=== PATIENT | female | born 1930 | race Caucasian/White ===

== ENCOUNTER 2016-09-01 12:22 | Emergency (ER) | payer MEDICARE, BC ==
[~2016-09-01] VITALS: Ht 170.2 cm; Wt 75.0 kg
[~2016-09-01 12:22] MED LIST: ALBU6.7H INH; ALLO100T PO; AMLO5TAB22 PO; AMOX500T PO; B COTAB3 PO; COZA100T PO; FLON0.053; FURO20TA PO; HYDR10TA23 PO; KLOR20TA6 PO; LEFL20 PO; LEVO.1 PO; LUTE20TA PO; META48.53 PO; NEXI20CA PO; PRAD75CA PO; PRED20 PO; TIMO0.255 OU; TOPR50TA PO; TRAD5TAB PO; VITA400C28 PO; ZITH250T PO
[2016-09-01 12:26] VITALS: BP 188/89; PULSE 100; TEMP 97.3; O2SAT 98
--- NOTE | 2016-09-01 13:57 | PD ---
HPI Chief Complaint: Abnormal Results Time Seen by Provider: 13:53 Travel History International Travel<30 days: No Contact w/Intl Traveler<30days: No Traveled to known affect area: No History of Present Illness HPI The patient is an 86-year-old female sent by Dr. Waite to be evaluated due to low hemoglobin and possible congestive heart failure. She states she's been short of breath with a nonproductive cough and increasing lower extremity edema for the last 2-3 weeks. She denies any nausea, vomiting, fever, chills, chest pain, abdominal pain. She states that Dr. Waite increased her Lasix to 40 mg twice daily but she continues to be symptomatic. Patient's primary doctor is Justin Byrd, Dr. Hernandez is her security dispatcher. Her past medical history significant for diabetes, hypertension, renal carcinoma status post nephrectomy , atrial fibrillation, parathyroidectomy. PFSH Past Medical History Arthritis: Yes (rhumatoid arthritis) Autoimmune Disease: Yes (RHEUMATOID ARTHRITIS) Anxiety: No Depression: No Heart Rhythm Problems: Yes (A.FIB) Cancer: Yes (right KIDNEY- nephrectomy) Cardiac Catheterization: Yes (NO STENTS) Cardiovascular Problems: Yes High Cholesterol: Yes Chemotherapy: No Chest Pain: No Congestive Heart Failure: Yes Cerebrovascular Accident: No Diabetes: Yes Patient Takes Glucophage: No Diminished Hearing: No Endocrine: Yes Gastrointestinal Disorders: Yes GERD: Yes Glaucoma: Yes Gout: Yes Genitourinary: Yes (R KIDNEY REMOVED DUE TO CANCER) Hiatal Hernia: Yes Hypertension: Yes Implanted Vascular Access Dvce: No Kidney Stones: No Musculoskeletal: Yes Neurologic: No Psychiatric: No Reproductive: No Respiratory: No Immunizations Current: No Pancreatitis: Yes Radiation Therapy: No Renal Failure: No Thyroid Disease: Yes Triglycerides - High: Yes Ulcer: No PNEUMOCCOCAL Vaccine (Year): 2009 ?: Not Past Surgical History Abdominal Surgery: Yes (28 ft. of colon removed 2010) Appendectomy: Yes Arteriovenous Shunt: No Cardiac Surgery: Yes (CARDIAC CATH) Cholecystectomy: Yes Ear Surgery: No Endocrine Surgery: Yes (PARATHYROIDECTOMY) Eye Surgery: Yes (L EYE SCARE TISSUE REMOVED FROM RETINA , L EYE CATARACT REMOVED) Genitourinary Surgery: Yes (R NEPHRECTOMY 2003) Gynecologic Surgery: Yes (HYSTERECTOMY) Hysterectomy: Yes Neurologic Surgery: No Oral Surgery: No Thoracic Surgery: Yes (BILATERAL LUMPECTOMY) Other Surgery: Yes Social History Alcohol Use: No Tobacco Use: No Substance Use: No Allergies-Medications (Allergen,Severity, Reaction): Coded Allergies: Adhesives (Verified Allergy, Severe, skin breakdown, 09/01/16) PATIENT STATES NO ISSUES WITH TAPES/ADHESIVES Cytomel (Verified Allergy, Severe, hypertension, 09/01/16) Reported Meds & Prescriptions Reported Meds & Active Scripts Active Reported Biotin 1,000 Mcg Tab 1,000 Mg PO DAILY Timoptic Opth Drops (Timolol Opth Drops) 0.5 % Soln 1 Drop EACH EYE BID Preservision Areds (Multiple Vitamins W/ Minerals) 1 Tab 1 Tab PO DAILY Metamucil (Psyllium Hydrophilic Mucilloid) 48.57 % Pow PO DAILY Take 1 teaspoonful daily Vitamin B Complex (B-Complex Vitamins) 1 Tab 1 Tab PO DAILY Lutein 20 Mg Cap 20 Mg PO DAILY Multivitamin Women 50+ (Multiple Vitamins W/ Minerals) 1 Tab Tab 1 Tab PO DAILY Citracal Maximum (Calcium Citrate-Vitamin D) 315-250 Mg-Unit Tab 2 Tab PO BID Allopurinol 100 Mg Tab 100 Mg PO DAILY Nexium (Esomeprazole DR) 40 Mg Capdr 40 Mg PO DAILY Leflunomide 20 Mg Tab 20 Mg PO WEFR Take 1 tablet (20mg) on Tuesday,Tuesday and Tuesday Tradjenta (Linagliptin) 5 Mg Tab 5 Mg PO DAILY Lasix (Furosemide) 20 Mg Tab 20 Mg PO DAILY IN THE PM Lasix (Furosemide) 40 Mg Tab 40 Mg PO DAILY IN THE AM Levothyroxine (Levothyroxine Sodium) 100 Mcg Tab 100 Mcg PO DAILY Metoprolol Succinate ER 24 HR (Metoprolol Succinate) 100 Mg Tab 100 Mg PO BID Hydralazine (Hydralazine HCl) 10 Mg Tab 20 Mg PO TID Take with a meal Losartan (Losartan Potassium) 100 Mg Tab 100 Mg PO HS Norvasc (Amlodipine Besylate) 5 Mg Tab 5 Mg PO BID Crestor (Rosuvastatin Calcium) 10 Mg Tab 10 Mg PO HS Review of Systems Except as stated in HPI: all other systems reviewed are Neg General / Constitutional: No: Fever Eyes: No: Visual changes HENT: No: Headaches, Lightheadedness Cardiovascular: Positive: Edema, No: Chest Pain or Discomfort Respiratory: Positive: Cough, Shortness of Breath Gastrointestinal: No: Nausea, Abdominal Pain Physical Exam Narrative GENERAL: Well-developed, well-nourished, alert elderly female. Resting comfortably in no acute distress. SKIN: Warm and dry. HEAD: Atraumatic. Normocephalic. EYES: Pupils equal and round. No scleral icterus. No injection or drainage. ENT: No nasal bleeding or discharge. Mucous membranes pink and moist. NECK: Trachea midline. No JVD. CARDIOVASCULAR: Irregularly irregular. No murmur appreciated. 2+ pitting bilateral lower extremity edema. RESPIRATORY: No accessory muscle use. Diminished in bases. GASTROINTESTINAL: Abdomen soft, non-tender, nondistended. Hepatic and splenic margins not palpable. MUSCULOSKELETAL: No obvious deformities. No clubbing. No cyanosis. No edema. NEUROLOGICAL: Awake and alert. No obvious cranial nerve deficits. Motor grossly within normal limits. Normal speech. PSYCHIATRIC: Appropriate mood and affect; insight and judgment normal. Data Data Last Documented VS Vital Signs Date Time Temp Pulse Resp B/P Pulse Ox O2 Delivery O2 Flow Rate FiO2 09/01/16 16:45 94 18 167/94 98 Room Air 09/01/16 15:35 2 09/01/16 12:26 97.3 Orders Complete Blood Count With Diff (09/01/16 13:50) Comprehensive Metabolic Panel (09/01/16 13:50) B-Type Natriuretic Peptide (09/01/16 13:50) Act Partial Throm Time (Ptt) (09/01/16 13:50) Prothrombin Time / Inr (Pt) (09/01/16 13:50) Magnesium (Mg) (09/01/16 13:50) Ckmb (Isoenzyme) Profile (09/01/16 13:50) Troponin I (09/01/16 13:50) Urinalysis - C+S If Indicated (09/01/16 13:50) Electrocardiogram (09/01/16 13:50) Chest, Pa & Lat (09/01/16 13:50) Type And Screen (09/01/16 13:50) Furosemide Inj (Lasix Inj) (09/01/16 16:15) Potassium Chloride (Kcl) (09/01/16 16:15) Labs Laboratory Tests Test 09/01/16 14:03 White Blood Count 7.7 TH/MM3 Red Blood Count 3.50 MIL/MM3 Hemoglobin 9.7 GM/DL Hematocrit 30.4 % Mean Corpuscular Volume 86.9 FL Mean Corpuscular Hemoglobin 27.6 PG Mean Corpuscular Hemoglobin 31.8 % Concent Red Cell Distribution Width 18.9 % Platelet Count 293 TH/MM3 Mean Platelet Volume 8.4 FL Neutrophils (%) (Auto) 68.5 % Lymphocytes (%) (Auto) 12.1 % Monocytes (%) (Auto) 13.6 % Eosinophils (%) (Auto) 3.5 % Basophils (%) (Auto) 2.3 % Neutrophils # (Auto) 5.3 TH/MM3 Lymphocytes # (Auto) 0.9 TH/MM3 Monocytes # (Auto) 1.1 TH/MM3 Eosinophils # (Auto) 0.3 TH/MM3 Basophils # (Auto) 0.2 TH/MM3 CBC Comment DIFF FINAL Differential Comment Prothrombin Time 12.1 SEC Prothromb Time International 1.1 RATIO Ratio Activated Partial 31.1 SEC Thromboplast Time Urine Color YELLOW Urine Turbidity CLEAR Urine pH 5.5 Urine Specific [place] 1.007 Urine Protein 30 mg/dL Urine Glucose (UA) NEG mg/dL Urine Ketones NEG mg/dL Urine Occult Blood NEG Urine Nitrite NEG Urine Bilirubin NEG Urine Urobilinogen LESS THAN 2.0 MG/DL Urine Leukocyte Esterase TRACE Urine RBC LESS THAN 1 /hpf Urine WBC 4 /hpf Urine Hyaline Casts 2 /lpf Microscopic Urinalysis Comment CULT NOT INDICATED Sodium Level 143 MEQ/L Potassium Level 3.7 MEQ/L Chloride Level 101 MEQ/L Carbon Dioxide Level 32.3 MEQ/L Anion Gap 10 MEQ/L Blood Urea Nitrogen 30 MG/DL Creatinine 1.97 MG/DL Estimat Glomerular Filtration 24 ML/MIN Rate Random Glucose 104 MG/DL Calcium Level 9.7 MG/DL Magnesium Level 2.1 MG/DL Total Bilirubin 0.4 MG/DL Aspartate Amino Transf 16 U/L (AST/SGOT) Alanine Aminotransferase 20 U/L (ALT/SGPT) Alkaline Phosphatase 105 U/L Total Creatine Kinase 40 U/L Troponin I LESS THAN 0.02 NG/ML B-Type Natriuretic Peptide 604 PG/ML Total Protein 7.3 GM/DL Albumin 3.9 GM/DL Blood Type O POSITIVE Antibody Screen NEGATIVE MDM Medical Decision Making Medical Screen Exam Complete: Yes Emergency Medical Condition: Yes Interpretation(s) Vital Signs Date Time Temp Pulse Resp B/P Pulse Ox O2 Delivery O2 Flow Rate FiO2 09/01/16 12:26 97.3 100 188/89 98 Room Air Differential Diagnosis CHF versus anemia versus acute on chronic renal failure versus electrolyte abnormality versus cardiac arrhythmia versus other Narrative Course Patient is an 86-year-old female sent to the emergency department for evaluation by Dr. Waite. Labs and imaging were ordered and pending, EKG ordered. Workup initiated in triage, care patient will be transferred to provider when a medical bed is available. Sylvia Aguilera [facility] Sep 01, 2016 13:57
[2016-09-01 14:19] LABS: AUTOMATED NEUTROPHIL # 5.3 TH/MM3 (1.8-7.7); BASOPHIL # 0.2 TH/MM3 (0-0.2); BASOPHIL % 2.3 % (0.0-2.0); EOSINOPHIL # 0.3 TH/MM3 (0-0.4); EOSINOPHIL % 3.5 % (0.0-4.0); HEMATOCRIT 30.4 % (35.0-46.0); HEMO FLAGS DIFF FINAL; LYMPH % 12.1 % (9.0-44.0); LYMPHOCYTE # 0.9 TH/MM3 (1.0-4.8); MEAN CELL VOLUME 86.9 FL (80.0-100.0); MEAN CORPUSCULAR HEMOGLOBIN 27.6 PG (27.0-34.0); MEAN CORPUSCULAR HGB CONC 31.8 % (32.0-36.0); MONO % 13.6 % (0.0-8.0); NEUT % 68.5 % (16.0-70.0); PLATELET COUNT 293 TH/MM3 (150-450); RED CELL DISTRIBUTION WIDTH 18.9 % (11.6-17.2); WHITE BLOOD COUNT 7.7 TH/MM3 (4.0-11.0)
[2016-09-01 14:22] LABS: BLOOD, URINE NEG (NEG); GLUCOSE,URINE NEG (NEG); HYALINE CAST, URINE 2 /lpf (RARE); KETONE, URINE NEG (NEG); NITRITE,URINE NEG (NEG); PH, URINE 5.5 (5.0-8.5); URINE COLOR YELLOW (YELLW/STRAW)
[2016-09-01 14:26] LABS: COMMENT (UR) CULT NOT INDICATED; CULTURE IF INDICATED CULT NOT INDICATED
[2016-09-01 14:32] LABS: APTT (PATIENT) 31.1 SEC (24.3-30.1); INTERNATIONAL NORMALIZED RATIO 1.1 RATIO; PROTHROMBIN TIME - PATIENT 12.1 SEC (9.8-11.6)
[2016-09-01 14:43] LABS: ANION GAP 10 MEQ/L (5-15); AST (GOT) 16 U/L (15-37); BICARBONATE 32.3 MEQ/L (21.0-32.0); BLOOD UREA NITROGEN 30 MG/DL (7-18); CHLORIDE 101 MEQ/L (98-107); GLOMERULAR FILTRATION RATE 24 ML/MIN (>89); MAGNESIUM 2.1 MG/DL (1.5-2.5); POTASSIUM 3.7 MEQ/L (3.5-5.1); SODIUM (NA) 143 MEQ/L (136-145)
[2016-09-01 14:48] LABS: ALKALINE PHOSPHATASE 105 U/L (45-117); ALT (GPT) 20 U/L (10-53); TOTAL BILIRUBIN ADULT 0.4 MG/DL (0.2-1.0)
[2016-09-01 14:52] LABS: CREATINE KINASE 40 U/L (26-192)
--- NOTE | 2016-09-01 15:10 | RADRPT ---
EXAM DATE/TIME: 09/01/2016 14:39 [facility] COMPARISON: CHEST PA & LAT, June 30, 2014, 12:09. INDICATIONS : Patient has been short of breath and congested for a month. She also has fluid in her legs. MEDICAL HISTORY : None. SURGICAL HISTORY : None. ENCOUNTER: Initial ACUITY: 1 month PAIN SCORE: 0/10 LOCATION: chest FINDINGS: Moderate pleural effusion with basilar consolidation has developed on the left. Right lung remains cl ear. No pneumothorax on either side. Mild cardiomegaly is stable. CONCLUSION: Nonspecific moderate pleural effusion and basilar consolidation on the left, new. Jcarlos Cartwright MD on September 01, 2016 at 15:08 Board Certified Radiologist. This report was verified electronically.
[2016-09-01 15:15] VITALS: BP 171/91; PULSE 96; RESP 18; O2SAT 98
[2016-09-01] MEDS ORDERED: ALLO100T PO (16:01)
[2016-09-01] MEDS ORDERED: LOSA100T PO (16:01)
[2016-09-01] MEDS ORDERED: ROSU10 PO (16:01)
[2016-09-01] MEDS ORDERED: LEVO100T5 PO (16:01)
[2016-09-01] MEDS ORDERED: AMLO5 PO (16:01)
[2016-09-01] MEDS ORDERED: LUTE20CA PO (16:01)
[2016-09-01] MEDS ORDERED: MULT1TAB96 PO (16:01)
[2016-09-01] MEDS ORDERED: OCUVTAB4 PO (16:01)
[2016-09-01] MEDS ORDERED: VITATAB11 PO (16:01)
[2016-09-01] MEDS ORDERED: METO100T9 PO (16:01)
[2016-09-01] MEDS ORDERED: NEXI40CA PO (16:01)
[2016-09-01] MEDS ORDERED: TIMO0.5S5 EACH EYE (16:01)
[2016-09-01] MEDS ORDERED: CITRTAB11 PO (16:01)
[2016-09-01] MEDS ORDERED: HYDR10TA23 PO (16:01)
[2016-09-01] MEDS ORDERED: BIOT1000 PO (16:01)
[2016-09-01] MEDS ORDERED: FURO1TAB62 PO (16:01)
[2016-09-01] MEDS ORDERED: FURO1TAB60 PO (16:01)
[2016-09-01] MEDS ORDERED: META48.54 PO (16:01)
[2016-09-01] MEDS ORDERED: TRAD5TAB PO (16:01)
[2016-09-01] MEDS ORDERED: LEFL1TAB3 PO (16:01)
--- NOTE | 2016-09-01 16:09 | PD ---
Physical Exam Narrative Patient was seen by safety assistant and signed out to me. Data Data Last Documented VS Vital Signs Date Time Temp Pulse Resp B/P Pulse Ox O2 Delivery O2 Flow Rate FiO2 09/01/16 15:35 98 Nasal Cannula 2 09/01/16 15:15 96 18 171/91 09/01/16 12:26 97.3 Orders Complete Blood Count With Diff (09/01/16 13:50) Comprehensive Metabolic Panel (09/01/16 13:50) B-Type Natriuretic Peptide (09/01/16 13:50) Act Partial Throm Time (Ptt) (09/01/16 13:50) Prothrombin Time / Inr (Pt) (09/01/16 13:50) Magnesium (Mg) (09/01/16 13:50) Ckmb (Isoenzyme) Profile (09/01/16 13:50) Troponin I (09/01/16 13:50) Urinalysis - C+S If Indicated (09/01/16 13:50) Electrocardiogram (09/01/16 13:50) Chest, Pa & Lat (09/01/16 13:50) Type And Screen (09/01/16 13:50) Furosemide Inj (Lasix Inj) (09/01/16 16:15) Potassium Chloride (Kcl) (09/01/16 16:15) Labs Laboratory Tests Test 09/01/16 14:03 White Blood Count 7.7 TH/MM3 Red Blood Count 3.50 MIL/MM3 Hemoglobin 9.7 GM/DL Hematocrit 30.4 % Mean Corpuscular Volume 86.9 FL Mean Corpuscular Hemoglobin 27.6 PG Mean Corpuscular Hemoglobin 31.8 % Concent Red Cell Distribution Width 18.9 % Platelet Count 293 TH/MM3 Mean Platelet Volume 8.4 FL Neutrophils (%) (Auto) 68.5 % Lymphocytes (%) (Auto) 12.1 % Monocytes (%) (Auto) 13.6 % Eosinophils (%) (Auto) 3.5 % Basophils (%) (Auto) 2.3 % Neutrophils # (Auto) 5.3 TH/MM3 Lymphocytes # (Auto) 0.9 TH/MM3 Monocytes # (Auto) 1.1 TH/MM3 Eosinophils # (Auto) 0.3 TH/MM3 Basophils # (Auto) 0.2 TH/MM3 CBC Comment DIFF FINAL Differential Comment Prothrombin Time 12.1 SEC Prothromb Time International 1.1 RATIO Ratio Activated Partial 31.1 SEC Thromboplast Time Urine Color YELLOW Urine Turbidity CLEAR Urine pH 5.5 Urine Specific [place] 1.007 Urine Protein 30 mg/dL Urine Glucose (UA) NEG mg/dL Urine Ketones NEG mg/dL Urine Occult Blood NEG Urine Nitrite NEG Urine Bilirubin NEG Urine Urobilinogen LESS THAN 2.0 MG/DL Urine Leukocyte Esterase TRACE Urine RBC LESS THAN 1 /hpf Urine WBC 4 /hpf Urine Hyaline Casts 2 /lpf Microscopic Urinalysis Comment CULT NOT INDICATED Sodium Level 143 MEQ/L Potassium Level 3.7 MEQ/L Chloride Level 101 MEQ/L Carbon Dioxide Level 32.3 MEQ/L Anion Gap 10 MEQ/L Blood Urea Nitrogen 30 MG/DL Creatinine 1.97 MG/DL Estimat Glomerular Filtration 24 ML/MIN Rate Random Glucose 104 MG/DL Calcium Level 9.7 MG/DL Magnesium Level 2.1 MG/DL Total Bilirubin 0.4 MG/DL Aspartate Amino Transf 16 U/L (AST/SGOT) Alanine Aminotransferase 20 U/L (ALT/SGPT) Alkaline Phosphatase 105 U/L Total Creatine Kinase 40 U/L Troponin I LESS THAN 0.02 NG/ML B-Type Natriuretic Peptide 604 PG/ML Total Protein 7.3 GM/DL Albumin 3.9 GM/DL Blood Type O POSITIVE Antibody Screen NEGATIVE MDM Supervised Visit with BRAULIO: Yes Interpretation(s) Last Impressions Chest X-Ray 09/01/16 1350 Signed Impressions: Service Date/Time: Thursday, September 01, 2016 14:39 - CONCLUSION: Nonspecific moderate pleural effusion and basilar consolidation on the left, new. Jcarlos Cartwright MD 1605 p.m. CBC WBC 7.7. Hemoglobin 9.7 hematocrit 30.4. BUN 30. Creatinine 1.97. BNP 604. UA is negative. Narrative Course I spoke with Dr. Waite, patient's repair mechanic. Patient most recent hemoglobin was 8.3. Previous hemoglobin was 10.0. Today's hemoglobin 9.7. Patient recently had positive Hemoccult at home test. Patient was seen by personal physician and referred to GI for colonoscopy. Patient is pending for colonoscopy next week. Dr. Waite advised Lasix IV and discharged patient to follow up with personal physician. Patient stopped taking Plavix 2 days ago after advise from Dr. Hernandez, her childcare administrator. Lasix 40 mg IV. KCl 20 mEq by mouth. Diagnosis Primary Impression: Anemia Qualified Code: D64.9 - Anemia, unspecified type Additional Impression: Acute exacerbation of CHF (congestive heart failure) Qualified Code: I50.9 - Acute on chronic congestive heart failure, unspecified congestive heart failure type Patient Instructions: General Instructions Additional Instruction: Continue with medications. Follow-up with personal physician, GI specialist and nephrology. Return if worse. Med/Other Pt SpecificInfo: No Change to Meds Disposition: 01 DISCHARGE HOME Condition: Stable Charlie Johnson MD Sep 01, 2016 16:09
[2016-09-01] MEDS ORDERED: FUROSEMIDE 40 MG/4 ML VIAL IV PUSH ONE (16:15)
[2016-09-01] MEDS ORDERED: POTASSIUM CHLORIDE 20 MEQ CONTROLLED RELEASE TAB PO ONE (16:15)
[2016-09-01 16:45] VITALS: BP 167/94; PULSE 94; RESP 18; O2SAT 98
--- NOTE | 2016-09-02 12:59 | EKG ---
Date Performed: 09/01/2016 Time Performed: 14:15:32 PTAGE: 86 years EKG: ATRIAL FIBRILLATION CONTROLLED VENTRICULAR RATE NON SPECIFIC ST ABNORMALITY Compared to elfego or tracing no significant change PREVIOUS TRACING : 03/17/2014 07.11 DOCTOR: Jhonathan Blanco Interpretating Date/Time 09/02/2016 12:58:05
== END 2016-09-01 17:08 | disposition home or self-care (01) ==
LOC: NEPA 12:22
DX: D64.9 Anemia, unspecified (principal); I50.9 Heart failure, unspecified; R94.31 Abnormal electrocardiogram [ECG] [EKG]; J90 Pleural effusion, not elsewhere classified; I48.91 Unspecified atrial fibrillation; E11.9 Type 2 diabetes mellitus without complications; I10 Essential (primary) hypertension; E07.9 Disorder of thyroid, unspecified; R91.8 Other nonspecific abnormal finding of lung field
CPT/HCPCS: 71020; 80053; 81001; 82550; 83735; 83880; 84484; 85025; 85610; 85730; 86850; 86900; 86901; 93005; 96374; 99285; J1940

== ENCOUNTER → 2017-05-04 | Outpatient (CLI) | payer MEDICARE, BC ==
[~2017-05-04] MED LIST changes: -ALBU6.7H INH; -ALLO100T PO; +AMLO5 PO; -AMLO5TAB22 PO; -AMOX500T PO; +APIX2.5T PO; -B COTAB3 PO; +BIOT1000 PO; +BUME1TAB PO; +CITRTAB11 PO; -COZA100T PO; -FLON0.053; +FURO1TAB60 PO; +FURO1TAB62 PO; -FURO20TA PO; +HYDR-3798 PO; -HYDR10TA23 PO; -KLOR20TA6 PO; +LEFL1TAB3 PO; -LEFL20 PO; -LEVO.1 PO; +LEVO100T5 PO; +LOSA100T PO; +LUTE20CA PO; -LUTE20TA PO; -META48.53 PO; +META48.54 PO; +METO10TA4 PO; +METO1TAB43 PO; -NEXI20CA PO; +NEXI40CA PO; +OCUVTAB4 PO; +PARI1CAP4 PO; -PRAD75CA PO; -PRED20 PO; +PROC20005 SQ; +ROSU10 PO; -TIMO0.255 OU; +TIMO0.5S5 EACH EYE; -TOPR50TA PO; +ULOR40TA PO; -VITA400C28 PO; +VITATAB11 PO; -ZITH250T PO
[2017-05-04 11:30] LABS: AUTOMATED NEUTROPHIL # 4.8 TH/MM3 (1.8-7.7); BASOPHIL # 0.1 TH/MM3 (0-0.2); EOSINOPHIL # 0.2 TH/MM3 (0-0.4); EOSINOPHIL % 2.8 % (0.0-4.0); HEMATOCRIT 32.4 % (35.0-46.0); HEMO FLAGS DIFF FINAL; LYMPH % 12.9 % (9.0-44.0); LYMPHOCYTE # 0.9 TH/MM3 (1.0-4.8); MEAN CELL VOLUME 92.5 FL (80.0-100.0); MEAN CORPUSCULAR HEMOGLOBIN 29.2 PG (27.0-34.0); MEAN CORPUSCULAR HGB CONC 31.6 % (32.0-36.0); MONO % 12.9 % (0.0-8.0); NEUT % 70.4 % (16.0-70.0); PLATELET COUNT 246 TH/MM3 (150-450); RED BLOOD COUNT 3.51 MIL/MM3 (4.00-5.30); RED CELL DISTRIBUTION WIDTH 18.3 % (11.6-17.2); WHITE BLOOD COUNT 6.8 TH/MM3 (4.0-11.0)
[2017-05-04 11:40] LABS: APTT (PATIENT) 28.8 SEC (24.3-30.1); INTERNATIONAL NORMALIZED RATIO 1.1 RATIO; PROTHROMBIN TIME - PATIENT 11.7 SEC (9.8-11.6)
--- NOTE | 2017-05-04 12:20 | RADRPT ---
EXAM DATE/TIME: 05/04/2017 12:01 [facility] COMPARISON: No previous studies available for comparison. INDICATIONS : Evaluate for pneumonia, pneumothorax, or communicable disease. Pre op for Ateriovenous fistula. MEDICAL HISTORY : Hypertension. Kidney cancer. SURGICAL HISTORY : None. ENCOUNTER: Initial ACUITY: 1 day PAIN SCORE: 0/10 LOCATION: Bilateral chest FINDINGS: No infiltrate, effusion or pneumothorax demonstrated. Mild pleural and parenchymal scarring seen post erolaterally of the left lung base. Heart size stable, upper limits of normal. Thoracic aorta is tortuous and atherosclerotic. CONCLUSION: No acute cardiopulmonary disease demonstrated. Mild left base scarring. Jcarlos Cartwright MD on May 04, 2017 at 12:18 Board Certified Radiologist. This report was verified electronically.
[2017-05-04 12:40] LABS: BICARBONATE 32.4 MEQ/L (21.0-32.0); POTASSIUM 3.6 MEQ/L (3.5-5.1)
--- NOTE | 2017-05-04 16:41 | EKG ---
Date Performed: 05/04/2017 Time Performed: 10:58:59 PTAGE: 87 years EKG: ATRIAL FIBRILLATION BORDERLINE LEFT AXIS DEVIATION NONSPECIFIC ST & T-WAVE ABNORMALITY ABNO RMAL RHYTHM ECG No significant change from prior electrocardiogram. PREVIOUS TRACING : 09/01/2016 14.15 DOCTOR: Niko Kaur Interpretating Date/Time 05/04/2017 16:40:48
== END ==
LOC: CPRE 10:37
PROVIDERS: ATTEND Surgery
DX: Z01.812 Encounter for preprocedural laboratory examination (principal); Z01.810 Encounter for preprocedural cardiovascular examination; Z01.811 Encounter for preprocedural respiratory examination; N18.6 End stage renal disease
CPT/HCPCS: 36415; 71020; 80048; 85025; 85610; 85730; 93005

== ENCOUNTER → 2017-05-09 | Day surgery (SDC) | payer MEDICARE, BC ==
[~2017-05-09] VITALS: Ht 167.6 cm; Wt 76.8 kg
[~2017-05-09] MED LIST changes: +BUPIVACAINE HCL PF 0.5% 30 ML VIAL ONE; +CHLORHEXIDINE GLUCONATE 2 % 1 PACK (2 CLOTHS) TOPICAL PRN; +DEXAMETHASONE SOD PHOS 4 MG/ML VIAL IV ONE; +DO NOT ADM ANY ANTICOAGULANT DRUGS PRN; -FURO1TAB60 PO; -FURO1TAB62 PO; +HEPARIN SODIUM - IV 10,000 UNITS/10 ML VIAL ONE; +HEPARIN SODIUM - SQ 10,000 UNITS/ML VIAL ONE; +HEPARIN-NS/PF INJ 500 ML ONE; +KETAMINE HCL 500 MG/5 ML VIAL ONE; +LACTATED RINGER'S 1000 ML IV PRN; +LIDOCAINE HCL 1% PF 5 ML AMPULE OTHER ONE; -META48.54 PO; +METOPROLOL TARTRATE 25 MG TAB PO PRN; +MIDAZOLAM HCL 2 MG/2 ML VIAL ONE; +MORPHINE SULFATE 2 MG/ML INJ IV PRN; +ONDANSETRON HCL 4 MG/2 ML VIAL IV PUSH ONE; +PHENYLEPH/NS 1000 MCG/10 ML SYR IV ONE; +POVIDONE IODINE 5% (ANTISEPSIS KIT) 4 APPLICATIONS EACH NARE PRN; +PROPOFOL 200 MG/20 ML AMP IV ONE; +PROTAMINE SULFATE 50 MG/5 ML VIAL ONE; +SODIUM CHLORID 0.9% 500 ML IV PRN; +ceFAZolin 2 GM PREMIX 50 ML ONE
--- NOTE | 2017-05-09 07:46 | PD.VS.PN ---
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 No changes in medical condition that would preclude surgery. Stopped Eliquis after Sat dose. Ready for OR. Labs: Hct 32 plt 246 K 3.6 INR 1.1 Blood: none needed Imaging: Preop AVF eval reviewed - L basilic vein is adequate Orders: NPO Ancef 2g IV OCTOR Post-operative destination: PACU Operative site marked: Yes Consent: Informed consent has been obtained from Collette Perez. I have explained the procedure in detail and discussed the risks, benefits, and potential complications. All questions have been answered. Patient contact information: Kash Remy [phone] Gavino Cuevas MD May 09, 2017 07:46
--- NOTE | 2017-05-09 10:10 | HHI.PR ---
cc: Stephan Waite MD Immediate Post Op Note Procedure Date: May 09, 2017 Pre Op Diagnosis: near ESRD, need for HD access Post Op Diagnosis: near ESRD, need for HD access Surgeon: Gavino Cuevas Rnp(s): none Procedure: L brachiobasilic AVF (1st stage) Findings: 3mm vein, 2mm artery Additional Information: + thrill at conclusion palpable radial pulse Complications: none Specimen(s) removed: none Estimated blood loss: 10mL Anesthesia: LMA Drains: None Fluids: 450mL IVF Patient to: PACU Patient Condition: Good Date/Time of Procedure: SEE SURGICAL CARE RECORD Gavino Cuevas MD May 09, 2017 10:10
--- NOTE | 2017-05-09 11:18 | MP ---
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 PROCEDURE Left brachiobasilic arteriovenous fistula (first stage). ATTENDING SURGEON Gavino Cuevas MD ANESTHESIA General. INDICATIONS Ms. Perez is a 87-year-old lady who has near end-stage renal disease, not yet on dialysis. She is taken to the operating room for elective fistula creation. DESCRIPTION OF PROCEDURE Informed consent was obtained from the patient. She was taken to the operating room and placed supine on the operating table. Appropriate time-out was taken to ensure the patient's identity, the operative site and planned procedure. The administration of 2 grams of Ancef was initiated prior to skin incision and will be discontinued after single preoperative dose. Everyone in the room agreed with time-out and we proceeded. Her left upper extremity was prepped and draped. Incision was made in the medial aspect of the distal upper arm and carried down through subcutaneous tissue with electrocautery. The basilic vein was identified and dissected free for several centimeters and side branches were ligated with 3-0 Silk. The vein was marked for orientation. The brachial artery was identified in the medial aspect of the incision and dissected free. The patient was systemically heparinized with 3000 units of IV heparin. The distal end of the vein was clamped at the right angle, transected and distal end was oversewn with 3-0 Silk. Proximal and distal control of the brachial artery were obtained with profunda clamps and a longitudinal arteriotomy was made with an 11 blade and extended with [place] scissors. The vein was spatulated and sewn end-to-side with running 6-0 Prolene suture. At the completion it was flushed and noted to be hemostatic. The clamps were all released, there was nice thrill in the fistula and nice pulse in the wrist. The wound was infiltrated with Marcaine and closed with 2-0 Polysorb, 3-0 Polysorb and 4-0 Monocryl. The sponge and needle counts were correct at the end of the case. I was present and scrubbed for the entire procedure. MD FRANKY Baez/[place] /10:19 AM /11:12 AM
[2017-05-09 11:35] VITALS: BP 110/73; PULSE 76; RESP 18; TEMP 97.9; O2SAT 96
== END | disposition home or self-care (01) ==
LOC: HSDC 06:30
PROVIDERS: ATTEND Surgery
DX: I13.2 Hypertensive heart and chronic kidney disease with heart failure and with stage 5 chronic kidney disease, or end stage renal disease (principal); N18.6 End stage renal disease; I50.9 Heart failure, unspecified; E11.22 Type 2 diabetes mellitus with diabetic chronic kidney disease; D63.1 Anemia in chronic kidney disease; N25.81 Secondary hyperparathyroidism of renal origin
CPT/HCPCS: 01844; 36821; 86850; 86900; 86901; J0690; J1100; J1644; J2250; J2370; J2405; J2720; J3010; J7040

== ENCOUNTER 2017-07-07 15:50 | Inpatient (IN) | payer MEDICARE, BC ==
[~2017-07-07] VITALS: Ht 167.6 cm; Wt 80.5 kg
[2017-07-07] VITALS (7 sets, daily range): BP systolic 102–132; BP diastolic 56–75; PULSE 94–101; RESP 16–18; TEMP 97.8–98.1; O2SAT 96–98
[~2017-07-07 15:50] MED LIST changes: -BUPIVACAINE HCL PF 0.5% 30 ML VIAL ONE; -CHLORHEXIDINE GLUCONATE 2 % 1 PACK (2 CLOTHS) TOPICAL PRN; -DEXAMETHASONE SOD PHOS 4 MG/ML VIAL IV ONE; -DO NOT ADM ANY ANTICOAGULANT DRUGS PRN; -HEPARIN SODIUM - IV 10,000 UNITS/10 ML VIAL ONE; -HEPARIN SODIUM - SQ 10,000 UNITS/ML VIAL ONE; -HEPARIN-NS/PF INJ 500 ML ONE; -KETAMINE HCL 500 MG/5 ML VIAL ONE; -LACTATED RINGER'S 1000 ML IV PRN; -LIDOCAINE HCL 1% PF 5 ML AMPULE OTHER ONE; -METOPROLOL TARTRATE 25 MG TAB PO PRN; -MIDAZOLAM HCL 2 MG/2 ML VIAL ONE; -MORPHINE SULFATE 2 MG/ML INJ IV PRN; -ONDANSETRON HCL 4 MG/2 ML VIAL IV PUSH ONE; -PHENYLEPH/NS 1000 MCG/10 ML SYR IV ONE; -POVIDONE IODINE 5% (ANTISEPSIS KIT) 4 APPLICATIONS EACH NARE PRN; -PROPOFOL 200 MG/20 ML AMP IV ONE; -PROTAMINE SULFATE 50 MG/5 ML VIAL ONE; -SODIUM CHLORID 0.9% 500 ML IV PRN; -ceFAZolin 2 GM PREMIX 50 ML ONE
[2017-07-07] MEDS ORDERED: PANTOPRAZOLE INJ 80 MG in SODIUM CHLORIDE 0.9% INJ 35 ML IV ONE (19:41)
[2017-07-07] MEDS ORDERED: PANTOPRAZOLE INJ 80 MG in SODIUM CHLORIDE 0.9% INJ 100 ML IV SCH (19:41)
--- NOTE | 2017-07-07 19:48 | PD ---
HPI Chief Complaint: GI Complaint Time Seen by Provider: 19:25 Travel History International Travel<30 days: No Contact w/Intl Traveler<30days: No Traveled to known affect area: No History of Present Illness HPI 87yo F with PMH of afib on eliquis, CHF, ESRD not on HD yet presents to the ED with c/o dark stool for 1.5 weeks. Pt said she called her ice handler Dr. Waite's office and was told to come to the ED. Pt has also been coughing for a few days with rhinorrhea. Denies any fever, chest pain, sob, n/v, abdominal pain, focal weakness or numbness. Pt states she does feel more sob with taking a few steps which is new for her. Dr. Hernandez is her shoe dresser. PFSH Past Medical History Arthritis: Yes (RA) Autoimmune Disease: Yes (RHEUMATOID ARTHRITIS) Anxiety: No Depression: No Heart Rhythm Problems: Yes Cancer: Yes (right KIDNEY- nephrectomy, melanomax2) Cardiac Catheterization: Yes (NO STENTS) Cardiovascular Problems: Yes (AFIB) High Cholesterol: Yes Chemotherapy: No Chest Pain: No Congestive Heart Failure: Yes Cerebrovascular Accident: No Diabetes: Yes (type ii) Patient Takes Glucophage: No Diminished Hearing: No Endocrine: Yes Gastrointestinal Disorders: Yes (REFLUX) GERD: Yes Glaucoma: Yes Gout: Yes Genitourinary: Yes (R KIDNEY REMOVED DUE TO CANCER) Hepatitis: No Hiatal Hernia: Yes Hypertension: Yes Immune Disorder: Yes (RA) Implanted Vascular Access Dvce: No Kidney Stones: No Musculoskeletal: Yes (RHEUMATOID ARTHRITIS, ROTATOR CUFF TEAR RIGHT) Neurologic: No Psychiatric: No Reproductive: No Respiratory: No Immunizations Current: Yes Pancreatitis: Yes Radiation Therapy: No Renal Failure: No Thyroid Disease: Yes Triglycerides - High: Yes Ulcer: No Tetanus Vaccination: > 5 Years Influenza Vaccination: Yes PNEUMOCCOCAL Vaccine (Year): 2009 ?: Not Past Surgical History Abdominal Surgery: Yes ( COLON RESECTION, bobby, appy) AICD: No Appendectomy: Yes Arteriovenous Shunt: No Cardiac Surgery: Yes (CARDIAC CATH) Cholecystectomy: Yes Ear Surgery: No Endocrine Surgery: Yes (PARATHYROIDx2) Eye Surgery: Yes (LEFT EYE RETINAL) Genitourinary Surgery: Yes (R NEPHRECTOMY 2003) Gynecologic Surgery: Yes (HYSTERECTOMY) Hysterectomy: Yes Joint Replacement: No Neurologic Surgery: No Oral Surgery: No Pacemaker: No Thoracic Surgery: Yes (BILATERAL LUMPECTOMY) Other Surgery: Yes (FISTULA LT ARM) Social History Alcohol Use: No Tobacco Use: No Substance Use: No Allergies-Medications (Allergen,Severity, Reaction): Coded Allergies: adhesive (Verified Allergy, Severe, skin breakdown, 07/07/17) PATIENT STATES NO ISSUES WITH TAPES/ADHESIVES diltiazem (Verified Allergy, Severe, 07/07/17) SOB, GI UPSET liothyronine (Verified Allergy, Severe, hypertension, 07/07/17) liotrix (Verified Allergy, Severe, hypertension, 07/07/17) nitrofurantoin (Verified Allergy, Severe, B/P ELEVATED, 07/07/17) Reported Meds & Prescriptions Reported Meds & Active Scripts Active Reported Eliquis (Apixaban) 2.5 Mg Tab 2.5 Mg PO BID Uloric (Febuxostat) 40 Mg Tab 40 Tab PO DAILY Paricalcitol 1 Mcg Cap 1 Mcg PO 3XWEEK Bumetanide 1 Mg Tab 1 Mg PO BID Metolazone 10 Mg Tab 10 Mg PO QOD Hydralazine HCl 10 Mg Tablet 20 Mg PO TID Procrit Inj (Epoetin Marcelo) 20,000 Unit/Ml Inj 20,000 Units SQ EVERY 2 WEEKS Biotin 1,000 Mcg Tab 1,000 Mg PO DAILY Timoptic Opth Drops (Timolol Opth Drops) 0.5 % Soln 1 Drop EACH EYE BID Preservision Areds (Multiple Vitamins W/ Minerals) 1 Tab 1 Tab PO DAILY Vitamin B Complex (B-Complex Vitamins) 1 Tab 1 Tab PO DAILY Lutein 20 Mg Cap 20 Mg PO DAILY Citracal Maximum (Calcium Citrate-Vitamin D) 315-250 Mg-Unit Tab 2 Tab PO BID Nexium (Esomeprazole DR) 40 Mg Capdr 40 Mg PO DAILY Leflunomide 20 Mg Tab 20 Mg PO MOWE Take 1 tablet (20mg) on Tuesday,Tuesday and Tuesday Tradjenta (Linagliptin) 5 Mg Tab 5 Mg PO DAILY Levothyroxine (Levothyroxine Sodium) 100 Mcg Tab 100 Mcg PO DAILY Metoprolol Succinate ER 24 HR (Metoprolol Succinate) 100 Mg Tab 100 Mg PO BID Losartan (Losartan Potassium) 100 Mg Tab 100 Mg PO HS Norvasc (Amlodipine Besylate) 5 Mg Tab 5 Mg PO BID Crestor (Rosuvastatin Calcium) 10 Mg Tab 10 Mg PO HS Review of Systems Except as stated in HPI: all other systems reviewed are Neg Physical Exam Narrative GENERAL: 87yo F not in distress. SKIN: Focused skin assessment warm/dry. HEAD: Atraumatic. Normocephalic. EYES: Pupils equal and round. No scleral icterus. No injection or drainage. ENT: No nasal bleeding or discharge. Mucous membranes pink and moist. NECK: Trachea midline. No JVD. CARDIOVASCULAR: Irregular rate and rhythm. No murmur appreciated. RESPIRATORY: No accessory muscle use. Bibasilar crackles. GASTROINTESTINAL: Abdomen soft, +TTP RLQ. No rebound tenderness or guarding. MUSCULOSKELETAL: LUE: +AV fistula with thrill. Bilateral lower ext edema. NEUROLOGICAL: Awake and alert. No obvious cranial nerve deficits. Motor grossly within normal limits. Normal speech. PSYCHIATRIC: Appropriate mood and affect; insight and judgment normal. Data Data Last Documented VS Vital Signs Date Time Temp Pulse Resp B/P (MAP) Pulse Ox O2 Delivery O2 Flow Rate FiO2 07/07/17 21:32 95 18 102/66 (78) 97 Room Air 07/07/17 20:30 97.8 Orders Orders Complete Blood Count With Diff (07/07/17 19:41) Comprehensive Metabolic Panel (07/07/17 19:41) Prothrombin Time / Inr (Pt) (07/07/17 19:41) Act Partial Throm Time (Ptt) (07/07/17 19:41) Urinalysis - C+S If Indicated (07/07/17 19:41) Type And Screen (07/07/17 19:41) Sodium Chloride 0.9... W/Pantoprazole In (07/07/17 19:41) Ct Abd/Pel W/O Iv Contrast (07/07/17 ) Chest, Single Ap (07/07/17 ) Electrocardiogram (07/07/17 ) B-Type Natriuretic Peptide (07/07/17 19:44) Pantoprazole Inj (Protonix Inj) (07/07/17 20:15) Troponin I (07/07/17 19:50) Red Blood Cells (Rbc) (07/07/17 21:24) Blood Product Administration (07/07/17 21:24) Sodium Chlor 0.9% 250 Ml Inj (Ns 250 Ml (07/07/17 21:30) Admit Order (Ed Use Only) (07/07/17 21:47) Labs Laboratory Tests Test 07/07/17 19:50 07/07/17 21:26 White Blood Count 9.9 TH/MM3 Red Blood Count 2.93 MIL/MM3 Hemoglobin 7.9 GM/DL Hematocrit 25.6 % Mean Corpuscular Volume 87.2 FL Mean Corpuscular Hemoglobin 26.9 PG Mean Corpuscular Hemoglobin Concent 30.8 % Red Cell Distribution Width 17.4 % Platelet Count 413 TH/MM3 Mean Platelet Volume 7.6 FL Neutrophils (%) (Auto) 74.6 % Lymphocytes (%) (Auto) 11.4 % Monocytes (%) (Auto) 12.3 % Eosinophils (%) (Auto) 1.3 % Basophils (%) (Auto) 0.4 % Neutrophils # (Auto) 7.5 TH/MM3 Lymphocytes # (Auto) 1.1 TH/MM3 Monocytes # (Auto) 1.2 TH/MM3 Eosinophils # (Auto) 0.1 TH/MM3 Basophils # (Auto) 0.0 TH/MM3 CBC Comment DIFF FINAL Differential Comment Prothrombin Time 12.4 SEC Prothromb Time International Ratio 1.2 RATIO Activated Partial Thromboplast Time 26.8 SEC Blood Urea Nitrogen 86 MG/DL Creatinine 2.90 MG/DL Random Glucose 123 MG/DL Total Protein 7.4 GM/DL Albumin 3.5 GM/DL Calcium Level 9.7 MG/DL Alkaline Phosphatase 111 U/L Aspartate Amino Transf (AST/SGOT) 18 U/L Alanine Aminotransferase (ALT/SGPT) 17 U/L Total Bilirubin 0.4 MG/DL Sodium Level 138 MEQ/L Potassium Level 3.2 MEQ/L Chloride Level 96 MEQ/L Carbon Dioxide Level 33.7 MEQ/L Anion Gap 8 MEQ/L Estimat Glomerular Filtration Rate 15 ML/MIN Troponin I 0.02 NG/ML B-Type Natriuretic Peptide 754 PG/ML Urine Color YELLOW Urine Turbidity CLEAR Urine pH 5.5 Urine Specific Roberts 1.012 Urine Protein TRACE mg/dL Urine Glucose (UA) NEG mg/dL Urine Ketones NEG mg/dL Urine Occult Blood NEG Urine Nitrite NEG Urine Bilirubin NEG Urine Leukocyte Esterase SMALL Urine WBC 15-19 /hpf Urine WBC Clumps FEW Urine Squamous Epithelial Cells 0-5 /hpf Urine Bacteria OCC /hpf Microscopic Urinalysis Comment CULTURE INDICATED MDM Medical Decision Making Medical Screen Exam Complete: Yes Emergency Medical Condition: Yes Interpretation(s) EKG: Afib at 91bpm. ST depression V3-V6. Differential Diagnosis Colitis vs. malignancy vs. AV malformation vs. CHF exacerbation vs. pneumonia Narrative Course 87yo F with dark stool that is positive for hemaprompt for 1.5 weeks. Pt denies any chest pain or sob but does have exertional dyspnea that is worst than normal for a few days. EKG also with ischemic changes. O2 sat is 98% on RA and pt is speaking in complete sentences. Labs reviewed, no leukocytosis. H /H low at 7.9/25.6 which is at baseline. BNP elevated at 754. Troponin negative. Mildly hypokalemic, replace orally. BUN/creatinine 86/2.90 which is also baseline. Pt has AV fistula with good thrill in left arm and said that it has been 7 weeks but not ready yet. Said Dr. Cuevas saw her and plan to put in a catheter to start hemodialysis. CT a/p showed no acute changes. There is left renal lesions that can be further evaluated with outpatient MRI. CXR showed small left lung effusion. Mild compensated cardiomegaly. Pt given protonix and will transfuse 1 unit of RBC very slowly over [address] King and accepted to her service. Critical Care Narrative Aggregate critical care time was 35 minutes. Time to perform other separately billable procedures was not included in the critical care time. My time did not include minutes spent treating any other patients simultaneously or on activities that did not directly contribute to the patient's treatment. The services I provided to this patient were to treat and/or prevent clinically significant deterioration that could result in: cardiovascular collapse or . I provided critical care services requiring my management, as noted below: Chart data review, documentation time, medication orders and management, vital sign assessments/reviewing monitor data, ordering and reviewing lab tests, ordering and interpreting/reviewing x-rays and diagnostic studies, care of the patient and discussion of the patient with the admitting physicians. HemaPrompt Point of Care Internal Pos. & Neg. Controls: Passed Fecal Specimen Occult Blood: Positive Diagnosis Primary Impression: GI bleed Qualified Codes: K92.2 - Gastrointestinal hemorrhage, unspecified Admitting Information Admitting Physician Requests: Admit Vivi March DO Jul 07, 2017 19:48
[2017-07-07 20:01] LABS: AUTOMATED NEUTROPHIL # 7.5 TH/MM3 (1.8-7.7); BASOPHIL % 0.4 % (0.0-2.0); EOSINOPHIL # 0.1 TH/MM3 (0-0.4); EOSINOPHIL % 1.3 % (0.0-4.0); HEMATOCRIT 25.6 % (35.0-46.0); HEMOGLOBIN 7.9 GM/DL (11.6-15.3); LYMPH % 11.4 % (9.0-44.0); LYMPHOCYTE # 1.1 TH/MM3 (1.0-4.8); MEAN CELL VOLUME 87.2 FL (80.0-100.0); MEAN CORPUSCULAR HEMOGLOBIN 26.9 PG (27.0-34.0); MEAN CORPUSCULAR HGB CONC 30.8 % (32.0-36.0); MEAN PLATELET VOLUME 7.6 FL (7.0-11.0); MONO % 12.3 % (0.0-8.0); MONOCYTE # 1.2 TH/MM3 (0-0.9); NEUT % 74.6 % (16.0-70.0); PLATELET COUNT 413 TH/MM3 (150-450); RED BLOOD COUNT 2.93 MIL/MM3 (4.00-5.30); RED CELL DISTRIBUTION WIDTH 17.4 % (11.6-17.2); WHITE BLOOD COUNT 9.9 TH/MM3 (4.0-11.0)
[2017-07-07 20:11] LABS: CHLORIDE 96 MEQ/L (98-107); SODIUM (NA) 138 MEQ/L (136-145)
[2017-07-07 20:16] LABS: ALBUMIN 3.5 GM/DL (3.4-5.0); BICARBONATE 33.7 MEQ/L (21.0-32.0); CALCIUM 9.7 MG/DL (8.5-10.1); GLUCOSE,RANDOM 123 MG/DL (74-106)
[2017-07-07 20:17] LABS: BLOOD UREA NITROGEN 86 MG/DL (7-18); INTERNATIONAL NORMALIZED RATIO 1.2 RATIO; PROTHROMBIN TIME - PATIENT 12.4 SEC (9.8-11.6)
[2017-07-07 20:19] LABS: ALT (GPT) 17 U/L (10-53)
[2017-07-07 20:20] LABS: AST (GOT) 18 U/L (15-37); GLOMERULAR FILTRATION RATE 15 ML/MIN (>89)
[2017-07-07 20:21] LABS: TOTAL BILIRUBIN ADULT 0.4 MG/DL (0.2-1.0); TOTAL PROTEIN 7.4 GM/DL (6.4-8.2)
[2017-07-07 20:22] LABS: ALKALINE PHOSPHATASE 111 U/L (45-117)
--- NOTE | 2017-07-07 20:33 | RADRPT ---
EXAM DATE/TIME: 07/07/2017 20:02 [facility] COMPARISON: No previous studies available for comparison. INDICATIONS : Cough and short of breath. MEDICAL HISTORY : Hypertension. Kidney cancer. SURGICAL HISTORY : None. ENCOUNTER: Initial ACUITY: 1 day PAIN SCORE: 0/10 LOCATION: Bilateral chest FINDINGS: Trace atelectasis and very small effusion seen left lung base. Right lung clear. No pneumothorax. Mild cardiomegaly is stable. CONCLUSION: Mild atelectasis and small effusion of the left lung base. Mild compensated cardiomegaly unchanged. Jcarlos Cartwright MD on July 07, 2017 at 20:30 Board Certified Radiologist. This report was verified electronically.
[2017-07-07] MEDS: PANTOPRAZOLE INJ 80 MG in SODIUM CHLORIDE 0.9% INJ 100 ML IV SCH (20:37)
--- NOTE | 2017-07-07 20:39 | RADRPT ---
EXAM DATE/TIME: 07/07/2017 20:04 [facility] COMPARISON: Report only CT ABDOMEN & PELVIS W/O CONTRAST, June 28, 2011, 10:34. INDICATIONS : Right lower quadrant pain. Dark stool with positive hemaprompt. ORAL CONTRAST: No oral contrast ingested. RADIATION DOSE: 16.15 CTDIvol (mGy) MEDICAL HISTORY : Renal cell carcinoma. Gastroesophageal reflux disease. Pancreatitis.Hypertension. Congestive heart f ailure. SURGICAL HISTORY : Colon resection. Appendectomy.Cholecystectomy.Hysterectomy. Right nephrectomy. ENCOUNTER: Initial ACUITY: 1 week PAIN SCALE: 5/10 LOCATION: Right lower quadrant TECHNIQUE: Volumetric scanning of the abdomen and pelvis was performed. Using automated exposure control and ad justment of the mA and/or kV according to patient size, radiation dose was kept as low as reasonably achievable to obtain optimal diagnostic quality images. DICOM format image data is available electro nically for review and comparison. FINDINGS: LOWER LUNGS: There is a small pleural effusion in the visualized left lung base. LIVER: Intrahepatic lipoma measuring 16 mm by report unchanged. No acute hepatic abnormality demonstrated. P revious cholecystectomy. SPLEEN: Normal size without lesion. PANCREAS: Within normal limits. KIDNEYS: Previous right nephrectomy. Scattered masses of the left kidney measuring up to 2.4 cm in size that c annot be clearly characterized as cysts. There is a benign-appearing 3.3 cm cyst of the lower pole. ADRENAL GLANDS: Within normal limits. VASCULAR: There is no aortic aneurysm. BOWEL/MESENTERY: Diffuse wall thickening of the rectum and sigmoid colon. No high-grade inflammatory changes are seen. There is diverticulosis of the left side of the colon. No obstruction. No well-defined/measurable ma ss. Patient has had previous right hemicolectomy. The anastomosis is patent. ABDOMINAL WALL: Within normal limits. RETROPERITONEUM: There is no lymphadenopathy. BLADDER: No wall thickening or mass. REPRODUCTIVE: Within normal limits. INGUINAL: There is no lymphadenopathy or hernia. MUSCULOSKELETAL: No acute bony abnormality demonstrated. CONCLUSION: 1. Diverticulosis of the colon. There is diffuse wall thickening of the sigmoid colon and rectum, non specific but possibly chronic diverticular changes or a low-grade colitis. No high-grade inflammatory changes are demonstrated. There is no obstruction. 2. Multiple left renal lesions and some cannot be convincingly characterized as cysts. By report, at least some of these are new. It would probably be prudent to do an MRI of the abdomen with and withou t contrast on a nonemergent basis. Previous right nephrectomy changes without recurrent mass. 3. Benign intrahepatic lipoma by report unchanged. 4. Small, nonspecific pleural effusion of the visualized left lung base. There is panchamber enlargem ent of the heart. Jcarlos Cartwright MD on July 07, 2017 at 20:31 Board Certified Radiologist. This report was verified electronically.
[2017-07-07 20:54] LABS: TROPONIN I 0.02 NG/ML (0.02-0.05)
[2017-07-07] MEDS ORDERED: SODIUM CHLOR 0.9% 250 ML INJ 250 ML IV ONE (21:30)
[2017-07-07 21:32] LABS: BILIRUBIN, URINE NEG (NEG); BLOOD, URINE NEG (NEG); GLUCOSE,URINE NEG (NEG); KETONE, URINE NEG (NEG); NITRITE,URINE NEG (NEG); PH, URINE 5.5 (5.0-8.5); URINE LEUKOCYTE ESTERASE SMALL (NEG)
[2017-07-07] MEDS ORDERED: FUROSEMIDE 20 MG/2 ML VIAL IV PUSH PRN (21:45)
[2017-07-07] MEDS ORDERED: NALOXONE HCL 0.4 MG/ML AMP IV PUSH PRN (21:45)
[2017-07-07] MEDS ORDERED: POTASSIUM CHLORIDE 20 MEQ CONTROLLED RELEASE TAB PO ONE (21:45)
[2017-07-07] MEDS ORDERED: SODIUM CHLORIDE 0.9% FLUSH 10 ML FLUSH IV FLUSH PRN (21:45)
[2017-07-07 21:48] LABS: URINE COLOR YELLOW (YELLW/STRAW)
[2017-07-07 21:49] LABS: BACTERIA, URINE OCC /hpf; SQUAMOUS EPITHELIAL CELL URINE 0-5 /hpf (0-5); WBC, URINE 15-19 /hpf (0-5); WHITE BLOOD CELL CLUMPS FEW
[2017-07-08] VITALS (14 sets, daily range): BP systolic 124–138; BP diastolic 60–88; PULSE 87–119; RESP 16–26; TEMP 97.4–98.6; O2SAT 92–99
[2017-07-08 02:27] LABS: TROPONIN I 0.03 NG/ML (0.02-0.05)
[2017-07-08] MEDS: PANTOPRAZOLE INJ 80 MG in SODIUM CHLORIDE 0.9% INJ 100 ML IV SCH ×2 (06:12→15:22)
[2017-07-08 06:39] LABS: AUTOMATED NEUTROPHIL # 6.7 TH/MM3 (1.8-7.7); BASOPHIL # 0.1 TH/MM3 (0-0.2); BASOPHIL % 1.2 % (0.0-2.0); EOSINOPHIL # 0.1 TH/MM3 (0-0.4); EOSINOPHIL % 1.3 % (0.0-4.0); HEMATOCRIT 25.5 % (35.0-46.0); LYMPH % 9.5 % (9.0-44.0); LYMPHOCYTE # 0.8 TH/MM3 (1.0-4.8); MEAN CELL VOLUME 86.2 FL (80.0-100.0); MEAN CORPUSCULAR HGB CONC 31.3 % (32.0-36.0); MEAN PLATELET VOLUME 8.2 FL (7.0-11.0); MONOCYTE # 1.2 TH/MM3 (0-0.9); PLATELET COUNT 257 TH/MM3 (150-450); RED BLOOD COUNT 2.96 MIL/MM3 (4.00-5.30); RED CELL DISTRIBUTION WIDTH 16.7 % (11.6-17.2); WHITE BLOOD COUNT 8.9 TH/MM3 (4.0-11.0)
[2017-07-08 06:49] LABS: CALCIUM 9.2 MG/DL (8.5-10.1)
[2017-07-08 06:50] LABS: BICARBONATE 34.2 MEQ/L (21.0-32.0)
[2017-07-08 06:53] LABS: CREATININE 2.9 MG/DL (0.50-1.00)
[2017-07-08 08:42] LABS: TROPONIN I 0.03 NG/ML (0.02-0.05)
[2017-07-08] MEDS: SODIUM CHLORIDE 0.9% FLUSH 10 ML FLUSH IV FLUSH SCH ×2 (09:00→20:14)
--- NOTE | 2017-07-08 09:24 | PD.PROCEDR ---
GI Procedure PROCEDURE PERFORMED EGD with biopsy INDICATION FOR PROCEDURE Anemia black stool PROCEDURE: The procedure, risks and benefits were discussed with Ms. Perez and informed consent was obtained. Anesthesia sedated her with Diprivan. She was placed in the left lateral decubitus position. EGD: The Pentax videoscope was introduced through the oropharynx and advanced to the second portion of the duodenum under direct visualization. Retroflexion was performed in the stomach. FINDINGS: There was prominent ampulla possible polyp superficial biopsy was done Few polyps in the stomach and the duodenum no biopsy was done because the patient was as on Eliquis No sign of active bleeding or source of bleed ESTIMATED BLOOD LOSS: None SPECIMENS REMOVED: Ampulla COMPLICATIONS: None IMPRESSION: Prominent ampulla, simple adenoma Scattered polyps in the stomach and duodenum No active bleeding The anemia could be related to chronic disease but also it could be from a lesion in the colon especially with the abnormal CT scan PLAN: Await biopsy results May feed patient as tolerated Hold Eliquis Colonoscopy in few days Briana Hoskins MD Jul 08, 2017 09:24
--- NOTE | 2017-07-08 09:57 | MB ---
cc: SOCORRO PAIZ M.D. DATE OF CONSULTATION 07/08/2017 DATE OF [address] Camacho REASON FOR REFERRAL Black stool. Thank you for the consultation for this 87-year-old lady who has multiple medical problems including end-stage renal disease starting dialysis soon according to her, congestive heart failure on Eliquis. The patient had dark stool for about 10 days. The patient was told by her ED doctor to go to the ER because of anemia. She has no other complaint except for a runny nose and some coughing. Apparently she had anemia before. She had colonoscopy five years ago. She had an upper endoscopy in August by Dr. Vitale and she also had a capsule endoscopy which she was told was unremarkable. She did not want to have a colonoscopy at that time according to her. She denied bright red blood per rectum. She had black stool and no abdominal pain. PAST MEDICAL HISTORY Significant for: 1. Rheumatoid arthritis 2. Kidney disease 3. Nephrectomy on the right side 4. Hypercholesterolemia 5. Atrial fibrillation on anticoagulation 6. Coronary artery disease 7. Congestive heart failure 8. Reflux symptoms 9. Glaucoma 10. Hiatal hernia 11. Hypertension PAST SURGICAL HISTORY Significant for: 1. Colon resection, questionable benign tumor 2. Appendectomy 3. Coronary artery disease 4. Cholecystectomy 5. Parathyroid surgery 6. Eye surgery 7. Hysterectomy 8. Nephrectomy 9. Bilateral lumpectomy SOCIAL HISTORY No tobacco, drug or alcohol. ALLERGIES MULTIPLE ALLERGIES REVIEW IN THE CHART. MEDICATIONS Reviewed in the chart. REVIEW OF SYSTEMS All 12-points negative except HPI. PHYSICAL EXAMINATION Alert and oriented in no acute distress. VITAL SIGNS; Stable. HEENT: Pupils are round and reactive to light. NECK: Supple. CHEST: Clear to auscultation and percussion. CARDIAC: Regular rate and rhythm without murmur or gallop. ABDOMEN: Soft, nondistended. Positive bowel sounds. EXTREMITIES: No edema, clubbing or cyanosis. NEUROLOGIC: Intact. PSYCHOLOGIC: Appropriate. LABORATORY DATA White count 8.9, hemoglobin 8.0, platelet 257. Chemistry was normal except elevated creatinine of 2.9, INR 1.2. CT scan, diverticulosis in the colon. Questionable chronic diverticular disease. No obstruction. Cyst in the kidney, he has a past nephrectomy. ASSESSMENT/PLAN An 87-year-old lady with anemia, black stool could be GI bleed. The patient agreeable to have an upper endoscopy. She would like to defer the colonoscopy. I discussed with her that there might be a lesion missing and the patient would like to start with endoscopy, so we will plan on doing that today. If this is negative, she might consider having colonoscopy. MD SHANNAN Vera/DUY /9:09 AM /9:44 AM
--- NOTE | 2017-07-08 12:59 | HHI.HP ---
[facility] Primary Care Physician Non-Staff Admission Diagnosis GI bleed Diagnoses: Chief Complaint: dark stool Travel History International Travel<30 Days: No Contact w/Intl Traveler <30 Da: No Traveled to Known Affected Are: No History of Present Illness 87yo F with PMH of Afib on eliquis, CHF, ESRD not on HD yet, RA presents to the ED with c/o dark stool for 1.5 weeks. Pt said she called her meat and seafood clerk Dr. Waite's office and was told to come to the ED. Pt has also been coughing for a few days with rhinorrhea. Denies any fever, chest pain, sob, n/v, abdominal pain, focal weakness or numbness. Pt states she does feel more sob with taking a few steps which is new for her. Dr. Hernandez is her machine wedger. Seen by Dr Hoskins and went for EGD. Patient was seen after EGD with some cough. Plan to also have colonoscopy done. Review of Systems Except as stated in HPI: all other systems reviewed are Neg Past Family Social History Past Medical History Afib on eliquis, DM2, CHF, ESRD not on HD yet, RA , melanoma x2 , GERD, kidney ca with right nephrectomy Past Surgical History R nephrectomy Colon resection, bobby, appy, cardiac cath, hysterectomy, Sammie lumpectomy, fistula right arm, left eye retinal , parathyroidectomy x 2 Reported Medications Last Impressions Chest X-Ray 07/07/17 0000 Signed Impressions: Service Date/Time: June 20:02 - CONCLUSION: Mild atelectasis and small effusion of the left lung base. Mild compensated cardiomegaly unchanged. Jcarlos Cartwright MD Abdomen/Pelvis CT 07/07/17 0000 Signed Impressions: Service Date/Time: June 20:04 - CONCLUSION: 1. Diverticulosis of the colon. There is diffuse wall thickening of the sigmoid colon and rectum, nonspecific but possibly chronic diverticular changes or a low-grade colitis. No high-grade inflammatory changes are demonstrated. There is no obstruction. 2. Multiple left renal lesions and some cannot be convincingly characterized as cysts. By report, at least some of these are new. It would probably be prudent to do an MRI of the abdomen with and without contrast on a nonemergent basis. Previous right nephrectomy changes without recurrent mass. 3. Benign intrahepatic lipoma by report unchanged. 4. Small, nonspecific pleural effusion of the visualized left lung base. There is panchamber enlargement of the heart. Jcarlos Cartwright MD Allergies: Coded Allergies: adhesive (Verified Allergy, Severe, skin breakdown, 07/07/17) PATIENT STATES NO ISSUES WITH TAPES/ADHESIVES diltiazem (Verified Allergy, Severe, 07/07/17) SOB, GI UPSET liothyronine (Verified Allergy, Severe, hypertension, 07/07/17) liotrix (Verified Allergy, Severe, hypertension, 07/07/17) nitrofurantoin (Verified Allergy, Severe, B/P ELEVATED, 07/07/17) Family History Reviewed and no significant family history Social History No EtOH use, tobacco or illicit drug use Physical Exam Vital Signs Vital Signs Date Time Temp Pulse Resp B/P (MAP) Pulse Ox O2 Delivery O2 Flow Rate FiO2 07/08/17 11:26 18 07/08/17 11:23 105 18 134/81 (98) 95 Nasal Cannula 2.00 07/08/17 10:00 98.2 64 16 145/62 (89) 98 07/08/17 09:30 98.0 62 16 96/49 (65) 97 07/08/17 07:11 97.4 95 16 127/60 (82) 99 Nasal Cannula 2.00 07/08/17 05:30 98.2 87 18 132/62 (85) 99 Nasal Cannula 2.00 07/08/17 03:30 98.5 89 18 128/88 (101) 99 Nasal Cannula 2.00 07/08/17 02:28 98.4 87 18 138/70 (92) 97 Nasal Cannula 2.00 07/08/17 01:30 98.0 93 18 136/69 96 07/08/17 01:13 98.2 94 18 130/74 (92) 95 Room Air 07/08/17 00:30 98.2 94 18 134/74 95 07/07/17 23:30 98.1 94 18 130/74 97 07/07/17 23:15 98.0 95 18 132/60 96 07/07/17 22:56 97.8 95 18 132/65 96 07/07/17 22:35 97.8 96 18 116/58 (77) 96 Room Air 07/07/17 22:35 97.8 96 18 116/58 96 07/07/17 21:32 95 18 102/66 (78) 97 Room Air 07/07/17 20:30 97.8 98 18 115/75 (88) 98 Room Air 07/07/17 16:30 98.1 101 16 120/56 (77) 98 Physical Exam GENERAL: This is a well-nourished, well-developed patient, in no apparent distress. SKIN: No rashes, ecchymoses or lesions. Cool and dry. HEAD: Atraumatic. Normocephalic. No temporal or scalp tenderness. EYES: Pupils equal round and reactive. Extraocular motions intact. No scleral icterus. No injection or drainage. ENT: Nose without bleeding, purulent drainage or septal hematoma. Throat without erythema, tonsillar hypertrophy or exudate. Uvula midline. Airway patent. NECK: Trachea midline. No JVD or lymphadenopathy. Supple, nontender, no meningeal signs. CARDIOVASCULAR: Regular rate and rhythm without murmurs, gallops, or rubs. RESPIRATORY: Clear to auscultation. Breath sounds equal bilaterally. No wheezes , rales, or rhonchi. GASTROINTESTINAL: Abdomen soft, non-tender, nondistended. No hepato-splenomegaly , or palpable masses. No guarding. MUSCULOSKELETAL: Extremities without clubbing, cyanosis, or edema. No joint tenderness, effusion, or edema noted. No calf tenderness. Negative Homans sign bilaterally. NEUROLOGICAL: Awake and alert. Cranial nerves II through XII intact. Motor and sensory grossly within normal limits. Five out of 5 muscle strength in all muscle groups. Normal speech. Laboratory Laboratory Tests Test 07/07/17 19:50 07/07/17 21:26 07/08/17 01:45 07/08/17 06:13 White Blood Count 9.9 8.9 Red Blood Count 2.93 2.96 Hemoglobin 7.9 8.0 Hematocrit 25.6 25.5 Mean Corpuscular Volume 87.2 86.2 Mean Corpuscular Hemoglobin 26.9 27.0 Mean Corpuscular Hemoglobin Concent 30.8 31.3 Red Cell Distribution Width 17.4 16.7 Platelet Count 413 257 Mean Platelet Volume 7.6 8.2 Neutrophils (%) (Auto) 74.6 75.0 Lymphocytes (%) (Auto) 11.4 9.5 Monocytes (%) (Auto) 12.3 13.0 Eosinophils (%) (Auto) 1.3 1.3 Basophils (%) (Auto) 0.4 1.2 Neutrophils # (Auto) 7.5 6.7 Lymphocytes # (Auto) 1.1 0.8 Monocytes # (Auto) 1.2 1.2 Eosinophils # (Auto) 0.1 0.1 Basophils # (Auto) 0.0 0.1 CBC Comment DIFF FINAL DIFF FINAL Differential Comment Prothrombin Time 12.4 Prothromb Time International Ratio 1.2 Activated Partial Thromboplast Time 26.8 Blood Urea Nitrogen 86 80 Creatinine 2.90 2.90 Random Glucose 123 108 Total Protein 7.4 Albumin 3.5 Calcium Level 9.7 9.2 Alkaline Phosphatase 111 Aspartate Amino Transf (AST/SGOT) 18 Alanine Aminotransferase (ALT/SGPT) 17 Total Bilirubin 0.4 Sodium Level 138 141 Potassium Level 3.2 3.2 Chloride Level 96 99 Carbon Dioxide Level 33.7 34.2 Anion Gap 8 8 Estimat Glomerular Filtration Rate 15 15 Troponin I 0.02 0.03 B-Type Natriuretic Peptide 754 Urine Color YELLOW Urine Turbidity CLEAR Urine pH 5.5 Urine Specific Harwood 1.012 Urine Protein TRACE Urine Glucose (UA) NEG Urine Ketones NEG Urine Occult Blood NEG Urine Nitrite NEG Urine Bilirubin NEG Urine Leukocyte Esterase SMALL Urine WBC 15-19 Urine WBC Clumps FEW Urine Squamous Epithelial Cells 0-5 Urine Bacteria OCC Microscopic Urinalysis Comment CULTURE INDICATED Total Creatine Kinase 43 Test 07/08/17 08:17 Total Creatine Kinase 58 Troponin I 0.03 Date/Time Source Procedure Growth Status 07/07/17 21:26 Urine Clean Catch Urine Culture Pending Received Result Diagram: 07/08/1713 07/08/17612 Imaging Reported Meds & Active Scripts Active Reported Eliquis (Apixaban) 2.5 Mg Tab 2.5 Mg PO BID Uloric (Febuxostat) 40 Mg Tab 40 Tab PO DAILY Paricalcitol 1 Mcg Cap 1 Mcg PO 3XWEEK Bumetanide 1 Mg Tab 1 Mg PO BID Metolazone 10 Mg Tab 10 Mg PO QOD Hydralazine HCl 10 Mg Tablet 20 Mg PO TID Procrit Inj (Epoetin Marcelo) 20,000 Unit/Ml Inj 20,000 Units SQ EVERY 2 WEEKS Biotin 1,000 Mcg Tab 1,000 Mg PO DAILY Timoptic Opth Drops (Timolol Opth Drops) 0.5 % Soln 1 Drop EACH EYE BID Preservision Areds (Multiple Vitamins W/ Minerals) 1 Tab 1 Tab PO DAILY Vitamin B Complex (B-Complex Vitamins) 1 Tab 1 Tab PO DAILY Lutein 20 Mg Cap 20 Mg PO DAILY Citracal Maximum (Calcium Citrate-Vitamin D) 315-250 Mg-Unit Tab 2 Tab PO BID Nexium (Esomeprazole DR) 40 Mg Capdr 40 Mg PO DAILY Leflunomide 20 Mg Tab 20 Mg PO FR Take 1 tablet (20mg) on Tuesday,Tuesday and Tuesday Tradjenta (Linagliptin) 5 Mg Tab 5 Mg PO DAILY Levothyroxine (Levothyroxine Sodium) 100 Mcg Tab 100 Mcg PO DAILY Metoprolol Succinate ER 24 HR (Metoprolol Succinate) 100 Mg Tab 100 Mg PO BID Losartan (Losartan Potassium) 100 Mg Tab 100 Mg PO HS Norvasc (Amlodipine Besylate) 5 Mg Tab 5 Mg PO BID Crestor (Rosuvastatin Calcium) 10 Mg Tab 10 Mg PO HS Caprini VTE Risk Assessment Caprini VTE Risk Assessment: Mod/High Risk (score >= 2) Caprini Risk Assessment Model Point Value = 1 Point Value = 2 Point Value = 3 Point Value = 5 Age 41-60 Minor surgery BMI > 25 kg/m2 Swollen legs Varicose veins or History of unexplained or recurrent spontaneous Oral contraceptives or hormone replacement Sepsis (< 1 month) Serious lung disease, including pneumonia (< 1 month) Abnormal pulmonary function Acute myocardial infarction Congestive heart failure (< 1 month) History of inflammatory bowel disease Medical patient at bed rest Age 61-74 Arthroscopic surgery Major open surgery (> 45 min) Laparoscopic surgery (> 45 min) Malignancy Confined to bed (> 72 hours) Immobilizing plaster cast Central venous access Age >= 75 History of VTE Family history of VTE Factor V Leiden Prothrombin [id number] Lupus anticoagulant Anticardiolipin antibodies Elevated serum homocysteine Heparin-induced thrombocytopenia Other congenital or acquired thrombophilia Stroke (< 1 month) Elective arthroplasty Hip, pelvis, or leg fracture Acute spinal cord injury (< 1 month) Prophylaxis Regimen Total Risk Factor Score Risk Level Prophylaxis Regimen 0-1 Low Early ambulation 2 Moderate Order ONE of the following: *Sequential Compression Device (SCD) *Heparin 5000 units SQ BID 3-4 Higher Order ONE of the following medications: *Heparin 5000 units SQ TID *Enoxaparin/Lovenox 40 mg SQ daily (WT < 150 kg, CrCl > 30 mL/min) *Enoxaparin/Lovenox 30 mg SQ daily (WT < 150 kg, CrCl > 10-29 mL/min) *Enoxaparin/Lovenox 30 mg SQ BID (WT < 150 kg, CrCl > 30 mL/min) AND/OR *Sequential Compression Device (SCD) 5 or more Highest Order ONE of the following medications: *Heparin 5000 units SQ TID (Preferred with Epidurals) *Enoxaparin/Lovenox 40 mg SQ daily (WT < 150 kg, CrCl > 30 mL/min) *Enoxaparin/Lovenox 30 mg SQ daily (WT < 150 kg, CrCl > 10-29 mL/min) *Enoxaparin/Lovenox 30 mg SQ BID (WT < 150 kg, CrCl > 30 mL/min) AND *Sequential Compression Device (SCD) Assessment and Plan Assessment and Plan GI bleed H/H stable , monitor and transfuse if HGB, 7 or if symptomatic S/P EGD with biopsy Prominent ampulla, simple adenoma Scattered polyps in the stomach and duodenum No active bleeding The anemia could be related to chronic disease but also it could be from a lesion in the colon especially with the abnormal CT scan per GI Hold Eliquis Plan for colonoscopy in few days per GI Hypokalemia: Replace , monitor and replace as need Chronic medical problems appears stable, restart home meds as appropriate DVT ppx scd.teds no chemical ppx as with gib Discussed Condition With Patient, nurse, ED physician, Dr Lima GI Physician Certification 2 Midnight Certification Type: Admission for Inpatient Services Order for Inpatient Services The services are ordered in accordance with Medicare regulations or non- Medicare payer requirements, as applicable. In the case of services not specified as inpatient-only, they are appropriately provided as inpatient services in accordance with the 2-midnight benchmark. Estimated LOS (days): 3 days is the estimated time the patient will need to remain in the hospital, assuming treatment plan goals are met and no additional complications. Post-Hospital Plan: Home Tiffanie Camacho MD Jul 08, 2017 12:59
[2017-07-08] MEDS ORDERED: LEFLUNOMIDE 20 MG TAB PO SCH (15:00)
[2017-07-08] MEDS: VITAMIN B COMPLEX/VIT C TAB PO SCH (15:24)
--- NOTE | 2017-07-08 16:44 | EKG ---
Date Performed: 07/08/2017 Time Performed: 01:51:15 PTAGE: 87 years EKG: ATRIAL FIBRILLATION WITH RAPID VENTRICULAR RESPONSE BORDERLINE LEFT AXIS DEVIATION NONSPECI FIC ST & T-WAVE ABNORMALITY ABNORMAL RHYTHM ECG WARNING: DATA QUALITY MAY AFFECT INTERPRETATION PREVIOUS TRACING : 07/07/2017 20.22 Since previous tracing, no significant change noted DOCTOR: Howard Hale Interpretating Date/Time 07/08/2017 16:44:07
--- NOTE | 2017-07-08 16:44 | EKG ---
Date Performed: 07/07/2017 Time Performed: 20:22:02 PTAGE: 87 years EKG: ATRIAL FIBRILLATION LOW QRS VOLTAGE IN EXTREMITY LEADS ST DEVIATION AND MODERATE T-WAVE ABN ORMALITY, CONSIDER LATERAL ISCHEMIA ABNORMAL ECG PREVIOUS TRACING : 05/04/2017 10.58 Since previous tracing, no significant change noted DOCTOR: Howard Hale Interpretating Date/Time 07/08/2017 16:43:49
--- NOTE | 2017-07-08 16:45 | EKG ---
Date Performed: 07/08/2017 Time Performed: 08:10:04 PTAGE: 87 years EKG: ATRIAL FIBRILLATION WITH RAPID VENTRICULAR RESPONSE LOW QRS VOLTAGE IN EXTREMITY LEADS ST D EVIATION AND MODERATE T-WAVE ABNORMALITY, CONSIDER LATERAL ISCHEMIA ABNORMAL ECG PREVIOUS TRACING : 07/08/2017 01.51 Since previous tracing, no significant change noted DOCTOR: Howard Hale Interpretating Date/Time 07/08/2017 16:44:32
[2017-07-08] MEDS ORDERED: POTASSIUM CHLORIDE 10 MEQ CONTROLLED RELEASE TAB PO ONE (18:00)
[2017-07-08] MEDS: hydrALAZINE HCL 10 MG TAB PO SCH (18:29)
[2017-07-08] MEDS ORDERED: PEG (High)/E-LYTE SOLN 4000 ML BTL PO ONE (18:30)
[2017-07-08] MEDS ORDERED: DEXTROSE 50% IN WATER 50 ML VIAL(D50) IV PUSH PRN (19:30)
[2017-07-08] MEDS ORDERED: GLUCAGON 1 MG/ML VIAL OTHER PRN (19:30)
[2017-07-08] MEDS: METOPROLOL SUCCINATE 50 MG EXTENDED RELEASE TAB PO SCH (20:14)
[2017-07-08] MEDS: BUMETANIDE 1 MG TAB PO SCH (20:14)
[2017-07-08] MEDS: CALCIUM/VITAMIN D 250 MG/125 U TAB PO SCH (20:15)
[2017-07-08] MEDS: amLODIPine BESYLATE 5 MG TAB PO SCH (20:16)
[2017-07-08] MEDS: LOW DOSE INSULIN NOVOLOG SUPPLEMENTAL SCALE SQ SCH (20:46)
[2017-07-08] MEDS ORDERED: ATORVASTATIN 20 MG TAB PO SCH (21:00)
[2017-07-08] MEDS ORDERED: LOSARTAN 50 MG TAB PO SCH (21:00)
[2017-07-08] MEDS: TIMOLOL MALEATE 0.5% OPHT SOLN 5 ML BTL EACH EYE SCH (23:21)
[2017-07-09] VITALS: BP 141/63; PULSE 114; RESP 18; TEMP 96.2; O2SAT 100
[2017-07-09] MEDS ORDERED: CHLORHEXIDINE GLUCONATE 2 % 1 PACK (2 CLOTHS) TOPICAL PRN (03:15)
[2017-07-09] MEDS ORDERED: LACTATED RINGER'S 1000 ML IV PRN (03:15)
[2017-07-09] MEDS ORDERED: POVIDONE IODINE 5% (ANTISEPSIS KIT) 4 APPLICATIONS EACH NARE PRN (03:15)
[2017-07-09 04:00] VITALS: BP 157/67; PULSE 119; RESP 18; TEMP 96.5; O2SAT 96
[2017-07-09] MEDS: PANTOPRAZOLE INJ 80 MG in SODIUM CHLORIDE 0.9% INJ 100 ML IV SCH ×2 (04:13→07:15)
[2017-07-09] MEDS ORDERED: LEVOTHYROXINE SODIUM 100 MCG TAB PO SCH (06:00)
[2017-07-09] MEDS: METOPROLOL SUCCINATE 50 MG EXTENDED RELEASE TAB PO SCH (06:14)
[2017-07-09] MEDS: LOW DOSE INSULIN NOVOLOG SUPPLEMENTAL SCALE SQ SCH ×2 (06:27→12:21)
[2017-07-09 08:00] VITALS: BP 144/98; PULSE 114; RESP 20; TEMP 96.1; O2SAT 99
--- NOTE | 2017-07-09 08:31 | GIPROC ---
[facility] [address] [place] [address], [id number] COLONOSCOPY PROCEDURE REPORT EXAM DATE: 07/09/2017 PATIENT NAME: Collette Perez MR #: [id number] BIRTHDATE: 1930 ENDOSCOPIST: Katelynn Chan MD ORDER #: [id number] CONDENSER OPERATOR: Edith Meyer and Isi Rivera STATUS: inpatient INDICATIONS: The patient is a 87 yr old female here for a colonoscopy due to anemia PROCEDURE PERFORMED: Colonoscopy with biopsy MEDICATIONS: None and Per Anesthesia. PREP QUALITY: good PREP TYPE:Other: ESTIMATED BLOOD LOSS: None CONSENT: The patient understands the risks and benefits of the procedure and understands that these risks include, but are not limited to: sedation, allergic reaction, infection, perforation and/or bleeding. Alternative means of evaluation and treatment include, among others: physical exam, x-rays, and/or surgical intervention. The patient elects to proceed with this endoscopic procedure. medical equipment was checked for proper function. Hand hygiene and appropriate measures for infection prevention was taken. After the risks, benefits and alternatives of the procedure were thoroughly explained, Informed consent was verified, confirmed and timeout was successfully executed by the treatment team. A digital exam revealed external hemorrhoids The Pentax [id number] endoscope was introduced through the anus and advanced to the cecum, which was identified by both the appendix and ileocecal valve. The instrument was then slowly withdrawn as the colon was fully examined. COLON FINDINGS: Surgical changes in ascending colon polyp diminutive descending colon-cold biopsy with complete removal diverticulosis sigmoid,descending internal hemorrhoids grade 2. Retroflexed views revealed internal hemorrhoids and Retroflexed views revealed medium internal hemorrhoids The scope was then completely withdrawn from the patient and the procedure terminated. PROCEDURE WITHDRAWAL TIME:6minutes ADVERSE EVENTS: There were no complications. IMPRESSIONS: 1. Surgical changes in ascending colon polyp diminutive descending colon-cold biopsy with complete removal diverticulosis sigmoid,descending internal hemorrhoids grade 2 2. Retroflexed views revealed internal hemorrhoids 3. Retroflexed views revealed medium internal hemorrhoids 4. Revealed external hemorrhoids RECOMMENDATIONS: 1. Await biopsy results. Biopsy results will not be ready for 7-10 days. If you don't hear from us in two weeks, call our office for results. 2. Benefiber 2 tsp daily 3. Yearly hemoccult 4. High fiber diet 5. Capsule endoscopy op hematology consult advance diet ok to dc home from [facility] in 1-2 days RECALL: Return 5 years Colonoscopy Katelynn Chan MD eSigned: Katelynn Chan MD 07/09/2017 8:31 AM cc: PATIENT NAME: Collette Perez MR#: [id number]
[2017-07-09] MEDS ORDERED: LINAGLIPTIN 5 MG PO SCH ×2 (09:00→14:00)
[2017-07-09] MEDS ORDERED: MULTIVITAMIN-OPHTHALMIC 1 TAB PO SCH (09:00)
[2017-07-09] MEDS ORDERED: NON-FORMULARY DRUG (Biotin 1,000 MG) PO SCH (09:00)
[2017-07-09] MEDS ORDERED: FEBUXOSTAT 40 MG PO SCH ×2 (09:00→14:00)
[2017-07-09] MEDS ORDERED: PANTOPRAZOLE SOD 40 MG DELAYED RELEASE TAB PO SCH (09:00)
[2017-07-09] MEDS ORDERED: METOLAZONE 5 MG TAB PO SCH (09:00)
[2017-07-09] MEDS: VITAMIN B COMPLEX/VIT C TAB PO SCH (09:00)
[2017-07-09] MEDS ORDERED: MULTIVITAMINS/MINERALS THERAPEUTIC TAB PO SCH (09:00)
--- NOTE | 2017-07-09 09:03 | HHI.PR ---
Subjective Remarks The patient is in bed since she is ambulating without any problems. Says she feels much better today. Had a bowel movement today in the morning says no blood in it, however is dark color but not black. No abd pain , n/v/d/c. She did stop coughing. Ate yesterday and today without any problems. No n/v/d/c. Wants to go home today. Says she follows with Dr Waite nephrology as OP who gives her Erythropoietin shots at times and seems to help. She would prefer to see hematology as OP. Objective Vitals Vital Signs Date Time Temp Pulse Resp B/P (MAP) Pulse Ox O2 Delivery O2 Flow Rate FiO2 07/09/17 08:36 98.0 103 16 122/61 (81) 94 07/09/17 08:00 96.1 114 20 144/98 (113) 99 07/09/17 04:00 96.5 119 18 157/67 (97) 96 07/09/17 00:00 96.2 114 18 141/63 (89) 100 07/08/17 22:00 119 07/08/17 20:00 98.6 108 20 135/64 (87) 96 07/08/17 18:00 104 21 138/71 (93) 93 07/08/17 18:00 104 07/08/17 16:15 116 07/08/17 16:00 97.5 116 26 124/64 (84) 92 07/08/17 15:53 07/08/17 15:02 91 18 133/62 (85) 95 Room Air 07/08/17 11:26 18 07/08/17 11:23 105 18 134/81 (98) 95 Nasal Cannula 2.00 07/08/17 10:00 98.2 64 16 145/62 (89) 98 07/08/17 09:30 98.0 62 16 96/49 (65) 97 I/O 07/08/17 07/08/17 07/08/17 07/09/17 07/09/17 07/09/17 07:00 15:00 23:00 07:00 15:00 23:00 Intake Total 850 ml 340 ml 240 ml 122 ml 100 ml Output Total 400 ml 1200 ml Balance 850 ml -60 ml 240 ml -1078 ml 100 ml Intake Oral 240 ml 240 ml IV Total 350 ml 122 ml Packed Cells 400 ml Blood Product IV Normal Saline Flush 100 ml Other 100 ml 100 ml Output Urine Total 400 ml 200 ml Stool Total 1000 ml # Voids 1 1 # Bowel Movements 1 Result Diagram: 07/08/1761207/08/17612 Imaging Last Impressions Chest X-Ray 07/07/17 0000 Signed Impressions: Service Date/Time: June 20:02 - CONCLUSION: Mild atelectasis and small effusion of the left lung base. Mild compensated cardiomegaly unchanged. Jcarlos Cartwright MD Abdomen/Pelvis CT 07/07/17 0000 Signed Impressions: Service Date/Time: June 20:04 - CONCLUSION: 1. Diverticulosis of the colon. There is diffuse wall thickening of the sigmoid colon and rectum, nonspecific but possibly chronic diverticular changes or a low-grade colitis. No high-grade inflammatory changes are demonstrated. There is no obstruction. 2. Multiple left renal lesions and some cannot be convincingly characterized as cysts. By report, at least some of these are new. It would probably be prudent to do an MRI of the abdomen with and without contrast on a nonemergent basis. Previous right nephrectomy changes without recurrent mass. 3. Benign intrahepatic lipoma by report unchanged. 4. Small, nonspecific pleural effusion of the visualized left lung base. There is panchamber enlargement of the heart. Jcarlos Cartwright MD Objective Remarks GENERAL: This is a well-nourished, well-developed patient, in no apparent distress. CARDIOVASCULAR: Regular rate and rhythm without murmurs, gallops, or rubs. RESPIRATORY: Clear to auscultation. Breath sounds equal bilaterally. No wheezes , rales, or rhonchi. GASTROINTESTINAL: Abdomen soft, non-tender, nondistended. No hepato-splenomegaly , or palpable masses. No guarding. MUSCULOSKELETAL: Extremities without clubbing, cyanosis, or edema. No joint tenderness, effusion, or edema noted. No calf tenderness. Negative Homans sign bilaterally. NEUROLOGICAL: Awake and alert. Cranial nerves II through XII intact. Motor and sensory grossly within normal limits. Five out of 5 muscle strength in all muscle groups. Normal speech. A/P Assessment and Plan Anemia is multifactorial patient with hemorrhoids, also anemia of chronic renal disease, patient with ESRD GI bleed H/H stable, at baseline. S/P EGD with biopsy Prominent ampulla, simple adenoma Scattered polyps in the stomach and duodenum No active bleeding The anemia could be related to chronic disease but also it could be from a lesion in the colon especially with the abnormal CT scan per GI Hold Eliquis S/p colonoscopy with internal and external hemorrhoids. Start benefiber. To follow up as OP with GI. Patient wants to go home and would like to follow up as OP with hem/onc Patient also follows with Dr Waite nephrology as OP and gets erythropoietin shots. Also follows with Dr Cuevas vasc surgeon as plan to start HD. Hypokalemia: Replace , monitor and replace as need Chronic medical problems appears stable, restart home meds as appropriate DVT ppx scd.teds Discussed Condition With Patient, nurse DC plan discharge today, to follow up as OP with PCP and consultants. Discharge Planning DC home with home health in stable condition to follow up as OP with PCP and consultants. To follow up with Dr Messer oncology as OP. Discussed with Dr Gui Elizondo per med reconciliations Activity ad rosette as tolerated Diet healthy heart, diabetic diet Discharge time: > 30 min Tiffanie Camacho MD Jul 09, 2017 09:03
[2017-07-09] MEDS: TIMOLOL MALEATE 0.5% OPHT SOLN 5 ML BTL EACH EYE SCH (09:58)
[2017-07-09] MEDS: SODIUM CHLORIDE 0.9% FLUSH 10 ML FLUSH IV FLUSH SCH (09:59)
[2017-07-09] MEDS: hydrALAZINE HCL 10 MG TAB PO SCH ×2 (10:00→12:21)
[2017-07-09] MEDS: amLODIPine BESYLATE 5 MG TAB PO SCH (10:01)
[2017-07-09] MEDS: BUMETANIDE 1 MG TAB PO SCH (10:01)
[2017-07-09] MEDS: CALCIUM/VITAMIN D 250 MG/125 U TAB PO SCH (10:02)
[2017-07-09] MEDS ORDERED: WHEA1POW9 PO (10:56)
--- NOTE | 2017-07-09 10:57 | HHI.DS ---
Discharge Summary Admission Date Jul 07, 2017 at 21:47 Discharge Date: Jul 09, 2017 Admitting Diagnosis GI bleed (1) HTN (hypertension) ICD Code: I10 - HTN (hypertension) Status: Acute (2) Afib ICD Code: I48.91 - Afib Status: Acute (3) SOB (shortness of breath) ICD Code: R06.02 - SOB (shortness of breath) Status: Acute (4) Chest pain ICD Code: R07.9 - Chest pain Status: Acute (5) DM (diabetes mellitus screen) ICD Code: Z13.1 - DM (diabetes mellitus screen) Status: Acute (6) Anemia ICD Code: D64.9 - Anemia, unspecified Status: Acute (7) CKD (chronic kidney disease) ICD Code: N18.9 - CKD (chronic kidney disease) Status: Acute (8) Acute exacerbation of CHF (congestive heart failure) ICD Code: I50.9 - Heart failure, unspecified Status: Acute (9) GI bleed ICD Code: K92.2 - Gastrointestinal hemorrhage, unspecified Status: Acute Procedures EGD/colonoscopy Brief History - From Admission 87yo F with PMH of Afib on eliquis, CHF, ESRD not on HD yet, RA presents to the ED with c/o dark stool for 1.5 weeks. Pt said she called her pr intern Dr. Waite's office and was told to come to the ED. Pt has also been coughing for a few days with rhinorrhea. Denies any fever, chest pain, sob, n/v, abdominal pain, focal weakness or numbness. Pt states she does feel more sob with taking a few steps which is new for her. Dr. Hernandez is her hazardous substances scientist. Seen by Dr Hoskins and went for EGD. Patient was seen after EGD with some cough. Plan to also have colonoscopy done. CBC/BMP: 07/08/17 0613 07/08/17 0613 Significant Findings Laboratory Tests Test 07/07/17 19:50 07/07/17 21:26 07/08/17 01:45 07/08/17 06:13 Red Blood Count 2.93 MIL/MM3 (4.00-5.30) 2.96 MIL/MM3 (4.00-5.30) Hemoglobin 7.9 GM/DL (11.6-15.3) 8.0 GM/DL (11.6-15.3) Hematocrit 25.6 % (35.0-46.0) 25.5 % (35.0-46.0) Mean Corpuscular Hemoglobin 26.9 PG (27.0-34.0) Mean Corpuscular Hemoglobin Concent 30.8 % (32.0-36.0) 31.3 % (32.0-36.0) Red Cell Distribution Width 17.4 % (11.6-17.2) Neutrophils (%) (Auto) 74.6 % (16.0-70.0) 75.0 % (16.0-70.0) Monocytes (%) (Auto) 12.3 % (0.0-8.0) 13.0 % (0.0-8.0) Monocytes # (Auto) 1.2 TH/MM3 (0-0.9) 1.2 TH/MM3 (0-0.9) Prothrombin Time 12.4 SEC (9.8-11.6) Blood Urea Nitrogen 86 MG/DL (7-18) 80 MG/DL (7-18) Creatinine 2.90 MG/DL (0.50-1.00) 2.90 MG/DL (0.50-1.00) Random Glucose 123 MG/DL (74-106) 108 MG/DL (74-106) Potassium Level 3.2 MEQ/L (3.5-5.1) 3.2 MEQ/L (3.5-5.1) Chloride Level 96 MEQ/L (98-107) Carbon Dioxide Level 33.7 MEQ/L (21.0-32.0) 34.2 MEQ/L (21.0-32.0) Estimat Glomerular Filtration Rate 15 ML/MIN (>89) 15 ML/MIN (>89) B-Type Natriuretic Peptide 754 PG/ML (0-100) Urine Leukocyte Esterase SMALL (NEG) Urine WBC 15-19 /hpf (0-5) Urine WBC Clumps FEW (NONE) Urine Bacteria OCC /hpf (NONE) Lymphocytes # (Auto) 0.8 TH/MM3 (1.0-4.8) Test 07/08/17 08:17 Imaging Last Impressions Chest X-Ray 07/07/17 0000 Signed Impressions: Service Date/Time: June 20:02 - CONCLUSION: Mild atelectasis and small effusion of the left lung base. Mild compensated cardiomegaly unchanged. Jcarlos Cartwright MD Abdomen/Pelvis CT 07/07/17 0000 Signed Impressions: Service Date/Time: June 20:04 - CONCLUSION: 1. Diverticulosis of the colon. There is diffuse wall thickening of the sigmoid colon and rectum, nonspecific but possibly chronic diverticular changes or a low-grade colitis. No high-grade inflammatory changes are demonstrated. There is no obstruction. 2. Multiple left renal lesions and some cannot be convincingly characterized as cysts. By report, at least some of these are new. It would probably be prudent to do an MRI of the abdomen with and without contrast on a nonemergent basis. Previous right nephrectomy changes without recurrent mass. 3. Benign intrahepatic lipoma by report unchanged. 4. Small, nonspecific pleural effusion of the visualized left lung base. There is panchamber enlargement of the heart. Jcarlos Cartwright MD PE at Discharge GENERAL: This is a well-nourished, well-developed patient, in no apparent distress. CARDIOVASCULAR: Regular rate and rhythm without murmurs, gallops, or rubs. RESPIRATORY: Clear to auscultation. Breath sounds equal bilaterally. No wheezes , rales, or rhonchi. GASTROINTESTINAL: Abdomen soft, non-tender, nondistended. No hepato-splenomegaly , or palpable masses. No guarding. MUSCULOSKELETAL: Extremities without clubbing, cyanosis, or edema. No joint tenderness, effusion, or edema noted. No calf tenderness. Negative Homans sign bilaterally. NEUROLOGICAL: Awake and alert. Cranial nerves II through XII intact. Motor and sensory grossly within normal limits. Five out of 5 muscle strength in all muscle groups. Normal speech. Hospital Course Anemia is multifactorial patient with hemorrhoids, also anemia of chronic renal disease, patient with ESRD GI bleed H/H stable, at baseline. S/P EGD with biopsy Prominent ampulla, simple adenoma Scattered polyps in the stomach and duodenum No active bleeding The anemia could be related to chronic disease but also it could be from a lesion in the colon especially with the abnormal CT scan per GI Hold Eliquis S/p colonoscopy with internal and external hemorrhoids. Start benefiber. To follow up as OP with GI. Patient wants to go home and would like to follow up as OP with hem/onc Patient also follows with Dr Waite nephrology as OP and gets erythropoietin shots. Also follows with Dr Mason red surgeon as plan to start HD. Hypokalemia: Replace , monitor and replace as need Chronic medical problems appears stable, restart home meds as appropriate DC home with home health in stable condition to follow up as OP with PCP and consultants. To follow up with Dr Messer oncology as OP. Discussed with Dr Messer Pt Condition on Discharge: Stable Discharge Disposition: Disch w/ Home Health Serv Discharge Time: > 30 minutes Discharge Instructions DIET: Follow Instructions for: Heart Healthy Diet, Diabetic Diet Activities you can perform: Regular-No Restrictions Follow up Referrals: Gastroenterology - 2 Weeks Oncology/Hematology - 3-5 Days with Samy Messer MD PCP Follow-up - 2-3 Days New Medications: Wheat Dextrin (Benefiber) 3 Gram/3.8 Gram Powder 3 GM PO BID for gi supplement for 30 Days, PACKET Continued Medications: Amlodipine (Norvasc) 5 Mg Tab 5 MG PO BID for Blood Pressure Management, #30 TAB 0 Refills Apixaban (Eliquis) 2.5 Mg Tab 2.5 MG PO BID for Blood Clot Prevention, TAB 0 Refills B-Complex Vitamins (Vitamin B Complex) 1 Tab 1 TAB PO DAILY Biotin (Biotin) 1,000 Mcg Tab 1000 MG PO DAILY, #1 BOTTLE Bumetanide (Bumetanide) 1 Mg Tab 1 MG PO BID, #60 TAB 0 Refills Calcium Citrate-Vitamin D (Citracal Maximum) 315-250 Mg-Unit Tab 2 TAB PO BID for Calcium Supplement, #100 TAB 0 Refills Epoetin Inj (Procrit Inj) 20,000 Unit/Ml Inj 57821 UNITS SQ EVERY 2 WEEKS for Anemia, #12 VIAL [address] (Nexium) 40 Mg Capdr 40 MG PO DAILY, CAP 0 Refills Febuxostat (Uloric) 40 Mg Tab 40 TAB PO DAILY Hydralazine HCl (Hydralazine HCl) 10 Mg Tablet 20 MG PO TID Leflunomide (Leflunomide) 20 Mg Tab 20 MG PO MOWEFR, TAB Take 1 tablet (20mg) on Tuesday,Tuesday and Tuesday Levothyroxine (Levothyroxine) 100 Mcg Tab 100 MCG PO DAILY for Thyroid, #30 TAB 0 Refills Linagliptin (Tradjenta) 5 Mg Tab 5 MG PO DAILY for Blood Sugar Management, #30 TAB 0 Refills Losartan (Losartan) 100 Mg Tab 100 MG PO HS for Blood Pressure Management, #30 TAB 0 Refills Lutein (Lutein) 20 Mg Cap 20 MG PO DAILY for Nutritional Supplement, CAP 0 Refills Metolazone (Metolazone) 10 Mg Tab 10 MG PO QOD, #30 TAB 0 Refills Metoprolol Succinate ER 24 HR (Metoprolol Succinate ER 24 HR) 100 Mg Tab 100 MG PO BID, #30 TAB 0 Refills Multiple Vitamins W/ Minerals (Preservision Areds) 1 Tab 1 TAB PO DAILY for Nutritional Supplement, TAB 0 Refills Paricalcitol (Paricalcitol) 1 Mcg Cap 1 MCG PO 3XWEEK for Thyroid, #30 CAP 0 Refills Rosuvastatin (Crestor) 10 Mg Tab 10 MG PO HS for Cholesterol Management, #30 TAB 0 Refills Timolol Opth Drops (Timoptic Opth Drops) 0.5 % Soln 1 DROP EACH EYE BID for Glaucoma, #1 BOTTLE 0 Refills Tiffanie Camacho MD Jul 09, 2017 10:57
--- NOTE | 2017-07-09 11:12 | HHI.FF ---
Face to Face Verification Diagnosis: (1) CKD (chronic kidney disease) (2) GI bleed (3) DM (diabetes mellitus screen) (4) HTN (hypertension) Occupational Therapy Order: Evaluate and Treat Home Health Nursing Order: Medical education Signs/symptoms of disease process Medication education-adverse effect Nursing assessment with vital signs I have seen patient Collette Perez on 07/09/17. My clinical findings support the need for the requested home health care services because: Ltd mobility - disease progression I certify that my clinical findings support that this patient is homebound because: Post-op weakness Tiffanie Camacho MD Jul 09, 2017 11:12
[2017-07-09 12:00] VITALS: BP 117/57; PULSE 107; RESP 20; TEMP 96.9; O2SAT 93
[2017-07-09 13:51] LABS: AUTOMATED NEUTROPHIL # 9.4 TH/MM3 (1.8-7.7); BASOPHIL # 0.1 TH/MM3 (0-0.2); BASOPHIL % 1.3 % (0.0-2.0); EOSINOPHIL # 0.1 TH/MM3 (0-0.4); EOSINOPHIL % 0.7 % (0.0-4.0); HEMATOCRIT 25.8 % (35.0-46.0); HEMOGLOBIN 8.1 GM/DL (11.6-15.3); LYMPH % 5.7 % (9.0-44.0); LYMPHOCYTE # 0.6 TH/MM3 (1.0-4.8); MEAN CORPUSCULAR HEMOGLOBIN 27.3 PG (27.0-34.0); MEAN CORPUSCULAR HGB CONC 31.4 % (32.0-36.0); MEAN PLATELET VOLUME 8.6 FL (7.0-11.0); MONO % 8.9 % (0.0-8.0); NEUT % 83.4 % (16.0-70.0); PLATELET COUNT 278 TH/MM3 (150-450); RED BLOOD COUNT 2.97 MIL/MM3 (4.00-5.30); WHITE BLOOD COUNT 11.2 TH/MM3 (4.0-11.0)
[2017-07-09 13:52] LABS: CALCIUM 9.3 MG/DL (8.5-10.1)
[2017-07-09 13:58] LABS: CREATININE 2.6 MG/DL (0.50-1.00)
[2017-07-09] MEDS ORDERED: VITAMIN B COMPLEX/VIT C TAB PO ONE (14:00)
[2017-07-09 16:35] LABS: % SATURATION IRON PROFILE 7.7 % (20-50); IRON (FE) 35 MCG/DL (50-170); TOTAL IRON BINDING CAPACITY 454 MCG/DL (250-450)
[2017-07-09 16:38] LABS: FERRITIN 11 NG/ML (8-252)
== END 2017-07-09 15:09 | disposition home health service (06) | DRG 377 ==
LOC: PHED 15:50 → UNDOADMIN 21:45 → PHEDA 21:45 → PHICU 07-08 15:52 → PH3A 07-08 20:42
PROVIDERS: ADMIT Hospitalist; ATTEND Hospitalist
PROC: 30233N1 Transfusion of Nonautologous Red Blood Cells into Peripheral Vein, Percutaneous Approach (ICD-10-PCS; principal; 2017-07-07)
PROC: 0DB88ZX Excision of Small Intestine, Via Natural or Artificial Opening Endoscopic, Diagnostic (ICD-10-PCS; 2017-07-08)
PROC: 0DBM8ZX Excision of Descending Colon, Via Natural or Artificial Opening Endoscopic, Diagnostic (ICD-10-PCS; 2017-07-09)
DX: K92.2 Gastrointestinal hemorrhage, unspecified (principal); N18.6 End stage renal disease; I13.2 Hypertensive heart and chronic kidney disease with heart failure and with stage 5 chronic kidney disease, or end stage renal disease; E11.22 Type 2 diabetes mellitus with diabetic chronic kidney disease; I48.91 Unspecified atrial fibrillation; I50.9 Heart failure, unspecified; E87.6 Hypokalemia; M06.9 Rheumatoid arthritis, unspecified; E78.00 Pure hypercholesterolemia, unspecified; I25.10 Atherosclerotic heart disease of native coronary artery without angina pectoris; H40.9 Unspecified glaucoma; K21.9 Gastro-esophageal reflux disease without esophagitis; K63.5 Polyp of colon; K64.9 Unspecified hemorrhoids; K31.7 Polyp of stomach and duodenum; K57.30 Diverticulosis of large intestine without perforation or abscess without bleeding; D63.1 Anemia in chronic kidney disease; D13.5 Benign neoplasm of extrahepatic bile ducts; M10.9 Gout, unspecified; E07.9 Disorder of thyroid, unspecified; K64.4 Residual hemorrhoidal skin tags; Z85.528 Personal history of other malignant neoplasm of kidney; Z79.01 Long term (current) use of anticoagulants; Z90.5 Acquired absence of kidney; Z85.820 Personal history of malignant melanoma of skin
CPT/HCPCS: 36430; 71045; 74176; 80048; 80053; 81001; 82550; 82728; 82948; 83540; 83550; 83880; 84484; 85025; 85610; 85730; 86850; 86900; 86901; 86920; 87086; 88305; 93005; 96365; 96375; C9113; J1815; J1940; J7050; P9016

== ENCOUNTER 2017-07-27 10:28 | Inpatient (IN) | payer MEDICARE, BC ==
[2017-07-27] VITALS (8 sets, daily range): BP systolic 95–142; BP diastolic 49–61; PULSE 55–85; RESP 16–20; TEMP 96.8–98.2; O2SAT 90–99
[~2017-07-27] VITALS: Ht 167.6 cm; Wt 78.7 kg
[~2017-07-27 10:28] MED LIST changes: +WHEA1POW9 PO
[2017-07-27] MEDS ORDERED: SODIUM CHLORIDE 0.9% FLUSH 10 ML FLUSH IVF PRN (11:30)
[2017-07-27 12:00] LABS: AUTOMATED NEUTROPHIL # 6.2 TH/MM3 (1.8-7.7); BASOPHIL # 0.1 TH/MM3 (0-0.2); EOSINOPHIL # 0.2 TH/MM3 (0-0.4); EOSINOPHIL % 2.3 % (0.0-4.0); HEMATOCRIT 26.9 % (35.0-46.0); HEMOGLOBIN 8.8 GM/DL (11.6-15.3); LYMPHOCYTE # 0.5 TH/MM3 (1.0-4.8); MEAN CELL VOLUME 90.2 FL (80.0-100.0); MEAN CORPUSCULAR HEMOGLOBIN 29.6 PG (27.0-34.0); MEAN CORPUSCULAR HGB CONC 32.8 % (32.0-36.0); MEAN PLATELET VOLUME 7.5 FL (7.0-11.0); MONO % 10.8 % (0.0-8.0); MONOCYTE # 0.8 TH/MM3 (0-0.9); NEUT % 79.9 % (16.0-70.0); PLATELET COUNT 315 TH/MM3 (150-450); RED BLOOD COUNT 2.99 MIL/MM3 (4.00-5.30); RED CELL DISTRIBUTION WIDTH 19.7 % (11.6-17.2); WHITE BLOOD COUNT 7.8 TH/MM3 (4.0-11.0)
[2017-07-27 12:07] LABS: INTERNATIONAL NORMALIZED RATIO 1.2 RATIO
[2017-07-27 12:14] LABS: AST (GOT) 35 U/L (15-37); BICARBONATE 32.1 MEQ/L (21.0-32.0); BLOOD UREA NITROGEN 75 MG/DL (7-18); CALCIUM 9.1 MG/DL (8.5-10.1); CHLORIDE 99 MEQ/L (98-107); CREATININE 4.37 MG/DL (0.50-1.00); GLOMERULAR FILTRATION RATE 10 ML/MIN (>89); GLUCOSE,RANDOM 82 MG/DL (74-106); SODIUM (NA) 140 MEQ/L (136-145)
[2017-07-27 12:15] LABS: ALT (GPT) 29 U/L (10-53)
[2017-07-27 12:17] LABS: ALKALINE PHOSPHATASE 164 U/L (45-117); TOTAL BILIRUBIN ADULT 0.3 MG/DL (0.2-1.0); TOTAL PROTEIN 6.2 GM/DL (6.4-8.2)
[2017-07-27] MEDS ORDERED: SODIUM CHLORID 0.9% 500 ML INJ 500 ML IV ONE (12:30)
--- NOTE | 2017-07-27 12:31 | PD ---
HPI Chief Complaint: Medical Clearance Time Seen by Provider: 11:24 Travel History International Travel<30 days: No Contact w/Intl Traveler<30days: No Traveled to known affect area: No History of Present Illness HPI 87-year-old female with PMH of ESRD, CHF, A. fib, anemia, CAD, GERD, hiatal hernia, HTN, HLD, right nephrectomy presents to the ED for evaluation of increasing weakness. She endorses decreased appetite, chronic cough occasionally productive of white sputum. She endorses dizziness when changing positions. She endorses increased swelling of the bilateral lower extremities. She denies headache, vision changes, fever, chills chest pain, palpitations, shortness of breath, nausea, vomiting. Last bowel movement today, loose, nonbloody. Patient does make urine. Denies dysuria, hematuria. Family is at bedside and states that she suffered a fall a few weeks ago and was subsequently taken off of Eliquis. She was seen in her inventory control specialist, Dr. Waite' s office this morning and sent to the ED for admission. PFSH Past Medical History Arthritis: Yes (RA) Autoimmune Disease: Yes (RHEUMATOID ARTHRITIS) Anxiety: No Depression: No Heart Rhythm Problems: Yes Cancer: Yes (right KIDNEY- nephrectomy, melanomax2) Cardiac Catheterization: Yes (NO STENTS) Cardiovascular Problems: Yes (AFIB) High Cholesterol: Yes Chemotherapy: No Chest Pain: No Congestive Heart Failure: Yes Cerebrovascular Accident: No Diabetes: Yes (type ii) Patient Takes Glucophage: No Diminished Hearing: No Endocrine: Yes Gastrointestinal Disorders: Yes (REFLUX) GERD: Yes Glaucoma: Yes Gout: Yes Genitourinary: Yes (R KIDNEY REMOVED DUE TO CANCER) Hepatitis: No Hiatal Hernia: Yes Hypertension: Yes Immune Disorder: Yes (RA) Implanted Vascular Access Dvce: No Kidney Stones: No Medical other: Yes (BRAIN BLEED FROM A FALL 07/14/17) Musculoskeletal: Yes (RHEUMATOID ARTHRITIS, ROTATOR CUFF TEAR RIGHT) Neurologic: No Psychiatric: No Reproductive: No Respiratory: Yes Immunizations Current: Yes Pancreatitis: Yes Radiation Therapy: No Renal Failure: No Thyroid Disease: Yes Triglycerides - High: Yes Ulcer: No PNEUMOCCOCAL Vaccine (Year): 2009 ?: Not Past Surgical History Abdominal Surgery: Yes ( COLON RESECTION, bobby, appy) AICD: No Appendectomy: Yes Arteriovenous Shunt: No Cardiac Surgery: Yes (CARDIAC CATH) Cholecystectomy: Yes Ear Surgery: No Endocrine Surgery: Yes (PARATHYROIDx2) Eye Surgery: Yes (LEFT EYE RETINAL) Genitourinary Surgery: Yes (R NEPHRECTOMY 2003) Gynecologic Surgery: Yes (HYSTERECTOMY) Hysterectomy: Yes Joint Replacement: No Neurologic Surgery: No Oral Surgery: No Pacemaker: No Thoracic Surgery: Yes (BILATERAL LUMPECTOMY) Other Surgery: Yes (FISTULA LT ARM) Social History Alcohol Use: No Tobacco Use: No Substance Use: No Allergies-Medications (Allergen,Severity, Reaction): Coded Allergies: adhesive (Verified Allergy, Severe, skin breakdown, 07/07/17) PATIENT STATES NO ISSUES WITH TAPES/ADHESIVES diltiazem (Verified Allergy, Severe, 07/07/17) SOB, GI UPSET liothyronine (Verified Allergy, Severe, hypertension, 07/07/17) liotrix (Verified Allergy, Severe, hypertension, 07/07/17) nitrofurantoin (Verified Allergy, Severe, B/P ELEVATED, 07/07/17) Reported Meds & Prescriptions Reported Meds & Active Scripts Active Reported Uloric (Febuxostat) 40 Mg Tab 40 Tab PO DAILY Paricalcitol 1 Mcg Cap 1 Mcg PO 3XWEEK Bumetanide 1 Mg Tab 1 Mg PO BID Metolazone 10 Mg Tab 10 Mg PO QOD Hydralazine HCl 10 Mg Tablet 20 Mg PO TID Procrit Inj (Epoetin Marcelo) 20,000 Unit/Ml Inj 20,000 Units SQ EVERY 2 WEEKS Biotin 1,000 Mcg Tab 1,000 Mg PO DAILY Timoptic Opth Drops (Timolol Opth Drops) 0.5 % Soln 1 Drop EACH EYE BID Preservision Areds (Multiple Vitamins W/ Minerals) 1 Tab 1 Tab PO DAILY Vitamin B Complex (B-Complex Vitamins) 1 Tab 1 Tab PO DAILY Lutein 20 Mg Cap 20 Mg PO DAILY Citracal Maximum (Calcium Citrate-Vitamin D) 315-250 Mg-Unit Tab 2 Tab PO BID Nexium (Esomeprazole DR) 40 Mg Capdr 40 Mg PO DAILY Leflunomide 20 Mg Tab 20 Mg PO MOWEFR Take 1 tablet (20mg) on Tuesday,Tuesday and Tuesday Tradjenta (Linagliptin) 5 Mg Tab 5 Mg PO DAILY Levothyroxine (Levothyroxine Sodium) 100 Mcg Tab 100 Mcg PO DAILY Metoprolol Succinate ER 24 HR (Metoprolol Succinate) 100 Mg Tab 100 Mg PO BID Losartan (Losartan Potassium) 100 Mg Tab 100 Mg PO HS Norvasc (Amlodipine Besylate) 5 Mg Tab 5 Mg PO BID Crestor (Rosuvastatin Calcium) 10 Mg Tab 10 Mg PO HS Review of Systems Except as stated in HPI: all other systems reviewed are Neg Physical Exam Narrative GENERAL: Well-nourished, well-developed chronically ill-appearing white female in no acute distress. Lying on her side in the stretcher. A&O 4 SKIN: Focused skin assessment warm/dry. Poor turgor. Oral mucous membranes are dry. HEAD: Normocephalic. EYES: No scleral icterus. No injection or drainage. NECK: Supple, trachea midline. No JVD or lymphadenopathy. CARDIOVASCULAR: Regular rate and rhythm without murmurs, gallops, or rubs. RESPIRATORY: Breath sounds clear and equal bilaterally. No accessory muscle use. GASTROINTESTINAL: Abdomen soft, non-tender, nondistended. Active bowel sounds. MUSCULOSKELETAL: No cyanosis. Trace edema to the midshin and bilateral lower extremities. BACK: Nontender without obvious deformity. No CVA tenderness. Tenderness to palpation over the coccyx. Data Data Last Documented VS Vital Signs Date Time Temp Pulse Resp B/P (MAP) Pulse Ox O2 Delivery O2 Flow Rate FiO2 07/27/17 12:32 72 16 142/61 (88) 97 Nasal Cannula 2.00 07/27/17 10:30 97.7 Orders Orders Complete Blood Count With Diff (07/27/17 11:25) Comprehensive Metabolic Panel (07/27/17 11:25) B-Type Natriuretic Peptide (07/27/17 11:25) Act Partial Throm Time (Ptt) (07/27/17 11:25) Prothrombin Time / Inr (Pt) (07/27/17 11:25) Urinalysis - C+S If Indicated (07/27/17 11:25) Iv Access Insert/Monitor (07/27/17 11:25) Electrocardiogram (07/27/17 11:25) Ecg Monitoring (07/27/17 11:25) Oximetry (07/27/17 11:25) Chest, Single Ap (07/27/17 11:25) Sodium Chloride 0.9% Flush (Ns Flush) (07/27/17 11:30) Sodium Chlorid 0.9% 500 Ml Inj (Ns 500 M (07/27/17 12:30) Furosemide Inj (Lasix Inj) (07/27/17 13:15) Admit Order (Ed Use Only) (07/27/17 13:30) Consult Nephrology (07/27/17 ) Labs Laboratory Tests Test 07/27/17 11:34 White Blood Count 7.8 TH/MM3 Red Blood Count 2.99 MIL/MM3 Hemoglobin 8.8 GM/DL Hematocrit 26.9 % Mean Corpuscular Volume 90.2 FL Mean Corpuscular Hemoglobin 29.6 PG Mean Corpuscular Hemoglobin Concent 32.8 % Red Cell Distribution Width 19.7 % Platelet Count 315 TH/MM3 Mean Platelet Volume 7.5 FL Neutrophils (%) (Auto) 79.9 % Lymphocytes (%) (Auto) 6.0 % Monocytes (%) (Auto) 10.8 % Eosinophils (%) (Auto) 2.3 % Basophils (%) (Auto) 1.0 % Neutrophils # (Auto) 6.2 TH/MM3 Lymphocytes # (Auto) 0.5 TH/MM3 Monocytes # (Auto) 0.8 TH/MM3 Eosinophils # (Auto) 0.2 TH/MM3 Basophils # (Auto) 0.1 TH/MM3 CBC Comment DIFF FINAL Differential Comment Prothrombin Time 12.0 SEC Prothromb Time International Ratio 1.2 RATIO Activated Partial Thromboplast Time 27.1 SEC Blood Urea Nitrogen 75 MG/DL Creatinine 4.37 MG/DL Random Glucose 82 MG/DL Total Protein 6.2 GM/DL Albumin 3.0 GM/DL Calcium Level 9.1 MG/DL Alkaline Phosphatase 164 U/L Aspartate Amino Transf (AST/SGOT) 35 U/L Alanine Aminotransferase (ALT/SGPT) 29 U/L Total Bilirubin 0.3 MG/DL Sodium Level 140 MEQ/L Potassium Level 3.3 MEQ/L Chloride Level 99 MEQ/L Carbon Dioxide Level 32.1 MEQ/L Anion Gap 9 MEQ/L Estimat Glomerular Filtration Rate 10 ML/MIN B-Type Natriuretic Peptide 641 PG/ML MDM Medical Decision Making Medical Screen Exam Complete: Yes Emergency Medical Condition: Yes Differential Diagnosis CHF exacerbation versus anemia versus acute on chronic renal failure versus metabolic derangement versus other Narrative Course 87-year-old female with PMH of ESRD, CHF, A. fib, anemia, CAD, GERD, hiatal hernia, HTN, HLD, right nephrectomy presents to the ED for evaluation of increasing weakness,decreased appetite, chronic cough occasionally productive of white sputum, increased lower extremity edema Patient does make urine. Not currently taking Eliquis secondary to recent fall. She was seen in her inventory control specialist, Dr. Waite's office this morning and sent to the ED for admission. Temp 97.7. BP 131/51, pulse 55, O2 95% on 2 L nasal cannula on presentation. She is not O2 dependent at home. Physical exam reveals an ill-appearing white female in no acute distress. Chest is clear to auscultation bilaterally. Abdomen soft and nontender. Trace edema in the lower extremities bilaterally. Tenderness over the coccyx secondary to recent fall. Patient prefers to lie on her side. IV was established. Patient was administered 0.5 L normal saline. EKG rate 80, A. fib. Borderline LAD. Low voltage in limb leads. No ST changes. Reviewed by Dr. Gutierrez. CXR: Small left pleural effusion with associated volume loss and/or airspace consolidation. No significant change from previous CXR 07/09/17. CBC: WBC 7.8. Neutrophil predominant. RBC 2.99. Hgb 8.8. Hct 26.9. INR 1.2. CBC: Potassium 3.3. BUN 75, creatinine 4.37. Alk phos 1.64 BNP 641 Per record review Hemoglobin improved from 8.1 on 07/09. Per record review creatinine worsened from 2.60 on 07/09. Review of the patient's record reveals she had an endoscopy on 07/08/[address] Hoskins. She had dialysis fistula placed by Dr. Cuevas on 05/26/17. She has not yet begun dialysis. Patient was administered 20 mg Lasix IV. Plan to admit with consult to nephrology. Patient and her family are agreeable to this plan. Consult placed with Dr. Waite. I spoke with the residents who agreed to accept the patient to the medicine service under Dr. Rossi. Please see nephrology and medicine notes for disposition. Jayne Rutherford Jul 27, 2017 12:31
--- NOTE | 2017-07-27 12:36 | RADRPT ---
EXAM DATE/TIME: 07/27/2017 11:58 [facility] COMPARISON: CHEST SINGLE AP, July 07, 2017, 20:02. INDICATIONS : Shortness of breath. MEDICAL HISTORY : Renal failure, acute. SURGICAL HISTORY : None. ENCOUNTER: Initial ACUITY: 1 day PAIN SCORE: 0/10 LOCATION: Bilateral chest FINDINGS: Portable AP view of the chest demonstrate stable mild enlargement of the cardiac silhouette. Lungs ar e underinflated. There is a small left basilar pleural-parenchymal opacity. There is mild atelectasis at the right lung base. No pneumothorax is identified. Bones and soft tissues demonstrate no acute f inding. CONCLUSION: Small left pleural effusion with associated volume loss and/or airspace consolidation. Jcarlos Patten MD on July 27, 2017 at 12:33 Board Certified Radiologist. This report was verified electronically.
[2017-07-27] MEDS ORDERED: FUROSEMIDE 20 MG/2 ML VIAL IV PUSH ONE (13:15)
--- NOTE | 2017-07-27 13:45 | HHI.HP ---
HPI Service Family Medicine Primary Care Physician Non-Staff Admission Diagnosis Acute on chronic renal failure, CHF, hypoxia Diagnoses: International Travel<30 Days: No Contact w/Intl Traveler<30days: No Known Affected Area: No History of Present Illness 87 y/o F, hx of ESRD, send in by her record searcher's PA for her elevated creatinine, increased fatigue, and lower extremity swelling. The pt goes to the record searcher 1x/month, and she has an AV fistula partially placed. Her renal function has been pretty good recently (per pt family) but vascular surgeon was intending on placing the fistula just in case she needed it for dialysis in the future. The patient was scheduled for the second surgery installment of the fistula on July 18 but she didn't make the appt because of a fall on July 14. The patient had a bleed into her brain and was sent by [facility] to [facility], and released after a 1 week hospital stay. No neurosurgical operations were needed. They did not schedule her for any f/u, but said she would need a CT scan f/u at some point. She has also had a wet cough productive with clear mucous. Her cough has been going on for 6 months per the patient. The patient has not had any fevers at home. She has noticed that she has been getting more short of breath recently, and this is most noticeable when she lays down to go to sleep. The patient has also seemed more fatigued recently (per family member); she is more groggy in the mornings and less active than prior. The patient is fairly ambulatory and uses a cane to walk around the house with the assistance of someone on her side. Pt denies any N/V. Denies any constipation/diarrhea. Denies any changes. Denies any acute changes in mental status. (Nusrat Quevedo MD R2) Review of Systems Constitutional: DENIES: Diaphoretic episodes, Fever, Weight gain Endocrine: DENIES: Heat/cold intolerance, Polydipsia Eyes: DENIES: Eye inflammation, Eye pain Ears, nose, mouth, throat: DENIES: Hoarseness, Ear Pain Respiratory: DENIES: Cough, Snoring Gastrointestinal: DENIES: Nausea, Vomiting Genitourinary: DENIES: Dysmenorrhea Musculoskeletal: DENIES: Back pain, Neck pain Integumentary: DENIES: Abnormal pigmentation Hematologic/lymphatic: DENIES: Bruising Neurologic: DENIES: Headache Psychiatric: DENIES: Depression, Hallucinations (Nusrat Quevedo MD R2) Past Family Social History Past Medical History Past Medical History Afib (previously on eliquis, to re-start on Jul.31) DM2 CHF - (last saw 2mo ago) ESRD not on HD yet () RA () Skin cancers (s/p removal, unknown what kind) GERD kidney ca with right nephrectomy (, f/u 1x/yr) HTN PCP: Past Surgical History Past Surgical History R nephrectomy Colon resection () cholecystectomy appendectomy cardiac cath hysterectomy Sammie lumpectomy fistula right arm parathyroidectomy x 2 - 2016 in [place], (Nusrat Quevedo MD R2) Allergies: Coded Allergies: adhesive (Verified Allergy, Severe, skin breakdown, 07/07/17) PATIENT STATES NO ISSUES WITH TAPES/ADHESIVES diltiazem (Verified Allergy, Severe, 07/07/17) SOB, GI UPSET liothyronine (Verified Allergy, Severe, hypertension, 07/07/17) liotrix (Verified Allergy, Severe, hypertension, 07/07/17) nitrofurantoin (Verified Allergy, Severe, B/P ELEVATED, 07/07/17) Family History no significant family hx Social History denies smoking, drinking, or drug use (Nusrat Quevedo MD R2) Physical Exam Vital Signs Vital Signs Date Time Temp Pulse Resp B/P (MAP) Pulse Ox O2 Delivery O2 Flow Rate FiO2 07/27/17 12:32 72 16 142/61 (88) 97 Nasal Cannula 2.00 07/27/17 12:10 95 Nasal Cannula 2.00 07/27/17 11:00 55 107/54 (71) 07/27/17 10:30 97.7 113/51 (71) Room Air Physical Exam GENERAL: This is a well-nourished, well-developed patient, in no apparent distress. Pt is laying on her side and falls asleep frequently during the exam, she is AAOx3 and responsive to stimuli SKIN: No rashes, ecchymoses or lesions. Cool and dry. No sacral ulcer HEAD: Atraumatic. Normocephalic. No temporal or scalp tenderness. EYES: Pupils equal round and reactive. Extraocular motions intact. No scleral icterus. No injection or drainage. ENT: Nose without bleeding, purulent drainage or septal hematoma. Throat without erythema, tonsillar hypertrophy or exudate. Uvula midline. Airway patent. NECK: Trachea midline. No JVD or lymphadenopathy. Supple, nontender, no meningeal signs. CARDIOVASCULAR: Regular rate and rhythm without murmurs, gallops, or rubs. RESPIRATORY: Clear to auscultation. Breath sounds equal bilaterally. No wheezes , rales, or rhonchi. GASTROINTESTINAL: Abdomen soft, non-tender, nondistended. No hepato-splenomegaly , or palpable masses. No guarding. MUSCULOSKELETAL: Extremities without clubbing, cyanosis, or edema. No joint tenderness, effusion. Trace edema on L leg, and 1+ edema over ankle on dependent R leg. No calf tenderness. Negative Homans sign bilaterally. NEUROLOGICAL: Awake and alert. Cranial nerves II through XII intact. Motor and sensory grossly within normal limits. Five out of 5 muscle strength in all muscle groups. Normal speech. Laboratory Laboratory Tests Test 07/27/17 11:34 White Blood Count 7.8 Red Blood Count 2.99 Hemoglobin 8.8 Hematocrit 26.9 Mean Corpuscular Volume 90.2 Mean Corpuscular Hemoglobin 29.6 Mean Corpuscular Hemoglobin Concent 32.8 Red Cell Distribution Width 19.7 Platelet Count 315 Mean Platelet Volume 7.5 Neutrophils (%) (Auto) 79.9 Lymphocytes (%) (Auto) 6.0 Monocytes (%) (Auto) 10.8 Eosinophils (%) (Auto) 2.3 Basophils (%) (Auto) 1.0 Neutrophils # (Auto) 6.2 Lymphocytes # (Auto) 0.5 Monocytes # (Auto) 0.8 Eosinophils # (Auto) 0.2 Basophils # (Auto) 0.1 CBC Comment DIFF FINAL Differential Comment Prothrombin Time 12.0 Prothromb Time International Ratio 1.2 Activated Partial Thromboplast Time 27.1 Blood Urea Nitrogen 75 Creatinine 4.37 Random Glucose 82 Total Protein 6.2 Albumin 3.0 Calcium Level 9.1 Alkaline Phosphatase 164 Aspartate Amino Transf (AST/SGOT) 35 Alanine Aminotransferase (ALT/SGPT) 29 Total Bilirubin 0.3 Sodium Level 140 Potassium Level 3.3 Chloride Level 99 Carbon Dioxide Level 32.1 Anion Gap 9 Estimat Glomerular Filtration Rate 10 B-Type Natriuretic Peptide 641 (Nusrat Quevedo MD R2) Result Diagram: 07/27/17 1134 07/27/17 1134 Caprini VTE Risk Assessment Caprini VTE Risk Assessment: No/Low Risk (score <= 1) Caprini Risk Assessment Model Point Value = 1 Point Value = 2 Point Value = 3 Point Value = 5 Age 41-60 Minor surgery BMI > 25 kg/m2 Swollen legs Varicose veins or History of unexplained or recurrent spontaneous Oral contraceptives or hormone replacement Sepsis (< 1 month) Serious lung disease, including pneumonia (< 1 month) Abnormal pulmonary function Acute myocardial infarction Congestive heart failure (< 1 month) History of inflammatory bowel disease Medical patient at bed rest Age 61-74 Arthroscopic surgery Major open surgery (> 45 min) Laparoscopic surgery (> 45 min) Malignancy Confined to bed (> 72 hours) Immobilizing plaster cast Central venous access Age >= 75 History of VTE Family history of VTE Factor V Leiden Prothrombin [id number] Lupus anticoagulant Anticardiolipin antibodies Elevated serum homocysteine Heparin-induced thrombocytopenia Other congenital or acquired thrombophilia Stroke (< 1 month) Elective arthroplasty Hip, pelvis, or leg fracture Acute spinal cord injury (< 1 month) Prophylaxis Regimen Total Risk Factor Score Risk Level Prophylaxis Regimen 0-1 Low Early ambulation 2 Moderate Order ONE of the following: *Sequential Compression Device (SCD) *Heparin 5000 units SQ BID 3-4 Higher Order ONE of the following medications: *Heparin 5000 units SQ TID *Enoxaparin/Lovenox 40 mg SQ daily (WT < 150 kg, CrCl > 30 mL/min) *Enoxaparin/Lovenox 30 mg SQ daily (WT < 150 kg, CrCl > 10-29 mL/min) *Enoxaparin/Lovenox 30 mg SQ BID (WT < 150 kg, CrCl > 30 mL/min) AND/OR *Sequential Compression Device (SCD) 5 or more Highest Order ONE of the following medications: *Heparin 5000 units SQ TID (Preferred with Epidurals) *Enoxaparin/Lovenox 40 mg SQ daily (WT < 150 kg, CrCl > 30 mL/min) *Enoxaparin/Lovenox 30 mg SQ daily (WT < 150 kg, CrCl > 10-29 mL/min) *Enoxaparin/Lovenox 30 mg SQ BID (WT < 150 kg, CrCl > 30 mL/min) AND *Sequential Compression Device (SCD) (Nusrat Quevedo MD R2) Assessment and Plan Assessment and Plan 87-year-old female, past medical history of ESRD, recent intracranial hemorrhage , which a fibrillation, diabetes, CHF, hypertension, presenting with worsening renal function. Code Status Full code Discussed Condition With Dr. Luna Stern (Nusrat Quevedo MD R2) Attending Attestation Patient seen, examined, and discussed with resident team. I agree with assessment and management as documented and discussed with me. The patient has been seen and examined. The chart and all resident notes have been reviewed. I agree that inpatient care is appropriate and that a two midnight stay is expected for the reasons documented in the resident history and physical. I have discussed this with the resident and certify the resident s order for inpatient admission. Collette Perez is an 87yo lady with acute on chronic kidney disease sent by nephrology for worsening blood work. In addition, her son notes increasing fatigue for the last two weeks. Nephrology has been consulted and further management per their recommendations (Mallorie Carrasco MD) Problem List: (1) CKD (chronic kidney disease) ICD Codes: N18.9 - CKD (chronic kidney disease) Status: Chronic Plan: Creatinine 4.37 from 2.6 weeks ago Baseline is 2.6-3.8 hydration with slow fluids Follow-up BMP in a.m. (2) ESRD (end stage renal disease) ICD Codes: N18.6 - End stage renal disease Status: Chronic Plan: Creatinine 4.37, compared to 2.6 on July 09 Creatinine baseline per records is 2.6-3.8 Follow-up with record searcher Dr. Waite Avoid nephrotoxic agents Follow-up renal function panel Follow-up mag and phosphorus (3) CHF (congestive heart failure) ICD Codes: I50.9 - Heart failure, unspecified Status: Chronic Plan: Presents with hypotension and bradycardia, and progressive SOB, History of CHF, managed by neck fitter Last echo at [facility] in 2010: Ejection fraction 55-60%, left atrium mildly dilated BNP today 641, from 754 on July 07 portable CXR normal compared to previous, no evidence of fluid overload on PE Hold hypertensive medications for now Hold diuretics for now f/u VS f/u BNP in AM f/u PA/Lateral CXR in AM (4) Encounter for screening for traumatic brain injury ICD Codes: Z13.850 - Encounter for screening for traumatic brain injury Status: Acute Plan: CT head 07/27: Focal hemorrhage and right frontal region, parenchymal hemorrhage, small amount of subarachnoid hemorrhage, vasogenic edema in right frontal lobe - Radiologist confirms that this may be due to old hemorrhage Follow up repeat CT head 07/28 (5) HTN (hypertension) ICD Codes: I10 - HTN (hypertension) Status: Acute Plan: Hold home blood pressure medications and diuretics due to hypotension and bradycardia Follow up BPs (6) Anemia ICD Codes: D64.9 - Anemia, unspecified Status: Chronic Plan: Hb 8.8, from 8.1 weeks ago Hb baseline 8-9 Considering discharge on iron and vitamin C Follow-up CBC in a.m. (7) Afib ICD Codes: I48.91 - Afib Status: Acute Plan: A. fib on EKG Patient not on anticoagulation due to recent fall and TBI (8) Hypothyroidism ICD Codes: E03.9 - Hypothyroidism, unspecified Status: Chronic Plan: Altered mental status, history of hypothyroidism Continue home levothyroxine 100 g daily Follow-up TSH in a.m. (9) DM (diabetes mellitus screen) ICD Codes: Z13.1 - DM (diabetes mellitus screen) Status: Acute Plan: Hold home by mouth medications f/u fingersticks Insulin sliding scale (10) fen/ppx Status: Chronic Plan: Fluids: Encourage by mouth fluid intake, IV fluids at 70 MLS per hour Electrolytes: Follow-up BMP and replete accordingly Nutrition: Heart healthy diet GI prophylaxis: Continue omeprazole daily DVT prophylaxis: SCDs (Nusrat Quevedo MD R2) Physician Certification 2 Midnight Certification Type: Admission for Inpatient Services Order for Inpatient Services The services are ordered in accordance with Medicare regulations or non- Medicare payer requirements, as applicable. In the case of services not specified as inpatient-only, they are appropriately provided as inpatient services in accordance with the 2-midnight benchmark. Estimated LOS (days): 2 days is the estimated time the patient will need to remain in the hospital, assuming treatment plan goals are met and no additional complications. Post-Hospital Plan: Home (Nusrat Quevedo MD R2) Problem Qualifiers (1) Afib: Qualified Codes: I48.2 - Chronic atrial fibrillation Nusrat Quevedo MD R2 Jul 27, 2017 13:45 Mallorie Carrasco MD Jul 28, 2017 14:25
[2017-07-27] MEDS ORDERED: TIMOLOL MALEATE 0.5% OPHT SOLN 5 ML BTL EACH EYE SCH (14:30)
[2017-07-27] MEDS ORDERED: BISACODYL 10 MG SUPP RECTAL PRN (14:45)
[2017-07-27] MEDS ORDERED: MAGNESIUM HYDROXIDE SUSP 30 ML CUP PO PRN (14:45)
[2017-07-27] MEDS ORDERED: TEMAZEPAM 15 MG CAP PO PRN (14:45)
[2017-07-27] MEDS ORDERED: NALOXONE HCL 0.4 MG/ML AMP IV PUSH PRN (14:45)
[2017-07-27] MEDS ORDERED: SENNOSIDES 8.6 MG TAB PO PRN (14:45)
[2017-07-27] MEDS ORDERED: ACETAMINOPHEN 325 MG TAB PO PRN (14:45)
[2017-07-27] MEDS ORDERED: LACTULOSE SYRUP 20 GM/30 ML CUP PO PRN (14:45)
[2017-07-27] MEDS ORDERED: SODIUM CHLORIDE 0.9% FLUSH 10 ML FLUSH IV FLUSH PRN (14:45)
--- NOTE | 2017-07-27 15:13 | EKG ---
Date Performed: 07/27/2017 Time Performed: 11:47:39 PTAGE: 87 years EKG: ATRIAL FIBRILLATION BORDERLINE LEFT AXIS DEVIATION LOW QRS VOLTAGE IN EXTREMITY LEADS ABNOR MAL RHYTHM ECG No significant change from prior electrocardiogram. PREVIOUS TRACING : 07/08/2017 08.10 DOCTOR: Niko Kaur Interpretating Date/Time 07/27/2017 15:12:38
[2017-07-27] MEDS ORDERED: DEXTROSE 50% IN WATER 50 ML VIAL(D50) IV PUSH PRN (15:30)
[2017-07-27] MEDS ORDERED: GLUCAGON 1 MG/ML VIAL OTHER PRN (15:30)
--- NOTE | 2017-07-27 16:13 | RADRPT ---
EXAM DATE/TIME: 07/27/2017 15:35 [facility] COMPARISON: CT ABDOMEN & PELVIS W/O CONTRAST, July 07, 2017, 20:04. EXTERNAL COMPARISON : [facility], US KIDNEY, BILATERAL, July 06, 2012 INDICATIONS : Increased BUN/creatinine. MEDICAL HISTORY : Congestive heart failure. Hypercholesterolemia. Pancreatitis. Thyroid disease. Glaucoma. Hyperlipidem ia. Dyspnea. GERD. Hiatal hernia. Renal cell carcinoma. Rheumatoid arthritis. Type II Diabetes. Osteo porosis. Right rotator cuff tear. Melanoma. Brain bleed from fall. SURGICAL HISTORY : Appendectomy. Cholecystectomy. Colon resection. Left eye retinal surgery. Cardiac cath. Bilateral lum pectomy. Hysterectomy. Right nephrectomy. Parathyroid surgery x2. Blood transfusions. Left arm fistul a. ENCOUNTER: Initial ACUITY: 1 day PAIN SCORE: 0/10 LOCATION: Bilateral flank MEASUREMENTS: RIGHT KIDNEY: Surgically removed. LEFT KIDNEY: 12.1 x 5.8 x 6.3 cm FINDINGS: RIGHT KIDNEY: Status post right nephrectomy. No significant mass in the right nephrectomy bed. LEFT KIDNEY: There are at least 2 dominant anechoic cystic lesions noted in the left kidney. A 3.0 x 2.9 x 2.5 cm lesion in the inferior pole and a 1.6 x 1.3 x 1.3 cm lesion in the superior pole. Left kidney is othe rwise unremarkable without evidence of hydronephrosis or calculus. BLADDER: Within normal limits given the degree of distension. CONCLUSION: 1. Status post right nephrectomy without significant mass in the right nephrectomy bed. 2. No obstructive left sided uropathy. 3. here are least 2 dominant anechoic simple appearing cysts in the left kidney. Please note that add itional left-sided lesions noted on recent CT examination are not demonstrated in the current exam, l tim technical. Again, consider MRI examination on outpatient basis for further characterization of several left renal lesions with indeterminate density particularly in the superior pole. Andrés Jiang MD on July 27, 2017 at 16:00 Board Certified Radiologist. This report was verified electronically.
[2017-07-27] MEDS: INSULIN ASPART SUPPLEMENTAL SCALE SQ SCH ×2 (17:00→20:57)
[2017-07-27] MEDS: LEFLUNOMIDE 20 MG TAB PO SCH (18:00)
--- NOTE | 2017-07-27 18:25 | RADRPT ---
EXAM DATE/TIME: 07/27/2017 18:06 [facility] COMPARISON: No previous studies available for comparison. INDICATIONS : Altered mental status, renal failure. RADIATION DOSE: 41.64 CTDIvol (mGy) ; Patient motion MEDICAL HISTORY : Cardiovascular disease. Hypertension. Diabetes mellitus type 2.ESRD SURGICAL HISTORY : Nephrectomy, right. ENCOUNTER: Initial ACUITY: 1 day PAIN SCALE: 0/10 LOCATION: cranial TECHNIQUE: Multiple contiguous axial images were obtained of the head. Using automated exposure control and adj ustment of the mA and/or kV according to patient size, radiation dose was kept as low as reasonably a chievable to obtain optimal diagnostic quality images. DICOM format image data is available electro nically for review and comparison. FINDINGS: There is an area of focal hemorrhage involving the right frontal region. This appears to contain both intra-axial and extra-axial components with parenchymal hemorrhage and probable small amount of suba rachnoid hemorrhage. There is associated vasogenic edema extending throughout the remainder of the ri ght frontal lobe. Underlying mass cannot be ruled out on the basis of this examination. The ventricle s are normal. No skull fracture is noted. No midline shift is noted. CONCLUSION: Area of focal hemorrhage involving the right frontal region. This appears to contain both intra-axial and extra-axial components with parenchymal hemorrhage and probable small amount of subarachnoid hemorrhage. There is associated vasogenic edema extending throughout the remainder of th e right frontal lobe. Underlying mass cannot be ruled out on the basis of this examination. Gavino Wu MD on July 27, 2017 at 18:19 Board Certified Radiologist. This report was verified electronically.
[2017-07-27] MEDS: SODIUM CHLOR 0.9% 1000 ML INJ 1,000 ML IV SCH (18:55)
[2017-07-27] MEDS: DOCUSATE SODIUM 50 MG/SENNA 8.6 MG TAB PO SCH (20:56)
[2017-07-27] MEDS: ATORVASTATIN 20 MG TAB PO SCH (20:56)
[2017-07-27] MEDS: SODIUM CHLORIDE 0.9% FLUSH 10 ML FLUSH IV FLUSH SCH (20:56)
[2017-07-28] VITALS (13 sets, daily range): BP systolic 85–106; BP diastolic 47–67; PULSE 78–104; RESP 18–20; TEMP 96.5–99.4; O2SAT 92–99
[2017-07-28 05:10] LABS: BACTERIA, URINE RARE /hpf; BILIRUBIN, URINE NEG (NEG); BLOOD, URINE NEG (NEG); GLUCOSE,URINE NEG (NEG); HYALINE CAST, URINE 6 /lpf (RARE); KETONE, URINE NEG (NEG); MUCUS URINE FEW /lpf (OCC); NITRITE,URINE NEG (NEG); SQUAMOUS EPITHELIAL CELL URINE <1 /hpf (0-5); URINE COLOR YELLOW (YELLW/STRAW); URINE LEUKOCYTE ESTERASE NEG (NEG)
[2017-07-28] MEDS ORDERED: POTASSIUM CHLORIDE 10 MEQ CONTROLLED RELEASE TAB PO ONE (06:00)
[2017-07-28] MEDS: SODIUM CHLOR 0.9% 1000 ML INJ 1,000 ML IV SCH ×2 (06:11→20:00)
[2017-07-28] MEDS: LEVOTHYROXINE SODIUM 100 MCG TAB PO SCH (06:11)
[2017-07-28] MEDS: INSULIN ASPART SUPPLEMENTAL SCALE SQ SCH ×4 (08:00→20:39)
[2017-07-28 08:25] LABS: AUTOMATED NEUTROPHIL # 6.7 TH/MM3 (1.8-7.7); BASOPHIL # 0.1 TH/MM3 (0-0.2); EOSINOPHIL # 0.1 TH/MM3 (0-0.4); EOSINOPHIL % 1.1 % (0.0-4.0); HEMATOCRIT 29.5 % (35.0-46.0); HEMOGLOBIN 9.3 GM/DL (11.6-15.3); LYMPHOCYTE # 0.5 TH/MM3 (1.0-4.8); MEAN CELL VOLUME 92.2 FL (80.0-100.0); MEAN CORPUSCULAR HEMOGLOBIN 29.1 PG (27.0-34.0); MEAN CORPUSCULAR HGB CONC 31.5 % (32.0-36.0); MEAN PLATELET VOLUME 7.8 FL (7.0-11.0); MONO % 10.9 % (0.0-8.0); MONOCYTE # 0.9 TH/MM3 (0-0.9); PLATELET COUNT 300 TH/MM3 (150-450); RED BLOOD COUNT 3.19 MIL/MM3 (4.00-5.30); RED CELL DISTRIBUTION WIDTH 20.5 % (11.6-17.2); WHITE BLOOD COUNT 8.3 TH/MM3 (4.0-11.0)
[2017-07-28] MEDS ORDERED: PANTOPRAZOLE SOD 20 MG DELAYED RELEASE TAB PO SCH (09:00)
[2017-07-28] MEDS: SODIUM CHLORIDE 0.9% FLUSH 10 ML FLUSH IV FLUSH SCH ×2 (09:00→20:36)
[2017-07-28] MEDS ORDERED: FEBUXOSTAT 40 MG PO SCH (09:00)
[2017-07-28 09:02] LABS: ALBUMIN 2.9 GM/DL (3.4-5.0); ALT (GPT) 30 U/L (10-53); AST (GOT) 51 U/L (15-37); BICARBONATE 31.5 MEQ/L (21.0-32.0); BLOOD UREA NITROGEN 76 MG/DL (7-18); CALCIUM 9.1 MG/DL (8.5-10.1); CHLORIDE 101 MEQ/L (98-107); CREATININE 4.61 MG/DL (0.50-1.00); GLOMERULAR FILTRATION RATE 9 ML/MIN (>89); GLUCOSE,RANDOM 64 MG/DL (74-106); MAGNESIUM 1.9 MG/DL (1.5-2.5); SODIUM (NA) 141 MEQ/L (136-145)
[2017-07-28 09:14] LABS: ALKALINE PHOSPHATASE 157 U/L (45-117); TOTAL BILIRUBIN ADULT 0.3 MG/DL (0.2-1.0); TOTAL PROTEIN 6.3 GM/DL (6.4-8.2)
[2017-07-28] MEDS: DOCUSATE SODIUM 50 MG/SENNA 8.6 MG TAB PO SCH ×2 (09:57→20:36)
[2017-07-28] MEDS: PANTOPRAZOLE SOD 40 MG DELAYED RELEASE TAB PO SCH (09:57)
--- NOTE | 2017-07-28 10:24 | RADRPT ---
EXAM DATE/TIME: 07/28/2017 10:11 [facility] COMPARISON: CHEST SINGLE AP, July 27, 2017, 11:58. INDICATIONS : Short of breath. MEDICAL HISTORY : Congestive heart failure. Hypercholesterolemia. Pancreatitis. Thyroid disease. Glaucoma. Hyperlipidem ia. Dyspnea. GERD. Hiatal hernia. Renal cell carcinoma. Rheumatoid arthritis. Type II Diabetes. Osteo porosis. Right rotator cuff tear. Melanoma. Brain bleed from fall. SURGICAL HISTORY : Appendectomy. Cholecystectomy. Colon resection. Left eye retinal surgery. Cardiac cath. Bilateral lum pectomy. Hysterectomy. Right nephrectomy. Parathyroid surgery x2. Blood transfusions. Left arm fistul a. ENCOUNTER: Subsequent ACUITY: 2 days PAIN SCORE: 0/10 LOCATION: chest FINDINGS: PA and lateral views of the chest demonstrate patchy opacity left lower lobe. Cardiomegaly. Probable small pleural effusion. Osseous structures are intact. CONCLUSION: Patchy opacities left lower lobe and probable small pleural effusion. Findings are more prominent on current study. Cardiomegaly. Trip Youssef MD on July 28, 2017 at 10:20 Board Certified Radiologist. This report was verified electronically.
--- NOTE | 2017-07-28 10:35 | RADRPT ---
EXAM DATE/TIME: 07/28/2017 10:18 [facility] COMPARISON: CT BRAIN W/O CONTRAST, July 27, 2017, 18:06. INDICATIONS : Evaluate for extension of hemorrhage. RADIATION DOSE: 56.35 CTDIvol (mGy) MEDICAL HISTORY : Renal cell carcinoma. Cardiovascular disease Hypertension. SURGICAL HISTORY : Nephrectomy, right. Hysterectomy.Appendectomy.Cholecystectomy, colon resection ENCOUNTER: Subsequent ACUITY: 2 days PAIN SCALE: 0/10 LOCATION: cranial TECHNIQUE: Multiple contiguous axial images were obtained of the head. Using automated exposure control and adj ustment of the mA and/or kV according to patient size, radiation dose was kept as low as reasonably a chievable to obtain optimal diagnostic quality images. DICOM format image data is available electro nically for review and comparison. FINDINGS: CEREBRUM: Right frontal intraparenchymal hemorrhage and adjacent vasogenic edema is again seen and does not anitha ear to have significantly changed measuring up to 2.7 cm. There is mass effect without midline shift. Ventricles remain patent. The ventricles are normal for age. No evidence of midline shift, mass les ion, or acute infarction. No extra-axial fluid collections are seen. POSTERIOR FOSSA: The cerebellum and brainstem are intact. The 4th ventricle is midline. The cerebellopontine angle i s unremarkable. EXTRACRANIAL: The visualized portion of the orbits is intact. SKULL: The calvaria is intact. No evidence of skull fracture. CONCLUSION: 1. Right frontal intraparenchymal hemorrhage and adjacent vasogenic edema does not appear to have sig nificantly changed. Hemorrhagic mass also remains in the differential but felt to be less likely. Trip Youssef MD on July 28, 2017 at 10:30 Board Certified Radiologist. This report was verified electronically.
--- NOTE | 2017-07-28 14:27 | HHI.FPPN ---
Subjective Remarks No acute issues overnight. Patient is mildly hypotensive in the 80s/40-50s this morning. She remains afebrile. O2 saturation 92-98% on 3-4L NC. Intake 1000 mL, output 600 mL in the past 24 hours. She denies any chest pain, shortness of breath, dizziness, fever, chills, nausea or vomiting. She continues to produce to urine. (Sabina Berger MD, R3) Objective Vitals Vital Signs Date Time Temp Pulse Resp B/P (MAP) Pulse Ox O2 Delivery O2 Flow Rate FiO2 07/28/17 12:00 97.6 104 18 105/51 (69) 94 07/28/17 11:51 92 Nasal Cannula 4.00 07/28/17 08:00 98.1 85 18 85/54 (64) 98 07/28/17 08:00 82 07/28/17 07:15 Nasal Cannula 3.00 07/28/17 04:00 97.6 78 18 85/47 (60) 98 07/28/17 04:00 Nasal Cannula 3.00 07/28/17 04:00 79 07/28/17 00:00 Nasal Cannula 3.00 07/28/17 00:00 78 07/28/17 00:00 99.4 97 20 104/67 (79) 99 07/27/17 20:00 96.8 78 18 95/49 (64) 90 07/27/17 20:00 Nasal Cannula 3.00 07/27/17 20:00 85 07/27/17 18:15 97.1 80 18 95/53 (67) 90 07/27/17 15:42 98.2 82 20 103/58 (73) 99 07/27/17 14:42 76 16 108/52 (70) 96 Nasal Cannula 2.00 I/O 07/27/17 07/27/17 07/27/17 07/28/17 07/28/17 07/28/17 07:00 15:00 23:00 07:00 15:00 23:00 Intake Total 1000 ml Output Total 600 ml Balance 400 ml Intake IV Total 1000 ml Output Urine Total 600 ml Bladder Scan Volume Amount 403 ml (Sabina Berger MD, R3) Result Diagram: 07/28/17 0807 07/28/17 0807 Imaging Last Impressions Chest X-Ray 07/28/17 0600 Signed Impressions: Service Date/Time: July 10:11 - CONCLUSION: Patchy opacities left lower lobe and probable small pleural effusion. Findings are more prominent on current study. Cardiomegaly. Trip Youssef MD Head CT 07/28/17 0000 Signed Impressions: Service Date/Time: July 10:18 - CONCLUSION: 1. Right frontal intraparenchymal hemorrhage and adjacent vasogenic edema does not appear to have significantly changed. Hemorrhagic mass also remains in the differential but felt to be less likely. Trip Youssef MD Renal Ultrasound 07/27/17 0000 Signed Impressions: Service Date/Time: Thursday, July 27, 2017 15:35 - CONCLUSION: 1. Status post right nephrectomy without significant mass in the right nephrectomy bed. 2. No obstructive left sided uropathy. 3. here are least 2 dominant anechoic simple appearing cysts in the left kidney. Please note that additional left-sided lesions noted on recent CT examination are not demonstrated in the current exam , likely technical. Again, consider MRI examination on outpatient basis for further characterization of several left renal lesions with indeterminate density particularly in the superior pole. Andrés Jiang MD Objective Remarks GENERAL: Well-nourished, well-developed elderly female patient in no acute distress. SKIN: Warm and dry. No rashes or lesions present. EYES: No scleral icterus. No conjunctival injection or drainage. Pupils equal, round, reactive to light and accommodation. Extraocular movements intact. THROAT: Moist mucous membranes. NECK: Supple, trachea midline. CARDIOVASCULAR: Regular rate and rhythm without murmurs, gallops, or rubs. Strong radial and pedal pulses. CHEST: Symmetric chest expansion with respiration. RESPIRATORY: Breath sounds clear to auscultation bilaterally. No accessory muscle use. No wheezes, rhonchi or rales. GASTROINTESTINAL: Abdomen soft, non-tender, nondistended. MUSCULOSKELETAL: No cyanosis. Trace lower extremity edema bilaterally. NEURO: Awake and alert. Cranial nerves II through XII grossly intact. PSYCH: Normal mood and affect. Normal speech. (Sabina Berger MD, R3) A/P Assessment and Plan Patient is an 87-year-old female with a past medical history significant for ESRD, recent intracranial hemorrhage, atrial fibrillation, diabetes, CHF, and hypertension who presented after being sent to the hospital by her pump house operator for increasing creatinine, fatigue, and lower extremity edema, admitted for worsening renal function . Discharge Planning Unclear timetable at this time, pending improvement in symptoms likely with dialysis (Sabina Berger MD, R3) Attending Attestation Patient seen, examined, and discussed with resident team. I agree with assessment and management as documented and discussed with me. Pt hypotensive overnight; asymptomatic. Will hold timolol eye drops as this may be contributing. (Mallorie Carrasco MD) Problem List: (1) ESRD (end stage renal disease) ICD Codes: N18.6 - End stage renal disease Status: Chronic Plan: Worsening renal function. Creatinine 4.37 on admission, trending up to 4.61 today. Creatinine baseline per records is 2.6-3.8. Creatinine 2.6 as recently as Jul 09. Patient follows with pump house operator Dr. Waite Plan: - Avoid nephrotoxic agents - Consult nephrology- IR to place hemodialysis PermCath (2) CHF (congestive heart failure) ICD Codes: I50.9 - Heart failure, unspecified Status: Chronic Plan: Progressive SOB Last echo at [facility] in 2010: Ejection fraction 55-60%, left atrium mildly dilated BNP today 641 on admission, trending up to 791 today likely secondary to gentle hydration overnight portable CXR normal compared to previous, no evidence of fluid overload on PE Hold hypertensive medications for now Hold diuretics for now Repeat CXR today shows more prominent findings of patchy opacities in the LLL and probable small pleural effusion. Will hold IV fluids. (3) HTN (hypertension) ICD Codes: I10 - HTN (hypertension) Status: Chronic Plan: Currently hypotensive. Hold home blood pressure medications and diuretics due to hypotension Continue to monitor BP (4) Intraparenchymal hematoma of brain ICD Codes: S06.360A - Traumatic hemorrhage of cerebrum, unspecified, without loss of consciousness, initial encounter Status: Chronic Plan: Patient is s/p fall on July 14 with subsequent intracranial bleed and hospitalization at [facility] for one week. 07/27 CT head: Focal hemorrhage and right frontal region, parenchymal hemorrhage , small amount of subarachnoid hemorrhage, vasogenic edema in right frontal lobe - Radiologist confirms that this may be due to old hemorrhage 2/[address]: right frontal intraparenchymal hemorrhage and adjacent vasogenic edema does not appear to have significantly changed. Hemorrhagic mass also remains in the differential but felt to be less likely. Continue to monitor neurologic status (5) Afib ICD Codes: I48.91 - Afib Status: Chronic Plan: A. fib on EKG Patient not on anticoagulation due to recent fall and TBI Hold home metoprolol (6) Hypothyroidism ICD Codes: E03.9 - Hypothyroidism, unspecified Status: Chronic Plan: TSH wnl at 3.480 Continue home levothyroxine 100 g daily (7) DM (diabetes mellitus screen) ICD Codes: Z13.1 - DM (diabetes mellitus screen) Status: Chronic Plan: Hold home Tradjenta Bedside glucose ranging 73-143 Accu-Cheks with SSI (8) fen/ppx Status: Chronic Plan: Fluids: Encourage PO intake, careful with IV hydration due to CHF and ESRD Electrolytes: Continue to monitor and replete PRN Nutrition: NPO pending PermCath placement DVT prophylaxis: SCDs, chemical anticoagulation held for intracranial bleed (Sabina Berger MD, R3) Problem Qualifiers (1) CHF (congestive heart failure): Qualified Codes: I50.9 - Heart failure, unspecified (2) HTN (hypertension): Qualified Codes: I10 - Essential (primary) hypertension (3) Intraparenchymal hematoma of brain: Qualified Codes: S06.349D - Traumatic hemorrhage of right cerebrum with loss of consciousness of unspecified duration, subsequent encounter (4) Afib: Qualified Codes: I48.2 - Chronic atrial fibrillation (5) Hypothyroidism: Qualified Codes: E03.9 - Hypothyroidism, unspecified Sabina Berger MD, R3 Jul 28, 2017 14:27 Mallorie Carrasco MD Jul 28, 2017 15:02
[2017-07-28] MEDS ORDERED: MIDAZOLAM HCL 2 MG/2 ML VIAL ONE (14:32)
[2017-07-28] MEDS ORDERED: ceFAZolin 2 GM PREMIX 50 ML ONE (14:51)
[2017-07-28] MEDS ORDERED: SODIUM CHLORIDE 0.9% FLUSH 10 ML FLUSH IV FLUSH PRN ×2 (15:00→18:45)
[2017-07-28] MEDS ORDERED: HEPARIN SODIUM - IV 2,000 UNITS/2 ML VIAL IV FLUSH PRN (15:00)
--- NOTE | 2017-07-28 15:02 | PD.RAD ---
Post Procedure Progress Note Pre Procedure Diagnosis: (1) ESRD (end stage renal disease) Post Procedure Diagnosis: (1) ESRD (end stage renal disease) Procedure Date: Jul 28, 2017 Supervising Radiologist: Thang Tucker JR Proceduralist/Assist: Shima David, RT(R)(), Aleyda Canchola RT(R)(CV) Anesthesia: Conscious Sedation Plan of Activity Patient to Unit: ROPU Patient Condition: Good See PACS Report for procedural detail/treatment Central Venous Access Device Procedure 1 Right Internal Jugular Hemodialysis Catheter Tunneled Placement dual lumen [place]: 15 Findings: Placed right IJ permcath. This functions well. In good position. OK to use. Plan Remove sutures in 1-2 weeks Jr. Garrett,Thang Delgado MD Jul 28, 2017 15:02
--- NOTE | 2017-07-28 15:33 | RADRPT ---
EXAM DATE/TIME: 07/28/2017 15:18 [facility] COMPARISON: No previous studies available for comparison. INDICATIONS : Patient with a history of renal disase, needs permcath placement for dialysis. MEDICAL HISTORY : ESRD AFIB Diabetes CHF Arthritis GERD SURGICAL HISTORY : Nephrectomy colon resection Cholecystectomy Appendectomy Cardiac cath Hysterectomy ENCOUNTER: Initial ACUITY: 1 month PAIN SCORE: 0/10 FLUORO TIME: 0.4 minutes IMAGE SERIES: 1 SEDATION TIME: 20 minutes ACCESS: Right internal jugular vein SEDATION: 1.) 0.25 mg midazolam (Versed) IV 2.) 12.5 mg fentanyl (Sublimaze) IV Prophylactic antibiotics were administered with appropriate pre-procedure timing. Vancomycin within 2 hours of procedure, Ancef (or alternative) within 1 hour of procedure. DEVICE: 1. 15 [place] dual lumen 23 cm Barnes II Plus catheter PROCEDURE : 1. Ultrasound-guided venipuncture. 2. PermaCath placement. 3. Conscious sedation with continuous EKG and oximetry monitoring. The risks, benefits and alternatives to the procedure were explained and verbal and written consent w as obtained. The site was prepped in sterile fashion. Full sterile technique was used, including ca p, mask, sterile gloves and gown and a large sterile sheet. Hand hygiene and 2% chlorhexidine and/or betadine/alcohol prep was utilized per protocol for cutaneous antisepsis. Sterile gel and sterile p robe cover were utilized for ultrasound guidance. The skin and subcutaneous tissues were infiltrated with local anesthetic solution. With ultrasound and fluoroscopic guidance a dermatotomy was created over the prescribed vein. A micr opuncture set was used to access the targeted vein and serial dilatation was performed to accept the prescribed length catheter. A subcutaneous tunnel was created in a retrograde fashion the catheter w as pulled through the tunnel. The catheter was flushed and assembled and locked with heparin. The c atheter was sutured in place. Conscious sedation was performed with the prescribed dosages and duration as above in the presence of an independent trained radiology nurse to assist in the monitoring of the patient. EKG and oximetry remained stable throughout the procedure. The patient tolerated the procedure well and there were n o complications. The patient was sent to post anesthesia recovery in stable condition. CONCLUSION: Uncomplicated PermaCath placement as above. Thang Tucker Jr., MD on July 28, 2017 at 15:30 Board Certified Radiologist. This report was verified electronically.
[2017-07-28] MEDS ORDERED: SODIUM CHLOR 0.9% 1000 ML INJ 1,000 ML OTHER PRN ×2 (18:42)
[2017-07-28] MEDS ORDERED: SODIUM CHLOR 0.9% 1000 ML INJ 1,000 ML IV PRN (18:42)
[2017-07-28] MEDS ORDERED: ONDANSETRON HCL 4 MG/2 ML VIAL IV PUSH PRN (18:45)
[2017-07-28] MEDS ORDERED: ACETAMINOPHEN 325 MG TAB PO PRN (18:45)
[2017-07-28] MEDS ORDERED: cloNIDine HCL 0.1 MG TAB PO PRN (18:45)
[2017-07-28] MEDS ORDERED: ALBUMIN 25% INJ 100 ML IV PRN (18:45)
[2017-07-28] MEDS ORDERED: diphenhydrAMINE HCL 25 MG CAP PO PRN (18:45)
[2017-07-28] MEDS ORDERED: GELATIN 12 MM/7 MM FOAM TOP PRN (18:45)
[2017-07-28] MEDS ORDERED: NITROGLYCERIN 0.4 MG SL 25 TABS/BTL SL PRN (18:45)
--- NOTE | 2017-07-28 19:21 | PD.CONS ---
HPI Service Nephrology Reason for Consult Known CKD Primary Care Physician Non-Staff History of Present Illness The patient is an 87 yo [place] female who was advised by our office to come to the hospital for further evaluation of renal decline and fluid retention. She has been stage 4/5 for some time with a developing LUE AVF. She fell 2 weeks ago and sustained a SDH treated at [facility]. When she presented to the office for f/u yesterday, it was noted that her SCr had risen to 3.7 (baseline 2.5-2.7 ) and that she had a significant amount of pitting edema in lower extremities. She is seen today s/p PermCath placement as SCr mike again this AM to 4.61 with a eGFR of 9 and it is recommended that we initiate dialysis during this admission given her progressive decline. Son, Kash, present in room. The patient herself if quite drowsy as she just had PermCath placed. Review of Systems Constitutional: COMPLAINS OF: Fatigue, Change in appetite Cardiovascular: COMPLAINS OF: Lower Extremity Edema Gastrointestinal: COMPLAINS OF: Nausea Past Family Social History Allergies: Coded Allergies: adhesive (Verified Allergy, Severe, skin breakdown, 07/07/17) PATIENT STATES NO ISSUES WITH TAPES/ADHESIVES diltiazem (Verified Allergy, Severe, 07/07/17) SOB, GI UPSET liothyronine (Verified Allergy, Severe, hypertension, 07/07/17) liotrix (Verified Allergy, Severe, hypertension, 07/07/17) nitrofurantoin (Verified Allergy, Severe, B/P ELEVATED, 07/07/17) Past Medical History CKD stage 4/5 Recent SDH in hospital at [facility] Afib DM CHF RA Skin cancer GERD RCC s/p right nephrectomy HTN Past Surgical History R nephrectomy Colon resection cholecystectomy appendectomy cardiac cath hysterectomy Sammie lumpectomy Left AVF parathyroidectomy x 2 Reported Medications Uloric (Febuxostat) 40 Mg Tab 40 Tab PO DAILY Paricalcitol 1 Mcg Cap 1 Mcg PO 3XWEEK Bumetanide 1 Mg Tab 1 Mg PO BID Metolazone 10 Mg Tab 10 Mg PO QOD Hydralazine HCl 10 Mg Tablet 20 Mg PO TID Procrit Inj (Epoetin Marcelo) 20,000 Unit/Ml Inj 20,000 Units SQ EVERY 2 WEEKS Biotin 1,000 Mcg Tab 1,000 Mg PO DAILY Timoptic Opth Drops (Timolol Opth Drops) 0.5 % Soln 1 Drop EACH EYE BID Preservision Areds (Multiple Vitamins W/ Minerals) 1 Tab 1 Tab PO DAILY Vitamin B Complex (B-Complex Vitamins) 1 Tab 1 Tab PO DAILY Lutein 20 Mg Cap 20 Mg PO DAILY Citracal Maximum (Calcium Citrate-Vitamin D) 315-250 Mg-Unit Tab 2 Tab PO BID Nexium (Esomeprazole DR) 40 Mg Capdr 40 Mg PO DAILY Leflunomide 20 Mg Tab 20 Mg PO MOWEFR Take 1 tablet (20mg) on Tuesday,Tuesday and Tuesday Tradjenta (Linagliptin) 5 Mg Tab 5 Mg PO DAILY Levothyroxine (Levothyroxine Sodium) 100 Mcg Tab 100 Mcg PO DAILY Metoprolol Succinate ER 24 HR (Metoprolol Succinate) 100 Mg Tab 100 Mg PO BID Losartan (Losartan Potassium) 100 Mg Tab 100 Mg PO HS Norvasc (Amlodipine Besylate) 5 Mg Tab 5 Mg PO BID Crestor (Rosuvastatin Calcium) 10 Mg Tab 10 Mg PO HS Active Ordered Medications Current Medications Medications (Trade) Dose Ordered Sig/Shahana Route Start Time Stop Time Status Last Admin (Synthroid) 100 mcg DAILY@0600 PO 07/28/17 06:00 07/28/17 06:11 (Timoptic 0.5% Opth Soln) 1 drop BID EACH EYE 07/27/17 14:30 Future Hold (Protonix) 40 mg DAILY PO 07/28/17 09:00 07/28/17 09:57 Patient Own Medication PT OWN MED: (Febuxos... DAILY PO 07/28/17 09:00 Future Hold (Arava) 20 mg MoWeFr@0900 PO 07/27/17 18:00 (Lipitor) 20 mg HS PO 07/27/17 21:00 07/27/17 20:56 (NS Flush) 2 ml UNSCH PRN IV FLUSH 07/27/17 14:45 (NS Flush) 2 ml BID IV FLUSH 07/27/17 21:00 07/28/17 09:00 (Tylenol) 650 mg Q4H PRN PO 07/27/17 14:45 (Narcan Inj) 0.4 mg UNSCH PRN IV PUSH 07/27/17 14:45 (Maira-Colace) 1 tab BID PO 07/27/17 21:00 07/28/17 09:57 (Milk Of Magnesia Liq) 30 ml Q12H PRN PO 07/27/17 14:45 (Senokot) 17.2 mg Q12H PRN PO 07/27/17 14:45 (Dulcolax Supp) 10 mg DAILY PRN RECTAL 07/27/17 14:45 (Lactulose Liq) 30 ml DAILY PRN PO 07/27/17 14:45 (D50w (Vial) Inj) 50 ml UNSCH PRN IV PUSH 07/27/17 15:30 07/27/17 21:00 (Glucagon Inj) 1 mg UNSCH PRN OTHER 07/27/17 15:30 (NovoLOG SUPPLEMENTAL SCALE) 1 ACHS SLIDING SCALE SQ 07/27/17 17:00 (NS Flush) UNSCH PRN IV FLUSH 07/28/17 15:00 (Heparin Inj) UNSCH PRN IV FLUSH 07/28/17 15:00 Sodium Chloride 1,000 ml @ 50 mls/hr Q20H IV 07/28/17 20:00 Sodium Chloride 1,000 ml @ 0 mls/hr Q0M PRN OTHER 07/28/17 18:42 Sodium Chloride 1,000 ml @ 200 mls/hr Q5H PRN IV 07/28/17 18:42 Sodium Chloride 1,000 ml @ 0 mls/hr Q0M PRN OTHER 07/28/17 18:42 Albumin Human 100 ml @ 60 mls/hr UNSCH PRN IV 07/28/17 18:45 (NS Flush) 5 ml UNSCH PRN IV FLUSH 07/28/17 18:45 (Heparin Inj) UNSCH PRN .XX 07/28/17 18:45 (Gentamicin Inj) 20 mg UNSCH PRN OTHER 07/28/17 18:45 (Zofran Inj) 4 mg UNSCH PRN IV PUSH 07/28/17 18:45 (Tylenol) 650 mg UNSCH PRN PO 07/28/17 18:45 (Benadryl) 25 mg UNSCH PRN PO 07/28/17 18:45 (Nitrostat Sl) 0.4 mg UNSCH PRN SL 07/28/17 18:45 (Catapres) 0.1 mg UNSCH PRN PO 07/28/17 18:45 (Gelfoam 12 Mm/7 Mm Top) 1 foam UNSCH PRN TOP 07/28/17 18:45 Family History [place] Social History Lives locally. Son is active in her life and has moved here to take care of her No EtOH No tobacco No illicits Physical Exam Vital Signs Vital Signs Date Time Temp Pulse Resp B/P (MAP) Pulse Ox O2 Delivery O2 Flow Rate FiO2 07/28/17 16:00 78 07/28/17 15:55 89 18 96/58 (71) 97 07/28/17 15:25 96 18 97/61 (73) 98 07/28/17 15:10 97.0 90 18 100/51 (67) 92 07/28/17 12:00 97.6 104 18 105/51 (69) 94 07/28/17 12:00 82 07/28/17 11:51 92 Nasal Cannula 4.00 07/28/17 08:00 98.1 85 18 85/54 (64) 98 07/28/17 08:00 82 07/28/17 07:15 Nasal Cannula 3.00 07/28/17 04:00 97.6 78 18 85/47 (60) 98 07/28/17 04:00 Nasal Cannula 3.00 07/28/17 04:00 79 07/28/17 00:00 Nasal Cannula 3.00 07/28/17 00:00 78 07/28/17 00:00 99.4 97 20 104/67 (79) 99 07/27/17 20:00 96.8 78 18 95/49 (64) 90 07/27/17 20:00 Nasal Cannula 3.00 07/27/17 20:00 85 Physical Exam GENERAL: Pt quite drowsy but is arousable. SKIN: Warm and dry. HEAD: Atraumatic. Normocephalic. EYES: Pupils equal and round. No scleral icterus. No injection or drainage. ENT: No nasal bleeding or discharge. Mucous membranes pink and moist. NECK: Trachea midline. No JVD. CARDIOVASCULAR: Irregularly irregular RESPIRATORY: No accessory muscle use. Clear to auscultation. Breath sounds equal bilaterally. GASTROINTESTINAL: Abdomen soft, non-tender, nondistended. Hepatic and splenic margins not palpable. MUSCULOSKELETAL: Extremities without clubbing, cyanosis, trace BLE NEUROLOGICAL: Awake and alert but drowsy PSYCHIATRIC: Appropriate mood and affect; insight and judgment normal. Laboratory Laboratory Tests Test 07/28/17 04:45 07/28/17 08:07 Urine Color YELLOW Urine Turbidity CLEAR Urine pH 5.0 Urine Specific [place] 1.015 Urine Protein TRACE Urine Glucose (UA) NEG Urine Ketones NEG Urine Occult Blood NEG Urine Nitrite NEG Urine Bilirubin NEG Urine Urobilinogen LESS THAN 2.0 Urine Leukocyte Esterase NEG Urine WBC 1 Urine Squamous Epithelial Cells <1 Urine Bacteria RARE Urine Hyaline Casts 6 Urine Mucus FEW Microscopic Urinalysis Comment CULT NOT INDICATED White Blood Count 8.3 Red Blood Count 3.19 Hemoglobin 9.3 Hematocrit 29.5 Mean Corpuscular Volume 92.2 Mean Corpuscular Hemoglobin 29.1 Mean Corpuscular Hemoglobin Concent 31.5 Red Cell Distribution Width 20.5 Platelet Count 300 Mean Platelet Volume 7.8 Neutrophils (%) (Auto) 81.0 Lymphocytes (%) (Auto) 6.0 Monocytes (%) (Auto) 10.9 Eosinophils (%) (Auto) 1.1 Basophils (%) (Auto) 1.0 Neutrophils # (Auto) 6.7 Lymphocytes # (Auto) 0.5 Monocytes # (Auto) 0.9 Eosinophils # (Auto) 0.1 Basophils # (Auto) 0.1 CBC Comment DIFF FINAL Differential Comment Blood Urea Nitrogen 76 Creatinine 4.61 Random Glucose 64 Total Protein 6.3 Albumin 2.9 Calcium Level 9.1 Magnesium Level 1.9 Alkaline Phosphatase 157 Aspartate Amino Transf (AST/SGOT) 51 Alanine Aminotransferase (ALT/SGPT) 30 Total Bilirubin 0.3 Sodium Level 141 Potassium Level 4.2 Chloride Level 101 Carbon Dioxide Level 31.5 Anion Gap 9 Estimat Glomerular Filtration Rate 9 Ammonia 41 Total Creatine Kinase 147 B-Type Natriuretic Peptide 791 Thyroid Stimulating Hormone 3rd Gen 3.480 Result Diagram: 07/28/17 0807 07/28/17 0807 Imaging Last Impressions Chest X-Ray 07/28/17 0600 Signed Impressions: Service Date/Time: July 10:11 - CONCLUSION: Patchy opacities left lower lobe and probable small pleural effusion. Findings are more prominent on current study. Cardiomegaly. Trip Youssef MD Head CT 07/28/17 0000 Signed Impressions: Service Date/Time: July 10:18 - CONCLUSION: 1. Right frontal intraparenchymal hemorrhage and adjacent vasogenic edema does not appear to have significantly changed. Hemorrhagic mass also remains in the differential but felt to be less likely. Trip Youssef MD Catheter Placement X-Ray 07/28/17 0000 Signed Impressions: Service Date/Time: July 15:18 - CONCLUSION: Uncomplicated PermaCath placement as above. Thang Tucker Jr., MD Renal Ultrasound 07/27/17 0000 Signed Impressions: Service Date/Time: Thursday, July 27, 2017 15:35 - CONCLUSION: 1. Status post right nephrectomy without significant mass in the right nephrectomy bed. 2. No obstructive left sided uropathy. 3. here are least 2 dominant anechoic simple appearing cysts in the left kidney. Please note that additional left-sided lesions noted on recent CT examination are not demonstrated in the current exam , likely technical. Again, consider MRI examination on outpatient basis for further characterization of several left renal lesions with indeterminate density particularly in the superior pole. Andrés Jiang MD Assessment and Plan Problem List: (1) ESRD (end stage renal disease) ICD Codes: N18.6 - End stage renal disease Status: Chronic Plan: Pt s/p PermCath placement today as AVF not matured. Given her progressive renal decline and overall clinical condition, we will be starting dialysis tomorrow with 2nd session Tuesday. Will tentatively be MWF thereafter. Will start on gentle IVF as she has not eaten or drank anything today and appetite poor. Encouraged Ensure or supplement even if she was not interest in food. Son present in room and both he and the patient are in agreement with plan. Medications should be adjusted for the patient's ESRD. Avoid gadolinium. (2) HTN (hypertension) ICD Codes: I10 - HTN (hypertension) Status: Chronic Plan: By hx, but quite hypotensive in house. All home BP meds held. Gentle IVF Will place PRN order for Midodrine. (3) Anemia ICD Codes: D64.9 - Anemia, unspecified Status: Chronic Plan: Epo with HD tomorrow (4) Intraparenchymal hematoma of brain ICD Codes: S06.360A - Traumatic hemorrhage of cerebrum, unspecified, without loss of consciousness, initial encounter Status: Chronic Plan: Still present but does not appear to be worsening as per reports. Will hold heparin with HD. (5) Afib ICD Codes: I48.91 - Afib Status: Chronic (6) DM (diabetes mellitus screen) ICD Codes: Z13.1 - DM (diabetes mellitus screen) Status: Chronic Plan: Mgmt as per primary Problem Qualifiers (1) HTN (hypertension): Qualified Codes: I10 - Essential (primary) hypertension (2) Intraparenchymal hematoma of brain: Qualified Codes: S06.349D - Traumatic hemorrhage of right cerebrum with loss of consciousness of unspecified duration, subsequent encounter (3) Afib: Qualified Codes: I48.2 - Chronic atrial fibrillation Rachel Edmonds Jul 28, 2017 19:21
[2017-07-28] MEDS: ATORVASTATIN 20 MG TAB PO SCH (20:36)
[2017-07-29] VITALS (11 sets, daily range): BP systolic 91–127; BP diastolic 53–62; PULSE 80–108; RESP 20–21; TEMP 97.7–98.5; O2SAT 95–100
[2017-07-29] MEDS: LEVOTHYROXINE SODIUM 100 MCG TAB PO SCH (05:37)
[2017-07-29 07:54] LABS: ALBUMIN 2.9 GM/DL (3.4-5.0); AST (GOT) 31 U/L (15-37); BICARBONATE 27.7 MEQ/L (21.0-32.0); BLOOD UREA NITROGEN 79 MG/DL (7-18); CALCIUM 9.1 MG/DL (8.5-10.1); CHLORIDE 102 MEQ/L (98-107); CREATININE 4.99 MG/DL (0.50-1.00); GLOMERULAR FILTRATION RATE 8 ML/MIN (>89); GLUCOSE,RANDOM 68 MG/DL (74-106); SODIUM (NA) 141 MEQ/L (136-145)
[2017-07-29 07:55] LABS: ALT (GPT) 25 U/L (10-53); HEMATOCRIT 28.2 % (35.0-46.0); HEMOGLOBIN 8.9 GM/DL (11.6-15.3); MEAN CELL VOLUME 91.6 FL (80.0-100.0); MEAN CORPUSCULAR HGB CONC 31.7 % (32.0-36.0); MEAN PLATELET VOLUME 8.2 FL (7.0-11.0); PLATELET COUNT 266 TH/MM3 (150-450); RED BLOOD COUNT 3.08 MIL/MM3 (4.00-5.30); RED CELL DISTRIBUTION WIDTH 21.3 % (11.6-17.2); WHITE BLOOD COUNT 9.6 TH/MM3 (4.0-11.0)
[2017-07-29 07:56] LABS: AUTOMATED NEUTROPHIL # 7.8 TH/MM3 (1.8-7.7); BASOPHIL # 0.1 TH/MM3 (0-0.2); BASOPHIL % 1.1 % (0.0-2.0); EOSINOPHIL % 0.2 % (0.0-4.0); LYMPH % 5.8 % (9.0-44.0); LYMPHOCYTE # 0.6 TH/MM3 (1.0-4.8); MONO % 11.9 % (0.0-8.0); MONOCYTE # 1.1 TH/MM3 (0-0.9)
[2017-07-29 07:57] LABS: ALKALINE PHOSPHATASE 183 U/L (45-117); TOTAL BILIRUBIN ADULT 0.3 MG/DL (0.2-1.0); TOTAL PROTEIN 6.1 GM/DL (6.4-8.2)
[2017-07-29] MEDS: INSULIN ASPART SUPPLEMENTAL SCALE SQ SCH ×4 (08:00→21:00)
[2017-07-29] MEDS: SODIUM CHLORIDE 0.9% FLUSH 10 ML FLUSH IV FLUSH SCH ×2 (08:35→22:06)
[2017-07-29] MEDS: PANTOPRAZOLE SOD 40 MG DELAYED RELEASE TAB PO SCH (08:36)
[2017-07-29] MEDS: LEFLUNOMIDE 20 MG TAB PO SCH (08:37)
[2017-07-29] MEDS: DOCUSATE SODIUM 50 MG/SENNA 8.6 MG TAB PO SCH ×2 (08:37→22:05)
[2017-07-29 10:20] LABS: HEPATITIS B SURFACE ANTIGEN NEGATIVE (NEGATIVE); HEPATITIS C AB IgG NEGATIVE (NEGATIVE)
[2017-07-29 10:27] LABS: HEPATITIS A AB IGM NEGATIVE (NEGATIVE); HEPATITIS B CORE AB IGM NEGATIVE (NEGATIVE)
--- NOTE | 2017-07-29 12:11 | HHI.FPPN ---
Subjective Remarks Patient seen and examined bedside this morning. Patient appears to be more groggy and altered than before. She is oriented to person place and time. She denies any current pain. She denies any swelling or shortness of breath. She denies any headache. No acute events overnight. No fever/chills. (Nusrat Quevedo MD R2) Objective Vitals Vital Signs Date Time Temp Pulse Resp B/P (MAP) Pulse Ox O2 Delivery O2 Flow Rate FiO2 07/29/17 08:00 98.5 96 21 94/60 (71) 95 07/29/17 08:00 Nasal Cannula 3.00 07/29/17 04:05 98.1 98 20 96/55 (69) 98 07/29/17 04:00 Nasal Cannula 3.00 07/29/17 04:00 91 07/29/17 00:38 97.7 84 20 91/53 (66) 97 07/29/17 00:00 Nasal Cannula 3.00 07/29/17 00:00 84 07/28/17 20:16 96 Nasal Cannula 4.00 07/28/17 20:00 96.5 95 18 106/56 (73) 97 07/28/17 20:00 99 07/28/17 20:00 Nasal Cannula 3.00 07/28/17 18:00 87 94/60 (71) 07/28/17 17:30 101 86/54 (65) 07/28/17 16:00 78 07/28/17 15:55 89 18 96/58 (71) 97 07/28/17 15:25 96 18 97/61 (73) 98 07/28/17 15:10 97.0 90 18 100/51 (67) 92 I/O 07/28/17 07/28/17 07/28/17 07/29/17 07/29/17 07/29/17 07:00 15:00 23:00 07:00 15:00 23:00 Intake Total 1000 ml Output Total 600 ml Balance 400 ml Intake IV Total 1000 ml Output Urine Total 600 ml Bladder Scan Volume Amount 403 ml # Voids 2 # Bowel Movements 2 (Nusrat Quevedo MD R2) Result Diagram: 07/29/17 0610 07/29/17 0610 Objective Remarks GENERAL: Well-nourished, well-developed elderly female patient in no acute distress. SKIN: Warm and dry. No rashes or lesions present. EYES: No scleral icterus. No conjunctival injection or drainage. Pupils equal, round, reactive to light and accommodation. Extraocular movements intact. THROAT: Moist mucous membranes. NECK: Supple, trachea midline. CARDIOVASCULAR: Regular rate and rhythm without murmurs, gallops, or rubs. Strong radial and pedal pulses. CHEST: Symmetric chest expansion with respiration. RESPIRATORY: Breath sounds clear to auscultation bilaterally. No accessory muscle use. No wheezes, rhonchi or rales. GASTROINTESTINAL: Abdomen soft, non-tender, nondistended. MUSCULOSKELETAL: No cyanosis. Trace lower extremity edema bilaterally. NEURO: Awake and alert. Cranial nerves II through XII grossly intact. PSYCH: Normal mood and affect. Normal speech. (Nusrat Quevedo MD R2) A/P Assessment and Plan Patient is an 87-year-old female with a past medical history significant for ESRD, recent intracranial hemorrhage, atrial fibrillation, diabetes, CHF, and hypertension who presented after being sent to the hospital by her film sorter for increasing creatinine, fatigue, and lower extremity edema, admitted for worsening renal function . Discharge Planning pending improvement in symptoms likely with dialysis, possible discharge after dialysis tomorrow with follow-up outpatient for dialysis (Nusrat Quevedo MD R2) Attending Attestation Patient seen and examined, discussed with Dr. Quevedo. I agree with assessment and management as documented and discussed with me. (Mallorie Carrasco MD) Problem List: (1) ESRD (end stage renal disease) ICD Codes: N18.6 - End stage renal disease Status: Chronic Plan: Worsening renal function. Creatinine 4.37 on admission, trending up to 4.99 today. Creatinine baseline per records is 2.6-3.8. Creatinine 2.6 as recently as Jul 09. Patient follows with film sorter Dr. Waite, who has consulted Patient to begin hemodialysis today, and have another session tomorrow, with dialysis tentatively Tuesday afterwards Continue EPO with HD Plan: - Avoid nephrotoxic agents - Consult nephrology- IR to place hemodialysis PermCath (2) CHF (congestive heart failure) ICD Codes: I50.9 - Heart failure, unspecified Status: Chronic Plan: Progressive SOB Last echo at [place] in 2011: Ejection fraction 55-60%, left atrium mildly dilated BNP today 641 on admission, trending up to 791 today likely secondary to gentle hydration overnight portable CXR normal compared to previous, no evidence of fluid overload on PE Hold hypertensive medications for now Hold diuretics for now\ Continue slow fluids of normal saline 50 mls per hour Repeat CXR today shows more prominent findings of patchy opacities in the LLL and probable small pleural effusion. (3) HTN (hypertension) ICD Codes: I10 - HTN (hypertension) Status: Chronic Plan: Admitted as hypotensive, Currently hypotensive. Hold home blood pressure medications and diuretics due to hypotension Continue to monitor BP (4) Intraparenchymal hematoma of brain ICD Codes: S06.360A - Traumatic hemorrhage of cerebrum, unspecified, without loss of consciousness, initial encounter Status: Chronic Plan: Patient is s/p fall on July 14 with subsequent intracranial bleed and hospitalization at [facility] for one week. 07/27 CT head: Focal hemorrhage and right frontal region, parenchymal hemorrhage , small amount of subarachnoid hemorrhage, vasogenic edema in right frontal lobe - Radiologist confirms that this may be due to old hemorrhage 07/[address]: right frontal intraparenchymal hemorrhage and adjacent vasogenic edema does not appear to have significantly changed. Hemorrhagic mass also remains in the differential but felt to be less likely. Continue to monitor neurologic status (5) Afib ICD Codes: I48.91 - Afib Status: Chronic Plan: A. fib on EKG Patient not on anticoagulation due to recent fall and TBI and HD Hold home metoprolol (6) Hypothyroidism ICD Codes: E03.9 - Hypothyroidism, unspecified Status: Chronic Plan: TSH wnl at 3.480 Continue home levothyroxine 100 g daily (7) DM (diabetes mellitus screen) ICD Codes: Z13.1 - DM (diabetes mellitus screen) Status: Chronic Plan: Hold home Tradjenta Bedside glucose ranging 73-143 Accu-Cheks with SSI (8) fen/ppx Status: Chronic Plan: Fluids: Encourage PO intake, careful with IV hydration due to CHF and ESRD Electrolytes: Continue to monitor and replete PRN Nutrition: Regular diet, encourage ensure supplement DVT prophylaxis: SCDs, chemical anticoagulation held for intracranial bleed (Nusrat Quevedo MD R2) Problem Qualifiers (1) CHF (congestive heart failure): Qualified Codes: I50.9 - Heart failure, unspecified (2) HTN (hypertension): Qualified Codes: I10 - Essential (primary) hypertension (3) Intraparenchymal hematoma of brain: Qualified Codes: S06.349D - Traumatic hemorrhage of right cerebrum with loss of consciousness of unspecified duration, subsequent encounter (4) Afib: Qualified Codes: I48.2 - Chronic atrial fibrillation (5) Hypothyroidism: Qualified Codes: E03.9 - Hypothyroidism, unspecified Nusrat Quevedo MD R2 Jul 29, 2017 12:11 Mallorie Carrasco MD Jul 29, 2017 14:54
--- NOTE | 2017-07-29 16:39 | HHI.NPPN ---
Subjective History of Present Illness The patient is an 87 yo [place] female who was advised by our office to come to the hospital for further evaluation of renal decline and fluid retention. She has been stage 4/5 for some time with a developing LUE AVF. She fell 2 weeks ago and sustained a SDH treated at [facility]. When she presented to the office for f/u yesterday, it was noted that her SCr had risen to 3.7 (baseline 2.5-2.7 ) and that she had a significant amount of pitting edema in lower extremities. She is seen today s/p PermCath placement as SCr mike again this AM to 4.61 with a eGFR of 9 and it is recommended that we initiate dialysis during this admission given her progressive decline. Son, Kash, present in room. The patient herself if quite drowsy as she just had PermCath placed. Interval History Pt deteriorating today. Very fatigued Coughing. She is seen on her first HD session today. (Rachel Edmonds) Review of Systems General Constitutional: Fatigue (Rachel Edmonds) Respiratory Lungs: SOB, Cough (Rachel Edmonds) Objective Data Data Vital Signs Date Time Temp Pulse Resp B/P (MAP) Pulse Ox O2 Delivery O2 Flow Rate FiO2 07/29/17 12:07 97.9 99 20 107/62 (77) 95 07/29/17 12:00 87 07/29/17 08:00 98.5 96 21 94/60 (71) 95 07/29/17 08:00 Nasal Cannula 3.00 07/29/17 04:05 98.1 98 20 96/55 (69) 98 07/29/17 04:00 Nasal Cannula 3.00 07/29/17 04:00 91 07/29/17 00:38 97.7 84 20 91/53 (66) 97 07/29/17 00:00 Nasal Cannula 3.00 07/29/17 00:00 84 07/28/17 20:16 96 Nasal Cannula 4.00 07/28/17 20:00 96.5 95 18 106/56 (73) 97 07/28/17 20:00 99 07/28/17 20:00 Nasal Cannula 3.00 07/28/17 18:00 87 94/60 (71) 07/28/17 17:30 101 86/54 (65) (Rachel Edmonds) -: 07/29/17 0610 07/29/17 0610 Imaging Last Impressions Chest X-Ray 07/28/17 0600 Signed Impressions: Service Date/Time: July 10:11 - CONCLUSION: Patchy opacities left lower lobe and probable small pleural effusion. Findings are more prominent on current study. Cardiomegaly. Trip Youssef MD Head CT 07/28/17 0000 Signed Impressions: Service Date/Time: July 10:18 - CONCLUSION: 1. Right frontal intraparenchymal hemorrhage and adjacent vasogenic edema does not appear to have significantly changed. Hemorrhagic mass also remains in the differential but felt to be less likely. Trip Youssef MD Catheter Placement X-Ray 07/28/17 0000 Signed Impressions: Service Date/Time: July 15:18 - CONCLUSION: Uncomplicated PermaCath placement as above. Thang Tucker Jr., MD Renal Ultrasound 07/27/17 0000 Signed Impressions: Service Date/Time: Thursday, July 27, 2017 15:35 - CONCLUSION: 1. Status post right nephrectomy without significant mass in the right nephrectomy bed. 2. No obstructive left sided uropathy. 3. here are least 2 dominant anechoic simple appearing cysts in the left kidney. Please note that additional left-sided lesions noted on recent CT examination are not demonstrated in the current exam , likely technical. Again, consider MRI examination on outpatient basis for further characterization of several left renal lesions with indeterminate density particularly in the superior pole. Andrés Jiang MD Medication Review Current Medications Medications (Trade) Dose Ordered Sig/Shahana Route Start Time Stop Time Status Last Admin (Synthroid) 100 mcg DAILY@0600 PO 07/28/17 06:00 07/29/17 05:37 (Timoptic 0.5% Opth Soln) 1 drop BID EACH EYE 07/27/17 14:30 Future Hold (Protonix) 40 mg DAILY PO 07/28/17 09:00 07/29/17 08:36 Patient Own Medication PT OWN MED: (Febuxos... DAILY PO 07/28/17 09:00 Future Hold (Arava) 20 mg MoWeFr@0900 PO 07/27/17 18:00 07/29/17 08:37 (Lipitor) 20 mg HS PO 07/27/17 21:00 07/28/17 20:36 (NS Flush) 2 ml UNSCH PRN IV FLUSH 07/27/17 14:45 (NS Flush) 2 ml BID IV FLUSH 07/27/17 21:00 07/29/17 08:35 (Tylenol) 650 mg Q4H PRN PO 07/27/17 14:45 (Narcan Inj) 0.4 mg UNSCH PRN IV PUSH 07/27/17 14:45 (Maira-Colace) 1 tab BID PO 07/27/17 21:00 07/28/17 20:36 (Milk Of Magnesia Liq) 30 ml Q12H PRN PO 07/27/17 14:45 (Senokot) 17.2 mg Q12H PRN PO 07/27/17 14:45 (Dulcolax Supp) 10 mg DAILY PRN RECTAL 07/27/17 14:45 (Lactulose Liq) 30 ml DAILY PRN PO 07/27/17 14:45 (D50w (Vial) Inj) 50 ml UNSCH PRN IV PUSH 07/27/17 15:30 07/27/17 21:00 (Glucagon Inj) 1 mg UNSCH PRN OTHER 07/27/17 15:30 (NovoLOG SUPPLEMENTAL SCALE) 1 ACHS SLIDING SCALE SQ 07/27/17 17:00 (NS Flush) UNSCH PRN IV FLUSH 07/28/17 15:00 (Heparin Inj) UNSCH PRN IV FLUSH 07/28/17 15:00 Sodium Chloride 1,000 ml @ 50 mls/hr Q20H IV 07/28/17 20:00 07/28/17 20:00 Sodium Chloride 1,000 ml @ 0 mls/hr Q0M PRN OTHER 07/28/17 18:42 Sodium Chloride 1,000 ml @ 200 mls/hr Q5H PRN IV 07/28/17 18:42 Sodium Chloride 1,000 ml @ 0 mls/hr Q0M PRN OTHER 07/28/17 18:42 Albumin Human 100 ml @ 60 mls/hr UNSCH PRN IV 07/28/17 18:45 (NS Flush) 5 ml UNSCH PRN IV FLUSH 07/28/17 18:45 (Heparin Inj) UNSCH PRN .XX 07/28/17 18:45 (Gentamicin Inj) 20 mg UNSCH PRN OTHER 07/28/17 18:45 (Zofran Inj) 4 mg UNSCH PRN IV PUSH 07/28/17 18:45 (Tylenol) 650 mg UNSCH PRN PO 07/28/17 18:45 (Benadryl) 25 mg UNSCH PRN PO 07/28/17 18:45 (Nitrostat Sl) 0.4 mg UNSCH PRN SL 07/28/17 18:45 (Catapres) 0.1 mg UNSCH PRN PO 07/28/17 18:45 (Gelfoam 12 Mm/7 Mm Top) 1 foam UNSCH PRN TOP 07/28/17 18:45 (Epogen Inj) 10,000 units WITH DIALYSIS IV PUSH 07/28/17 19:30 (Rachel Edmonds PA) Physical Exam General Appearance: No Acute Distress (Rachel Edmonds) Pulmonary Resp Exam: Decreased Bases, Diminished Breath Sounds (Rachel Edmonds PA) Cardiology CV Exam: Regular (Rachel Edmonds) Gastrointestinal/Abdomen GI Exam: Soft, Non-Tender (Rachel Edmonds) Integumentary Skin Exam: Clear, Warm (Rachel Edmonds) Extremeties Extremities Exam: Trace Edema (Rachel Edmonds) Assessment/Plan Problem List: (1) ESRD (end stage renal disease) ICD Codes: N18.6 - End stage renal disease Status: Chronic Plan: Seen during 1st HD today. Will plan on HD again tomorrow. Medications should be adjusted for the patient's ESRD. Avoid gadolinium. (2) HTN (hypertension) ICD Codes: I10 - HTN (hypertension) Status: Chronic Plan: Continue with gentle IVF Midrodrine for hypotension (3) Anemia ICD Codes: D64.9 - Anemia, unspecified Status: Chronic Plan: Epo with HD tomorrow (4) Intraparenchymal hematoma of brain ICD Codes: S06.360A - Traumatic hemorrhage of cerebrum, unspecified, without loss of consciousness, initial encounter Status: Chronic Plan: Still present but does not appear to be worsening as per reports. Will hold heparin with HD. (5) Afib ICD Codes: I48.91 - Afib Status: Chronic (6) DM (diabetes mellitus screen) ICD Codes: Z13.1 - DM (diabetes mellitus screen) Status: Chronic Plan: Mgmt as per primary (7) Dyspnea ICD Codes: R06.00 - Dyspnea, unspecified Plan: Would recommend pulmonary toileting Will defer to primary (Rachel Edmonds) Plan Patient was seen during her dialysis treatment. Tolerating the session currently. Dialysis catheter appears to be working well. Hopefully the patient's clinical status will improve now that dialysis has been initiated but this remains be determined. The exam, history, and the medical decision-making described in the above note were completed with the assistance of the PASevero. I reviewed and agree with the findings presented. I attest that I had a [id number] encounter with the patient on the same day, and personally performed and documented my assessment and findings in the medical record. (Stephan Waite MD) Problem Qualifiers (1) HTN (hypertension): Qualified Codes: I10 - Essential (primary) hypertension (2) Intraparenchymal hematoma of brain: Qualified Codes: S06.349D - Traumatic hemorrhage of right cerebrum with loss of consciousness of unspecified duration, subsequent encounter (3) Afib: Qualified Codes: I48.2 - Chronic atrial fibrillation Rachel Edmonds Jul 29, 2017 16:38 Stephan Waite MD Jul 29, 2017 17:41
[2017-07-29] MEDS: GENTAMICIN SULFATE 20 MG/2 ML VIAL OTHER PRN (17:46)
[2017-07-29] MEDS: HEPARIN SODIUM - IV 10,000 UNITS/10 ML VIAL PRN (17:46)
[2017-07-29] MEDS: EPOETIN ALFA 10,000 UNITS/ML VIAL IV PUSH SCH (17:47)
[2017-07-29] MEDS: SODIUM CHLOR 0.9% 1000 ML INJ 1,000 ML IV SCH (17:53)
[2017-07-29] MEDS: MIDODRINE 5 MG TAB PO SCH (17:59)
[2017-07-29] MEDS: ATORVASTATIN 20 MG TAB PO SCH (22:05)
[2017-07-30] VITALS (7 sets, daily range): BP systolic 94–107; BP diastolic 55–63; PULSE 92–112; RESP 16–21; TEMP 97.2–98.5; O2SAT 99–100
[2017-07-30] MEDS: LEVOTHYROXINE SODIUM 100 MCG TAB PO SCH (05:29)
[2017-07-30] MEDS: MIDODRINE 5 MG TAB PO SCH ×3 (05:29→17:00)
[2017-07-30] MEDS: INSULIN ASPART SUPPLEMENTAL SCALE SQ SCH ×4 (08:00→21:00)
[2017-07-30 08:06] LABS: AUTOMATED NEUTROPHIL # 9.3 TH/MM3 (1.8-7.7); BASOPHIL # 0.1 TH/MM3 (0-0.2); BASOPHIL % 0.8 % (0.0-2.0); EOSINOPHIL % 0.2 % (0.0-4.0); HEMATOCRIT 29.7 % (35.0-46.0); HEMOGLOBIN 9.4 GM/DL (11.6-15.3); LYMPH % 5.1 % (9.0-44.0); LYMPHOCYTE # 0.6 TH/MM3 (1.0-4.8); MEAN CELL VOLUME 92.9 FL (80.0-100.0); MEAN CORPUSCULAR HEMOGLOBIN 29.2 PG (27.0-34.0); MEAN CORPUSCULAR HGB CONC 31.5 % (32.0-36.0); MEAN PLATELET VOLUME 7.9 FL (7.0-11.0); MONO % 10.7 % (0.0-8.0); MONOCYTE # 1.2 TH/MM3 (0-0.9); NEUT % 83.2 % (16.0-70.0); PLATELET COUNT 269 TH/MM3 (150-450); RED CELL DISTRIBUTION WIDTH 21.5 % (11.6-17.2); WHITE BLOOD COUNT 11.2 TH/MM3 (4.0-11.0)
[2017-07-30 08:37] LABS: ALBUMIN 2.9 GM/DL (3.4-5.0); ALKALINE PHOSPHATASE 194 U/L (45-117); ALT (GPT) 23 U/L (10-53); AST (GOT) 31 U/L (15-37); BICARBONATE 29.5 MEQ/L (21.0-32.0); BLOOD UREA NITROGEN 54 MG/DL (7-18); CALCIUM 8.4 MG/DL (8.5-10.1); CHLORIDE 104 MEQ/L (98-107); CREATININE 3.86 MG/DL (0.50-1.00); GLOMERULAR FILTRATION RATE 11 ML/MIN (>89); GLUCOSE,RANDOM 87 MG/DL (74-106); SODIUM (NA) 143 MEQ/L (136-145); TOTAL BILIRUBIN ADULT 0.3 MG/DL (0.2-1.0); TOTAL PROTEIN 6.4 GM/DL (6.4-8.2)
[2017-07-30] MEDS: DOCUSATE SODIUM 50 MG/SENNA 8.6 MG TAB PO SCH ×2 (09:20→21:15)
[2017-07-30] MEDS: PANTOPRAZOLE SOD 40 MG DELAYED RELEASE TAB PO SCH (09:20)
[2017-07-30] MEDS: SODIUM CHLORIDE 0.9% FLUSH 10 ML FLUSH IV FLUSH SCH ×2 (09:20→21:00)
--- NOTE | 2017-07-30 12:45 | HHI.FPPN ---
Subjective Remarks No acute events overnight. Blood pressures have been in the 90s to 100s systolic , heart rate in the 100s. Patient was asleep during the exam this morning. Patient's son is present and questions were answered regarding dialysis. (Facundo Stern MD R1) Objective Vitals Vital Signs Date Time Temp Pulse Resp B/P (MAP) Pulse Ox O2 Delivery O2 Flow Rate FiO2 07/30/17 12:00 97.2 102 21 104/59 (74) 99 07/30/17 10:15 100 Nasal Cannula 3.00 07/30/17 08:00 97.5 111 21 107/56 (73) 100 07/30/17 04:00 97.3 102 20 94/55 (68) 99 07/30/17 04:00 107 07/30/17 00:00 105 07/30/17 00:00 98.5 103 20 100/63 (75) 100 07/29/17 21:00 Nasal Cannula 3.00 07/29/17 21:00 98 07/29/17 20:00 97.9 80 20 101/57 (72) 100 07/29/17 19:45 99 Nasal Cannula 3.00 07/29/17 18:00 98.0 108 21 127/58 (81) 100 I/O 07/29/17 07/29/17 07/29/17 07/30/17 07/30/17 07/30/17 07:00 15:00 23:00 07:00 15:00 23:00 Intake Total 1140 ml 240 ml Output Total 500 ml 2 ml Balance 640 ml 238 ml Intake Oral 140 ml 240 ml IV Total 1000 ml Stool Total 2 ml Hemodialysis 500 ml # Voids 2 3 3 # Bowel Movements 2 2 (Facundo Stern MD R1) Result Diagram: 07/30/17 0726 07/30/17 0726 Objective Remarks GENERAL: Well-nourished, well-developed elderly female sleeping comfortably in no acute distress. SKIN: Warm and dry. No rashes or lesions present. EYES: No scleral icterus. No conjunctival injection or drainage. Pupils equal, round, reactive to light and accommodation. Extraocular movements intact. THROAT: Moist mucous membranes. NECK: Supple, trachea midline. CARDIOVASCULAR: Regular rate and rhythm without murmurs, gallops, or rubs. Strong radial and pedal pulses. CHEST: Symmetric chest expansion with respiration. RESPIRATORY: Breath sounds clear to auscultation bilaterally. No accessory muscle use. No wheezes, rhonchi or rales. GASTROINTESTINAL: Abdomen soft, non-tender, nondistended. MUSCULOSKELETAL: No cyanosis. Trace lower extremity edema bilaterally. NEURO: No focal abnormalities appreciated. PSYCH: Normal mood and affect. (Facundo Stern MD R1) A/P Assessment and Plan Patient is an 87-year-old female with a past medical history significant for ESRD, recent intracranial hemorrhage, atrial fibrillation, diabetes, CHF, and hypertension who presented after being sent to the hospital by her game programmer for increasing creatinine, fatigue, and lower extremity edema, admitted for worsening renal function . Discharge Planning pending improvement in symptoms likely with dialysis, we will discharge once outpatient dialysis has been arranged (Facundo Stern MD R1) Attending Attestation Patient seen, examined, and discussed with Dr. Stern. I agree with assessment and management as documented and discussed with me. Pt to have dialysis session #2 today. Await determination of outpatient dialysis. (Mallorie Carrasco MD) Problem List: (1) ESRD (end stage renal disease) ICD Codes: N18.6 - End stage renal disease Status: Chronic Plan: Worsening renal function. Creatinine 4.37 on admission, 3.86 today after Creatinine baseline per records is 2.6-3.8. Creatinine 2.6 as recently as Jul 09. Patient follows with game programmer Dr. Waite, who has consulted Patient had dialysis on 07/29, 11 another session on , with dialysis tentatively Tuesday afterwards Continue EPO with HD Plan: - Avoid nephrotoxic agents - Appreciate nephrology's recommendations (2) CHF (congestive heart failure) ICD Codes: I50.9 - Heart failure, unspecified Status: Chronic Plan: Progressive SOB Last echo at [place] in 2010: Ejection fraction 55-60%, left atrium mildly dilated BNP today 641 on admission, trended up to 791 on 07/28 No evidence of fluid overload on PE Hold hypertensive medications for now Hold diuretics for now Continue slow fluids of normal saline 50 mls per hour Repeat CXR on 05/28 shows more prominent findings of patchy opacities in the LLL and probable small pleural effusion. (3) HTN (hypertension) ICD Codes: I10 - HTN (hypertension) Status: Chronic Plan: Admitted as hypotensive, systolic blood pressures overnight in the 90s and 100s Hold home blood pressure medications and diuretics due to hypotension Continue to monitor BP Midodrine for hypotension (4) Intraparenchymal hematoma of brain ICD Codes: S06.360A - Traumatic hemorrhage of cerebrum, unspecified, without loss of consciousness, initial encounter Status: Chronic Plan: Patient is s/p fall on July 14 with subsequent intracranial bleed and hospitalization at [facility] for one week. 07/27 CT head: Focal hemorrhage and right frontal region, parenchymal hemorrhage , small amount of subarachnoid hemorrhage, vasogenic edema in right frontal lobe - Radiologist confirms that this may be due to old hemorrhage 07/[address]: right frontal intraparenchymal hemorrhage and adjacent vasogenic edema does not appear to have significantly changed. Hemorrhagic mass also remains in the differential but felt to be less likely. Continue to monitor neurologic status Holding heparin (5) Glaucoma ICD Codes: H40.9 - Unspecified glaucoma Plan: Patient with a known history of glaucoma Holding home Timolol ophthalmic solution as this can contribute to hypotension Will need follow-up with tailor apprentice as outpatient (6) Afib ICD Codes: I48.91 - Afib Status: Chronic Plan: A. fib on EKG Patient not on anticoagulation due to recent fall and TBI and HD Hold home metoprolol (7) Hypothyroidism ICD Codes: E03.9 - Hypothyroidism, unspecified Status: Chronic Plan: TSH wnl at 3.480 Continue home levothyroxine 100 g daily (8) DM (diabetes mellitus screen) ICD Codes: Z13.1 - DM (diabetes mellitus screen) Status: Chronic Plan: Hold home Tradjenta Bedside glucose ranging 73-143 Accu-Cheks with SSI (9) fen/ppx Status: Chronic Plan: Fluids: Encourage PO intake, careful with IV hydration due to CHF and ESRD Electrolytes: Continue to monitor and replete PRN Nutrition: Regular diet, encourage ensure supplement DVT prophylaxis: SCDs, chemical anticoagulation held for intracranial bleed (Facundo Stern MD R1) Problem Qualifiers (1) CHF (congestive heart failure): Qualified Codes: I50.9 - Heart failure, unspecified (2) HTN (hypertension): Qualified Codes: I10 - Essential (primary) hypertension (3) Intraparenchymal hematoma of brain: Qualified Codes: S06.349D - Traumatic hemorrhage of right cerebrum with loss of consciousness of unspecified duration, subsequent encounter (4) Afib: Qualified Codes: I48.2 - Chronic atrial fibrillation (5) Hypothyroidism: Qualified Codes: E03.9 - Hypothyroidism, unspecified Facundo Stern MD R1 Jul 30, 2017 12:45 Mallorie Carrasco MD Jul 30, 2017 15:20
--- NOTE | 2017-07-30 15:21 | HHI.NPPN ---
Subjective History of Present Illness The patient is an 87 yo [place] female who was advised by our office to come to the hospital for further evaluation of renal decline and fluid retention. She has been stage 4/5 for some time with a developing LUE AVF. She fell 2 weeks ago and sustained a SDH treated at [facility]. When she presented to the office for f/u yesterday, it was noted that her SCr had risen to 3.7 (baseline 2.5-2.7 ) and that she had a significant amount of pitting edema in lower extremities. She is seen today s/p PermCath placement as SCr mike again this AM to 4.61 with a eGFR of 9 and it is recommended that we initiate dialysis during this admission given her progressive decline. Son, Kash, present in room. The patient herself if quite drowsy as she just had PermCath placed. Interval History Patient was seen during her dialysis session today. A dialysis access appears to be working well. Patient appears to be a bit more alert today but still very debilitated and weak in appearance. Review of Systems General Constitutional: Fatigue Respiratory Lungs: SOB, Cough Objective Data Data Vital Signs Date Time Temp Pulse Resp B/P (MAP) Pulse Ox O2 Delivery O2 Flow Rate FiO2 07/30/17 12:00 97.2 102 21 104/59 (74) 99 07/30/17 10:15 100 Nasal Cannula 3.00 07/30/17 08:00 97.5 111 21 107/56 (73) 100 07/30/17 04:00 97.3 102 20 94/55 (68) 99 07/30/17 04:00 107 07/30/17 00:00 105 07/30/17 00:00 98.5 103 20 100/63 (75) 100 07/29/17 21:00 Nasal Cannula 3.00 07/29/17 21:00 98 07/29/17 20:00 97.9 80 20 101/57 (72) 100 07/29/17 19:45 99 Nasal Cannula 3.00 07/29/17 18:00 98.0 108 21 127/58 (81) 100 -: 07/30/17 0726 07/30/17 0726 Physical Exam General Appearance: No Acute Distress, Malnourished Pulmonary Resp Exam: Decreased Bases, Diminished Breath Sounds Cardiology CV Exam: Regular Gastrointestinal/Abdomen GI Exam: Soft, Non-Tender Integumentary Skin Exam: Clear, Warm Extremeties Extremities Exam: Pitting Edema (one plus pitting edema presacral area and hips.) Assessment/Plan Discussed Condition With: Patient Problem List: (1) ESRD (end stage renal disease) ICD Codes: N18.6 - End stage renal disease Status: Chronic Plan: Renal indices have improved with dialysis and should improve further with dialysis again today. She does appear to have some evidence of fluid retention today and will try to ultrafiltrate about 1500 cc to improve her volume status. Patient's overall prognosis senior care appears to be guarded. Remains be determined whether not her overall condition and quality of life will improve with dialytic support. Medications should be adjusted for the patient's ESRD. Avoid gadolinium. (2) HTN (hypertension) ICD Codes: I10 - HTN (hypertension) Status: Chronic Plan: Continue with gentle IVF Midrodrine for hypotension (3) Anemia ICD Codes: D64.9 - Anemia, unspecified Status: Chronic Plan: Continue with Epogen. (4) Intraparenchymal hematoma of brain ICD Codes: S06.360A - Traumatic hemorrhage of cerebrum, unspecified, without loss of consciousness, initial encounter Status: Chronic Plan: Still present but does not appear to be worsening as per reports. Will hold heparin with HD. (5) Afib ICD Codes: I48.91 - Afib Status: Chronic (6) DM (diabetes mellitus screen) ICD Codes: Z13.1 - DM (diabetes mellitus screen) Status: Chronic Plan: Mgmt as per primary (7) Dyspnea ICD Codes: R06.00 - Dyspnea, unspecified Plan: Would recommend pulmonary toileting Will defer to primary Problem Qualifiers (1) HTN (hypertension): Qualified Codes: I10 - Essential (primary) hypertension (2) Intraparenchymal hematoma of brain: Qualified Codes: S06.349D - Traumatic hemorrhage of right cerebrum with loss of consciousness of unspecified duration, subsequent encounter (3) Afib: Qualified Codes: I48.2 - Chronic atrial fibrillation Stephan Waite MD Jul 30, 2017 15:21
[2017-07-30] MEDS: SODIUM CHLOR 0.9% 1000 ML INJ 1,000 ML IV SCH (21:14)
[2017-07-30] MEDS: ATORVASTATIN 20 MG TAB PO SCH (21:15)
[2017-07-31] VITALS (8 sets, daily range): BP systolic 94–128; BP diastolic 45–83; PULSE 90–138; RESP 16–21; TEMP 97.1–98.5; O2SAT 92–100
[2017-07-31] MEDS: LEVOTHYROXINE SODIUM 100 MCG TAB PO SCH (05:23)
[2017-07-31] MEDS: MIDODRINE 5 MG TAB PO SCH ×3 (05:25→17:11)
[2017-07-31 07:24] LABS: AUTOMATED NEUTROPHIL # 9.6 TH/MM3 (1.8-7.7); BASOPHIL # 0.1 TH/MM3 (0-0.2); BASOPHIL % 0.9 % (0.0-2.0); EOSINOPHIL % 0.4 % (0.0-4.0); HEMATOCRIT 31.4 % (35.0-46.0); HEMOGLOBIN 9.7 GM/DL (11.6-15.3); LYMPH % 4.3 % (9.0-44.0); LYMPHOCYTE # 0.5 TH/MM3 (1.0-4.8); MEAN CELL VOLUME 93.9 FL (80.0-100.0); MEAN CORPUSCULAR HGB CONC 30.9 % (32.0-36.0); MEAN PLATELET VOLUME 7.7 FL (7.0-11.0); MONO % 10.3 % (0.0-8.0); MONOCYTE # 1.2 TH/MM3 (0-0.9); NEUT % 84.1 % (16.0-70.0); PLATELET COUNT 241 TH/MM3 (150-450); RED BLOOD COUNT 3.35 MIL/MM3 (4.00-5.30); RED CELL DISTRIBUTION WIDTH 22.7 % (11.6-17.2); WHITE BLOOD COUNT 11.4 TH/MM3 (4.0-11.0)
[2017-07-31 07:25] LABS: BICARBONATE 29.1 MEQ/L (21.0-32.0); CALCIUM 8.5 MG/DL (8.5-10.1); CREATININE 3.37 MG/DL (0.50-1.00)
[2017-07-31] MEDS: INSULIN ASPART SUPPLEMENTAL SCALE SQ SCH ×4 (08:00→21:15)
[2017-07-31] MEDS: DOCUSATE SODIUM 50 MG/SENNA 8.6 MG TAB PO SCH ×2 (08:51→21:00)
[2017-07-31] MEDS: PANTOPRAZOLE SOD 40 MG DELAYED RELEASE TAB PO SCH (08:52)
[2017-07-31] MEDS: SODIUM CHLORIDE 0.9% FLUSH 10 ML FLUSH IV FLUSH SCH ×2 (08:53→21:00)
[2017-07-31 09:29] LABS: BASOPHILS 2 % (0-2); CORRECTED NUCLEATED RBC 3 /100 WBC (0-0); LYMPHOCYTES 4 % (9-44); METAMYELOCYTES 1 % (0-1); MONOCYTES 4 % (0-8); NEUTROPHIL # MANUAL DIFF 10.1 TH/MM3 (1.8-7.7); NUCLEATED RED BLOOD CELL 3 (0-0); POLYS (SEG NEUTROPHILS) 88 % (16-70)
[2017-07-31 09:30] LABS: OVALOCYTES 2+ (NORMAL)
--- NOTE | 2017-07-31 09:40 | HHI.FPPN ---
Subjective Remarks Patient seen and examined bedside this morning. There is no family member in the room at this time. Patient states that she feels more alert since she has started dialysis. She states she does not remember a whole lot from before she started dialysis. She is mostly in bed but she does get help to ambulate by nursing staff. She denies any increased swelling or shortness of breath. She denies any chest pain or dizziness. (Nusrat Quevedo MD R2) Objective Vitals Vital Signs Date Time Temp Pulse Resp B/P (MAP) Pulse Ox O2 Delivery O2 Flow Rate FiO2 07/31/17 08:01 97.2 119 20 101/56 (71) 95 07/31/17 04:00 97.2 113 16 101/53 (69) 99 07/31/17 04:00 113 07/31/17 00:00 96 07/31/17 00:00 97.1 101 16 109/58 (75) 99 07/30/17 20:00 97.6 107 16 106/57 (73) 99 07/30/17 20:00 112 07/30/17 20:00 96 Nasal Cannula 3.00 07/30/17 17:15 97.3 105 21 102/57 (72) 100 07/30/17 12:00 97.2 102 21 104/59 (74) 99 07/30/17 10:15 100 Nasal Cannula 3.00 I/O 07/30/17 07/30/17 07/30/17 07/31/17 07/31/17 07/31/17 07:00 15:00 23:00 07:00 15:00 23:00 Intake Total 240 ml 140 ml 550 ml Output Total 2 ml 1500 ml 2 ml Balance 238 ml -1360 ml 548 ml Intake Oral 240 ml 140 ml IV Total 550 ml Output Urine Total 2 ml Stool Total 2 ml Hemodialysis 1500 ml Bladder Scan Volume Amount 24 ml # Voids 3 1 # Bowel Movements 0 1 (Nusrat Quevedo MD R2) Result Diagram: 07/31/17 0549 07/31/17 0549 Objective Remarks GENERAL: Well-nourished, well-developed elderly female in bed comfortably in no acute distress. SKIN: Warm and dry. No rashes or lesions present. EYES: No scleral icterus. No conjunctival injection or drainage. Pupils equal, round, reactive to light and accommodation. Extraocular movements intact. THROAT: Moist mucous membranes. NECK: Supple, trachea midline. CARDIOVASCULAR: Regular rate and rhythm without murmurs, gallops, or rubs. Strong radial and pedal pulses. CHEST: Symmetric chest expansion with respiration. RESPIRATORY: Breath sounds clear to auscultation bilaterally. No accessory muscle use. No wheezes, rhonchi or rales. GASTROINTESTINAL: Abdomen soft, non-tender, nondistended. MUSCULOSKELETAL: No cyanosis. Trace lower extremity edema bilaterally. NEURO: No focal abnormalities appreciated. PSYCH: Normal mood and affect. (Nusrat Quevedo MD R2) A/P Assessment and Plan Patient is an 87-year-old female with a past medical history significant for ESRD, recent intracranial hemorrhage, atrial fibrillation, diabetes, CHF, and hypertension who presented after being sent to the hospital by her boring inspector for increasing creatinine, fatigue, and lower extremity edema, admitted for worsening renal function . Patient was started on dialysis by boring inspector Dr. Waite Discharge Planning pending improvement in symptoms likely with dialysis, we will discharge once outpatient dialysis has been arranged (Nusrat Quevedo MD R2) Attending Attestation Patient seen and examined, discussed with resident team. I agree with assessment and management as documented and discussed with me. Pt with diarrhea. Stool positive for C Diff. Initiate flagyl. (Mallorie Carrasco MD) Problem List: (1) ESRD (end stage renal disease) ICD Codes: N18.6 - End stage renal disease Status: Chronic Plan: Worsening renal function. Creatinine 4.37 on admission, 3.37 today improvement after dialysis Creatinine baseline per records is 2.6-3.8. Creatinine 2.6 as recently as Jul 09. Patient follows with boring inspector Dr. Waite, who has consulted - Continue to follow renal function, with expectation of continued improvement - Overall prognosis appears to be guarded, unsure of if quality of life will be improved with dialysis Patient had dialysis on 07/29, 11 another session on 07/30, with dialysis tentatively Tuesday afterwards Continue EPO with HD Plan: - Avoid nephrotoxic agents - Appreciate nephrology's recommendations (2) CHF (congestive heart failure) ICD Codes: I50.9 - Heart failure, unspecified Status: Chronic Plan: Progressive SOB, borderline hypotension Last echo at [facility] in 2011: Ejection fraction 55-60%, left atrium mildly dilated BNP 641 on admission, trended up to 791 on 07/28 No evidence of fluid overload on PE, no pitting edema Hold hypertensive medications for now Hold diuretics for now Repeat CXR on 05/28 shows more prominent findings of patchy opacities in the LLL and probable small pleural effusion. (3) HTN (hypertension) ICD Codes: I10 - HTN (hypertension) Status: Chronic Plan: Admitted as hypotensive, systolic blood pressures overnight in the 90s and 100s Hold home blood pressure medications and diuretics due to hypotension Continue to monitor BP Midodrine for hypotension 3 times a day (4) Intraparenchymal hematoma of brain ICD Codes: S06.360A - Traumatic hemorrhage of cerebrum, unspecified, without loss of consciousness, initial encounter Status: Chronic Plan: Patient is s/p fall on July 14 with subsequent intracranial bleed and hospitalization at [place] for one week. 07/27 CT head: Focal hemorrhage and right frontal region, parenchymal hemorrhage , small amount of subarachnoid hemorrhage, vasogenic edema in right frontal lobe - Radiologist confirms that this may be due to old hemorrhage 07/[address]: right frontal intraparenchymal hemorrhage and adjacent vasogenic edema does not appear to have significantly changed. Hemorrhagic mass also remains in the differential but felt to be less likely. Continue to monitor neurologic status Heparin with dialysis (5) Glaucoma ICD Codes: H40.9 - Unspecified glaucoma Plan: Patient with a known history of glaucoma Holding home Timolol ophthalmic solution as this can contribute to hypotension Will need follow-up with marketing designer as outpatient (6) Afib ICD Codes: I48.91 - Afib Status: Chronic Plan: A. fib on EKG Patient not on a daily anticoagulation due to recent fall and TBI and HD Continue heparin when necessary with dialysis Hold home metoprolol (7) C. difficile diarrhea ICD Codes: A04.72 - Enterocolitis due to Clostridium difficile, not specified as recurrent Status: Acute Plan: Diarrhea episode x 2 per nursing C.Diff positive on 07/31/17 Start Flagyl 500mg PO q8hr (07/31 - 08/10) Add probiotics (8) Hypothyroidism ICD Codes: E03.9 - Hypothyroidism, unspecified Status: Chronic Plan: TSH wnl at 3.480 Continue home levothyroxine 100 g daily (9) DM (diabetes mellitus screen) ICD Codes: Z13.1 - DM (diabetes mellitus screen) Status: Chronic Plan: Hold home Tradjenta Bedside glucose ranging 73-143 Accu-Cheks with SSI (10) fen/ppx Status: Chronic Plan: Fluids: Encourage PO intake, careful with IV hydration due to CHF and ESRD Electrolytes: Continue to monitor and replete PRN Nutrition: Regular diet, encourage ensure supplement DVT prophylaxis: SCDs, daily chemical anticoagulation held for intracranial bleed (Nusrat Quevedo MD R2) Problem Qualifiers (1) CHF (congestive heart failure): Qualified Codes: I50.9 - Heart failure, unspecified (2) HTN (hypertension): Qualified Codes: I10 - Essential (primary) hypertension (3) Intraparenchymal hematoma of brain: Qualified Codes: S06.349D - Traumatic hemorrhage of right cerebrum with loss of consciousness of unspecified duration, subsequent encounter (4) Glaucoma: Qualified Codes: H40.9 - Unspecified glaucoma (5) Afib: Qualified Codes: I48.2 - Chronic atrial fibrillation (6) Hypothyroidism: Qualified Codes: E03.9 - Hypothyroidism, unspecified Nusrat Quevedo MD R2 Jul 31, 2017 09:40 Mallorie Carrasco MD Aug 01, 2017 16:31
[2017-07-31] MEDS ORDERED: LACTOBACILLUS ACIDOPHILUS 1 GM PACKET PO ONE (13:15)
[2017-07-31] MEDS: METOPROLOL TARTRATE 25 MG TAB PO SCH ×2 (15:03→21:00)
[2017-07-31] MEDS: metroNIDAZOLE 500 MG TAB PO SCH (17:11)
[2017-07-31] MEDS ORDERED: metroNIDAZOLE 500 MG TAB PO SCH (18:00)
[2017-07-31] MEDS: ATORVASTATIN 20 MG TAB PO SCH (21:13)
[2017-08-01] VITALS: BP 121/57; PULSE 121; PULSE 126; RESP 24; TEMP 97.4; O2SAT 93
[2017-08-01] MEDS ORDERED: BENZONATATE 100 MG CAP PO PRN (02:30)
[2017-08-01 04:00] VITALS: BP 120/70; PULSE 116; PULSE 127; RESP 24; TEMP 98; O2SAT 97
[2017-08-01] MEDS: SODIUM CHLOR 0.9% 1000 ML INJ 1,000 ML IV SCH (04:00)
[2017-08-01] MEDS: LEVOTHYROXINE SODIUM 100 MCG TAB PO SCH (05:29)
[2017-08-01] MEDS: MIDODRINE 5 MG TAB PO SCH ×3 (05:29→17:57)
[2017-08-01 08:00] VITALS: BP 127/60; PULSE 120; PULSE 125; RESP 28; TEMP 97.7; O2SAT 97
[2017-08-01] MEDS: INSULIN ASPART SUPPLEMENTAL SCALE SQ SCH ×4 (08:00→20:17)
[2017-08-01 08:48] LABS: AUTOMATED NEUTROPHIL # 8.1 TH/MM3 (1.8-7.7); BASOPHIL # 0.1 TH/MM3 (0-0.2); BASOPHIL % 1.2 % (0.0-2.0); EOSINOPHIL # 0.1 TH/MM3 (0-0.4); EOSINOPHIL % 0.6 % (0.0-4.0); HEMATOCRIT 27.9 % (35.0-46.0); HEMOGLOBIN 8.9 GM/DL (11.6-15.3); LYMPH % 6.4 % (9.0-44.0); LYMPHOCYTE # 0.6 TH/MM3 (1.0-4.8); MEAN CELL VOLUME 92.4 FL (80.0-100.0); MEAN CORPUSCULAR HEMOGLOBIN 29.5 PG (27.0-34.0); MEAN CORPUSCULAR HGB CONC 31.9 % (32.0-36.0); MONO % 11.6 % (0.0-8.0); MONOCYTE # 1.2 TH/MM3 (0-0.9); NEUT % 80.2 % (16.0-70.0); PLATELET COUNT 288 TH/MM3 (150-450); RED BLOOD COUNT 3.02 MIL/MM3 (4.00-5.30); RED CELL DISTRIBUTION WIDTH 21.8 % (11.6-17.2)
[2017-08-01] MEDS: SODIUM CHLORIDE 0.9% FLUSH 10 ML FLUSH IV FLUSH SCH ×2 (08:58→20:18)
[2017-08-01] MEDS: metroNIDAZOLE 500 MG TAB PO SCH ×3 (08:59→17:57)
[2017-08-01] MEDS: PANTOPRAZOLE SOD 40 MG DELAYED RELEASE TAB PO SCH (08:59)
[2017-08-01] MEDS: LEFLUNOMIDE 20 MG TAB PO SCH (08:59)
[2017-08-01] MEDS: DOCUSATE SODIUM 50 MG/SENNA 8.6 MG TAB PO SCH ×2 (08:59→20:18)
[2017-08-01] MEDS: METOPROLOL TARTRATE 25 MG TAB PO SCH ×2 (09:00→20:18)
[2017-08-01 09:17] LABS: BICARBONATE 27.7 MEQ/L (21.0-32.0); CALCIUM 8.8 MG/DL (8.5-10.1); CREATININE 4.09 MG/DL (0.50-1.00)
[2017-08-01 09:33] LABS: BANDS 10 % (0-6); CORRECTED NUCLEATED RBC 2 /100 WBC (0-0); LYMPHOCYTES 2 % (9-44); METAMYELOCYTES 1 % (0-1); MONOCYTES 5 % (0-8); NEUTROPHIL # MANUAL DIFF 9.3 TH/MM3 (1.8-7.7); NUCLEATED RED BLOOD CELL 2 (0-0); POLYS (SEG NEUTROPHILS) 82 % (16-70)
[2017-08-01 09:34] LABS: OVALOCYTES 1+ (NORMAL)
--- NOTE | 2017-08-01 10:32 | HHI.NPPN ---
Subjective History of Present Illness The patient is an 87 yo [place] female who was advised by our office to come to the hospital for further evaluation of renal decline and fluid retention. She has been stage 4/5 for some time with a developing LUE AVF. She fell 2 weeks ago and sustained a SDH treated at [facility]. When she presented to the office for f/u yesterday, it was noted that her SCr had risen to 3.7 (baseline 2.5-2.7 ) and that she had a significant amount of pitting edema in lower extremities. She is seen today s/p PermCath placement as SCr mike again this AM to 4.61 with a eGFR of 9 and it is recommended that we initiate dialysis during this admission given her progressive decline. Son, Kash, present in room. The patient herself if quite drowsy as she just had PermCath placed. Interval History Patient complaining of feeling weak. Otherwise respiratory status appears to be improving and she is also more alert. Review of Systems General Constitutional: Fatigue Respiratory Lungs: SOB, Cough Objective Data Data Vital Signs Date Time Temp Pulse Resp B/P (MAP) Pulse Ox O2 Delivery O2 Flow Rate FiO2 08/01/17 08:00 Nasal Cannula 3.00 08/01/17 08:00 125 08/01/17 08:00 97.7 120 28 127/60 (82) 97 08/01/17 04:00 98.0 127 24 120/70 (87) 97 08/01/17 04:00 116 08/01/17 00:00 126 08/01/17 00:00 97.4 121 24 121/57 (78) 93 07/31/17 20:00 96 Nasal Cannula 3.00 07/31/17 20:00 97.9 111 18 94/45 (61) 94 07/31/17 20:00 120 07/31/17 16:02 98.5 90 21 108/52 (70) 92 07/31/17 12:01 97.4 138 21 128/83 (98) 96 -: 08/01/17 0805 08/01/17 0805 Physical Exam General Appearance: No Acute Distress, Malnourished Pulmonary Resp Exam: Clear Bilaterally, Decreased Bases, Diminished Breath Sounds Cardiology CV Exam: Regular Gastrointestinal/Abdomen GI Exam: Soft, Non-Tender Integumentary Skin Exam: Clear, Warm Extremeties Extremities Exam: Trace Edema (lower extremity.), Pitting Edema (one plus pitting edema presacral area and hips.) Neurologic Neuro Exam: Alert, Awake, Speech Clear, Moving All Extremities Psychiatric Psych Exam: Appropriate Responses Assessment/Plan Discussed Condition With: Patient Problem List: (1) ESRD (end stage renal disease) ICD Codes: N18.6 - End stage renal disease Status: Chronic Plan: Patient does appear to be improving clinically but still very debilitated. Will need rehabilitation post discharge. Discharge planning okay from renal point of view. Patient's overall prognosis fpc appears to be guarded. Remains be determined whether not her overall condition and quality of life will improve with dialytic support. Medications should be adjusted for the patient's ESRD. Avoid gadolinium. (2) HTN (hypertension) ICD Codes: I10 - HTN (hypertension) Status: Chronic (3) Anemia ICD Codes: D64.9 - Anemia, unspecified Status: Chronic Plan: Continue with Epogen. (4) Intraparenchymal hematoma of brain ICD Codes: S06.360A - Traumatic hemorrhage of cerebrum, unspecified, without loss of consciousness, initial encounter Status: Chronic Plan: Still present but does not appear to be worsening as per reports. Will hold heparin with HD. (5) Afib ICD Codes: I48.91 - Afib Status: Chronic (6) DM (diabetes mellitus screen) ICD Codes: Z13.1 - DM (diabetes mellitus screen) Status: Chronic Plan: Mgmt as per primary (7) Dyspnea ICD Codes: R06.00 - Dyspnea, unspecified Plan: Improve clinically. Problem Qualifiers (1) HTN (hypertension): Qualified Codes: I10 - Essential (primary) hypertension (2) Intraparenchymal hematoma of brain: Qualified Codes: S06.349D - Traumatic hemorrhage of right cerebrum with loss of consciousness of unspecified duration, subsequent encounter (3) Afib: Qualified Codes: I48.2 - Chronic atrial fibrillation Stephan Waite MD Aug 01, 2017 10:32
[2017-08-01 12:00] VITALS: BP 106/58; PULSE 118; PULSE 128; RESP 26; TEMP 97.6; O2SAT 95
--- NOTE | 2017-08-01 12:07 | HHI.FPPN ---
Subjective Remarks No acute issues overnight. Patient notes shortness of breath and continued diarrhea this morning. She is scheduled for dialysis today. She continues to have tachycardia ranging 116-138. Blood pressure is stable. O2 saturation 97% on 3 L nasal cannula. (Sabina Berger MD, R3) Objective Vitals Vital Signs Date Time Temp Pulse Resp B/P (MAP) Pulse Ox O2 Delivery O2 Flow Rate FiO2 08/01/17 08:00 Nasal Cannula 3.00 08/01/17 08:00 125 08/01/17 08:00 97.7 120 28 127/60 (82) 97 08/01/17 04:00 98.0 127 24 120/70 (87) 97 08/01/17 04:00 116 08/01/17 00:00 126 08/01/17 00:00 97.4 121 24 121/57 (78) 93 07/31/17 20:00 96 Nasal Cannula 3.00 07/31/17 20:00 97.9 111 18 94/45 (61) 94 07/31/17 20:00 120 07/31/17 16:02 98.5 90 21 108/52 (70) 92 07/31/17 12:01 97.4 138 21 128/83 (98) 96 I/O 07/31/17 07/31/17 07/31/17 08/01/17 08/01/17 08/01/17 07:00 15:00 23:00 07:00 15:00 23:00 Intake Total 550 ml 840 ml Output Total 2 ml Balance 548 ml 840 ml Intake Oral 240 ml IV Total 550 ml 600 ml Output Urine Total 2 ml Bladder Scan Volume Amount 24 ml # Voids 1 2 # Bowel Movements 1 10 2 (Sabina Berger MD, R3) Result Diagram: 08/01/17 0805 08/01/17 0805 Imaging Last Impressions Chest X-Ray 07/28/17 0600 Signed Impressions: Service Date/Time: July 10:11 - CONCLUSION: Patchy opacities left lower lobe and probable small pleural effusion. Findings are more prominent on current study. Cardiomegaly. Trip Youssef MD Head CT 07/28/17 0000 Signed Impressions: Service Date/Time: July 10:18 - CONCLUSION: 1. Right frontal intraparenchymal hemorrhage and adjacent vasogenic edema does not appear to have significantly changed. Hemorrhagic mass also remains in the differential but felt to be less likely. Trip Youssef MD Catheter Placement X-Ray 07/28/17 0000 Signed Impressions: Service Date/Time: July 15:18 - CONCLUSION: Uncomplicated PermaCath placement as above. Thang Tucker Jr., MD Renal Ultrasound 07/27/17 0000 Signed Impressions: Service Date/Time: Thursday, July 27, 2017 15:35 - CONCLUSION: 1. Status post right nephrectomy without significant mass in the right nephrectomy bed. 2. No obstructive left sided uropathy. 3. here are least 2 dominant anechoic simple appearing cysts in the left kidney. Please note that additional left-sided lesions noted on recent CT examination are not demonstrated in the current exam , likely technical. Again, consider MRI examination on outpatient basis for further characterization of several left renal lesions with indeterminate density particularly in the superior pole. Andrés Jiang MD Objective Remarks GENERAL: Well-nourished, well-developed elderly female in bed comfortably in no acute distress. SKIN: Warm and dry. No rashes or lesions present. EYES: No scleral icterus. No conjunctival injection or drainage. Extraocular movements intact. THROAT: Moist mucous membranes. NECK: Supple, trachea midline. CARDIOVASCULAR: Regular rate and rhythm without murmurs, gallops, or rubs. Strong radial and pedal pulses. CHEST: Symmetric chest expansion with respiration. RESPIRATORY: Breath sounds clear to auscultation bilaterally. No accessory muscle use. No wheezes, rhonchi or rales. Unable to speak in complete sentences without becoming short of breath. GASTROINTESTINAL: Abdomen soft, non-tender, nondistended. Bowel sounds present and active. MUSCULOSKELETAL: No cyanosis. Trace lower extremity edema bilaterally. NEURO: No focal abnormalities appreciated. PSYCH: Normal mood and affect. (Sabina Berger MD, R3) A/P Assessment and Plan Patient is an 87-year-old female with a past medical history significant for ESRD, recent intracranial hemorrhage, atrial fibrillation, diabetes, CHF, and hypertension who presented after being sent to the hospital by her student life vice president for increasing creatinine, fatigue, and lower extremity edema, admitted for worsening renal function. Patient was started on dialysis by student life vice president Dr. Waite Discharge Planning Pending improvement in symptoms likely with dialysis, however prognosis remains guarded at this time. Anticipate discharge to SNF ([facility]) tomorrow. Case management assisting with discharge planning including outpatient dialysis. (Sabina Berger MD, R3) Attending Attestation Patient seen and examined, discussed with resident team. I agree with assessment and management as documented and discussed with me. Chair time for dialysis has been arranged. [facility] has accepted patient. Continue flagyl for C Diff. Discharge once diarrhea has improved somewhat. If no improvement, may need to transition to oral vancomycin. (Mallorie Carrasco MD) Problem List: (1) ESRD (end stage renal disease) ICD Codes: N18.6 - End stage renal disease Status: Chronic Plan: Worsening renal function. Creatinine 4.37 on admission, 4.09 today Creatinine baseline per records is 2.6-3.8. Creatinine 2.6 as recently as Jul 09. Patient follows with student life vice president Dr. Waite- appreciate nephrology's recommendations - Continue to follow renal function - Overall prognosis appears to be guarded, unsure if quality of life will be improved with dialysis Patient had dialysis on 07/29 and 07/30. Dialysis planned for today. Dialysis schedule tentatively Tuesday, Tuesday, Tuesday on discharge. Continue EPO with HD Avoid nephrotoxic agents (2) CHF (congestive heart failure) ICD Codes: I50.9 - Heart failure, unspecified Status: Chronic Plan: Progressive SOB Last echo at [place] in 2010: Ejection fraction 55-60%, left atrium mildly dilated BNP 641 on admission, trended up to 791 on 07/28 No evidence of fluid overload on PE, no pitting edema Hold hypertensive medications Hold diuretics (3) HTN (hypertension) ICD Codes: I10 - HTN (hypertension) Status: Chronic Plan: Hold home blood pressure medications and diuretics due to hypotension Continue to monitor BP Midodrine for hypotension 3 times a day (4) Intraparenchymal hematoma of brain ICD Codes: S06.360A - Traumatic hemorrhage of cerebrum, unspecified, without loss of consciousness, initial encounter Status: Chronic Plan: Patient is s/p fall on July 14 with subsequent intracranial bleed and hospitalization at [facility] for one week. 07/27 CT head: Focal hemorrhage and right frontal region, parenchymal hemorrhage , small amount of subarachnoid hemorrhage, vasogenic edema in right frontal lobe - Radiologist confirms that this may be due to old hemorrhage 07/[address]: right frontal intraparenchymal hemorrhage and adjacent vasogenic edema does not appear to have significantly changed. Hemorrhagic mass also remains in the differential but felt to be less likely. Continue to monitor neurologic status (5) Glaucoma ICD Codes: H40.9 - Unspecified glaucoma Plan: Patient with a known history of glaucoma Holding home Timolol ophthalmic solution as this can contribute to hypotension Will need follow-up with generator mechanic as outpatient (6) Afib ICD Codes: I48.91 - Afib Status: Chronic Plan: A. fib on EKG Patient not on a daily anticoagulation due to recent fall and TBI and HD Hold home metoprolol (7) C. difficile diarrhea ICD Codes: A04.72 - Enterocolitis due to Clostridium difficile, not specified as recurrent Status: Acute Plan: Patient continues to have multiple episodes of diarrhea C.Diff positive on 07/31/17 Continue Flagyl 500mg PO q8hr (07/31 - 08/10) Probiotics (8) Hypothyroidism ICD Codes: E03.9 - Hypothyroidism, unspecified Status: Chronic Plan: TSH wnl at 3.480 Continue home levothyroxine 100 g daily (9) DM (diabetes mellitus screen) ICD Codes: Z13.1 - DM (diabetes mellitus screen) Status: Chronic Plan: Hold home Tradjenta Accu-Cheks with SSI (10) fen/ppx Status: Chronic Plan: Fluids: Encourage PO intake, careful with IV hydration due to CHF and ESRD Electrolytes: Continue to monitor and replete PRN Nutrition: Renal diet, encourage ensure supplement DVT prophylaxis: SCDs, daily chemical anticoagulation held for intracranial bleed (Sabina Berger MD, R3) Problem Qualifiers (1) CHF (congestive heart failure): Qualified Codes: I50.9 - Heart failure, unspecified (2) HTN (hypertension): Qualified Codes: I10 - Essential (primary) hypertension (3) Intraparenchymal hematoma of brain: Qualified Codes: S06.349D - Traumatic hemorrhage of right cerebrum with loss of consciousness of unspecified duration, subsequent encounter (4) Glaucoma: Qualified Codes: H40.9 - Unspecified glaucoma (5) Afib: Qualified Codes: I48.2 - Chronic atrial fibrillation (6) Hypothyroidism: Qualified Codes: E03.9 - Hypothyroidism, unspecified Sabina Berger MD, R3 Aug 01, 2017 12:07 Mallorie Carrasco MD Aug 01, 2017 16:45
[2017-08-01] MEDS: HEPARIN SODIUM - IV 10,000 UNITS/10 ML VIAL PRN (16:35)
[2017-08-01] MEDS: GENTAMICIN SULFATE 20 MG/2 ML VIAL OTHER PRN (16:35)
[2017-08-01] MEDS: EPOETIN ALFA 10,000 UNITS/ML VIAL IV PUSH SCH (16:35)
[2017-08-01 20:08] VITALS: PULSE 114
[2017-08-01] MEDS: ATORVASTATIN 20 MG TAB PO SCH (20:18)
[2017-08-01 21:50] VITALS: BP 119/63; PULSE 132; RESP 18; TEMP 97.5; O2SAT 91
[2017-08-02] VITALS (12 sets, daily range): BP systolic 106–129; BP diastolic 59–98; PULSE 96–138; RESP 18–22; TEMP 97–97.6; O2SAT 91–100
[2017-08-02] MEDS: LEVOTHYROXINE SODIUM 100 MCG TAB PO SCH (04:57)
[2017-08-02] MEDS: MIDODRINE 5 MG TAB PO SCH ×3 (06:02→17:32)
[2017-08-02] MEDS: INSULIN ASPART SUPPLEMENTAL SCALE SQ SCH ×4 (08:00→21:00)
[2017-08-02 08:59] LABS: AUTOMATED NEUTROPHIL # 8.7 TH/MM3 (1.8-7.7); BASOPHIL # 0.1 TH/MM3 (0-0.2); BASOPHIL % 1.3 % (0.0-2.0); EOSINOPHIL % 0.1 % (0.0-4.0); HEMATOCRIT 30.1 % (35.0-46.0); HEMOGLOBIN 9.5 GM/DL (11.6-15.3); LYMPH % 3.7 % (9.0-44.0); LYMPHOCYTE # 0.4 TH/MM3 (1.0-4.8); MEAN CELL VOLUME 94.1 FL (80.0-100.0); MEAN CORPUSCULAR HEMOGLOBIN 29.7 PG (27.0-34.0); MEAN CORPUSCULAR HGB CONC 31.5 % (32.0-36.0); MEAN PLATELET VOLUME 7.7 FL (7.0-11.0); MONO % 9.1 % (0.0-8.0); MONOCYTE # 0.9 TH/MM3 (0-0.9); NEUT % 85.8 % (16.0-70.0); PLATELET COUNT 226 TH/MM3 (150-450); RED CELL DISTRIBUTION WIDTH 21.7 % (11.6-17.2); WHITE BLOOD COUNT 10.1 TH/MM3 (4.0-11.0)
[2017-08-02] MEDS: DOCUSATE SODIUM 50 MG/SENNA 8.6 MG TAB PO SCH ×2 (09:00→21:00)
[2017-08-02] MEDS: METOPROLOL TARTRATE 25 MG TAB PO SCH (09:00)
[2017-08-02] MEDS: SODIUM CHLORIDE 0.9% FLUSH 10 ML FLUSH IV FLUSH SCH ×2 (09:11→21:00)
[2017-08-02] MEDS: metroNIDAZOLE 500 MG TAB PO SCH ×3 (09:11→17:32)
[2017-08-02] MEDS: PANTOPRAZOLE SOD 40 MG DELAYED RELEASE TAB PO SCH (09:11)
[2017-08-02 09:21] LABS: CREATININE 3.12 MG/DL (0.50-1.00)
[2017-08-02 09:22] LABS: BICARBONATE 29.5 MEQ/L (21.0-32.0); CALCIUM 8.9 MG/DL (8.5-10.1)
[2017-08-02 09:33] LABS: BANDS 11 % (0-6); LYMPHOCYTES 4 % (9-44); MONOCYTES 5 % (0-8); NEUTROPHIL # MANUAL DIFF 9.2 TH/MM3 (1.8-7.7); OVALOCYTES 1+ (NORMAL); POLYS (SEG NEUTROPHILS) 80 % (16-70)
[2017-08-02] MEDS ORDERED: RESP: ALBUTEROL 2.5 MG/3 ML NEB (PRN) INH (10:30)
--- NOTE | 2017-08-02 12:03 | HHI.NPPN ---
Subjective History of Present Illness The patient is an 87 yo [place] female who was advised by our office to come to the hospital for further evaluation of renal decline and fluid retention. She has been stage 4/5 for some time with a developing LUE AVF. She fell 2 weeks ago and sustained a SDH treated at [facility]. When she presented to the office for f/u yesterday, it was noted that her SCr had risen to 3.7 (baseline 2.5-2.7 ) and that she had a significant amount of pitting edema in lower extremities. She is seen today s/p PermCath placement as SCr mike again this AM to 4.61 with a eGFR of 9 and it is recommended that we initiate dialysis during this admission given her progressive decline. Son, Kash, present in room. The patient herself if quite drowsy as she just had PermCath placed. Interval History Pt lethargic today. Dx with C diff colitis and started on Flagyl (Rachel Edmonds) Review of Systems General Constitutional: Fatigue (Rachel Edmonds) Respiratory Lungs: SOB (Rachel Edmonds) Objective Data Data Vital Signs Date Time Temp Pulse Resp B/P (MAP) Pulse Ox O2 Delivery O2 Flow Rate FiO2 08/02/17 08:00 106 08/02/17 08:00 Nasal Cannula 3.00 08/02/17 08:00 97.1 128 22 118/98 (105) 94 08/02/17 05:35 97.6 115 18 106/59 (75) 91 08/02/17 04:34 138 08/02/17 04:00 Nasal Cannula 3.00 08/02/17 03:31 93 Nasal Cannula 2.00 08/02/17 00:20 97.6 129 18 128/65 (86) 91 08/02/17 00:05 120 08/02/17 00:00 Nasal Cannula 3.00 08/01/17 21:50 97.5 132 18 119/63 (81) 91 08/01/17 20:08 114 08/01/17 20:00 Nasal Cannula 3.00 08/01/17 12:28 Nasal Cannula 3.00 08/01/17 12:00 97.6 118 26 106/58 (74) 95 08/01/17 12:00 128 (Rachel Edmonds) -: 08/02/17 0826 08/02/17 0826 Imaging Last Impressions Chest X-Ray 07/28/17 0600 Signed Impressions: Service Date/Time: July 10:11 - CONCLUSION: Patchy opacities left lower lobe and probable small pleural effusion. Findings are more prominent on current study. Cardiomegaly. Trip Youssef MD Head CT 07/28/17 0000 Signed Impressions: Service Date/Time: July 10:18 - CONCLUSION: 1. Right frontal intraparenchymal hemorrhage and adjacent vasogenic edema does not appear to have significantly changed. Hemorrhagic mass also remains in the differential but felt to be less likely. Trip Youssef MD Catheter Placement X-Ray 07/28/17 0000 Signed Impressions: Service Date/Time: July 15:18 - CONCLUSION: Uncomplicated PermaCath placement as above. Thang Tucker Jr., MD Renal Ultrasound 07/27/17 0000 Signed Impressions: Service Date/Time: Thursday, July 27, 2017 15:35 - CONCLUSION: 1. Status post right nephrectomy without significant mass in the right nephrectomy bed. 2. No obstructive left sided uropathy. 3. here are least 2 dominant anechoic simple appearing cysts in the left kidney. Please note that additional left-sided lesions noted on recent CT examination are not demonstrated in the current exam , likely technical. Again, consider MRI examination on outpatient basis for further characterization of several left renal lesions with indeterminate density particularly in the superior pole. Andrés Jiang MD Medication Review Current Medications Medications (Trade) Dose Ordered Sig/Shahana Route Start Time Stop Time Status Last Admin (Synthroid) 100 mcg DAILY@0600 PO 07/28/17 06:00 08/02/17 04:57 (Timoptic 0.5% Opth Soln) 1 drop BID EACH EYE 07/27/17 14:30 Future Hold (Protonix) 40 mg DAILY PO 07/28/17 09:00 08/02/17 09:11 Patient Own Medication PT OWN MED: (Febuxos... DAILY PO 07/28/17 09:00 Future Hold (Arava) 20 mg MoWeFr@0900 PO 07/27/17 18:00 08/01/17 08:59 (Lipitor) 20 mg HS PO 07/27/17 21:00 08/01/17 20:18 (NS Flush) 2 ml UNSCH PRN IV FLUSH 07/27/17 14:45 (NS Flush) 2 ml BID IV FLUSH 07/27/17 21:00 08/02/17 09:11 (Tylenol) 650 mg Q4H PRN PO 07/27/17 14:45 (Narcan Inj) 0.4 mg UNSCH PRN IV PUSH 07/27/17 14:45 (Maira-Colace) 1 tab BID PO 07/27/17 21:00 08/01/17 08:59 (Milk Of Magnesia Liq) 30 ml Q12H PRN PO 07/27/17 14:45 (Senokot) 17.2 mg Q12H PRN PO 07/27/17 14:45 (Dulcolax Supp) 10 mg DAILY PRN RECTAL 07/27/17 14:45 (Lactulose Liq) 30 ml DAILY PRN PO 07/27/17 14:45 (D50w (Vial) Inj) 50 ml UNSCH PRN IV PUSH 07/27/17 15:30 07/27/17 21:00 (Glucagon Inj) 1 mg UNSCH PRN OTHER 07/27/17 15:30 (NovoLOG SUPPLEMENTAL SCALE) 1 ACHS SLIDING SCALE SQ 07/27/17 17:00 07/31/17 21:15 (NS Flush) UNSCH PRN IV FLUSH 07/28/17 15:00 (Heparin Inj) UNSCH PRN IV FLUSH 07/28/17 15:00 Sodium Chloride 1,000 ml @ 0 mls/hr Q0M PRN OTHER 07/28/17 18:42 Sodium Chloride 1,000 ml @ 200 mls/hr Q5H PRN IV 07/28/17 18:42 Sodium Chloride 1,000 ml @ 0 mls/hr Q0M PRN OTHER 07/28/17 18:42 Albumin Human 100 ml @ 60 mls/hr UNSCH PRN IV 07/28/17 18:45 (NS Flush) 5 ml UNSCH PRN IV FLUSH 07/28/17 18:45 (Heparin Inj) UNSCH PRN .XX 07/28/17 18:45 08/01/17 16:35 (Gentamicin Inj) 20 mg UNSCH PRN OTHER 07/28/17 18:45 08/01/17 16:35 (Zofran Inj) 4 mg UNSCH PRN IV PUSH 07/28/17 18:45 (Tylenol) 650 mg UNSCH PRN PO 07/28/17 18:45 (Benadryl) 25 mg UNSCH PRN PO 07/28/17 18:45 (Nitrostat Sl) 0.4 mg UNSCH PRN SL 07/28/17 18:45 (Catapres) 0.1 mg UNSCH PRN PO 07/28/17 18:45 (Gelfoam 12 Mm/7 Mm Top) 1 foam UNSCH PRN TOP 07/28/17 18:45 (Epogen Inj) 10,000 units WITH DIALYSIS IV PUSH 07/28/17 19:30 08/01/17 16:35 (Proamatine) 5 mg TID@07,12,17 PO 07/29/17 17:00 08/02/17 06:02 (Lopressor) 25 mg Q12HR PO 07/31/17 14:45 08/02/17 09:00 (Flagyl) 500 mg TID PO 07/31/17 15:30 08/02/17 09:11 (Tessalon) 200 mg Q8H PRN PO 08/01/17 02:30 (Duoneb Neb) 1 ampule Q4HR NEB INH 08/02/17 12:00 (Albuterol Neb) 2.5 mg Q2HR NEB PRN INH 08/02/17 10:30 (Rachel Edmonds) Physical Exam General Appearance: Malnourished (Rachel Edmonds) Pulmonary Resp Exam: Clear Bilaterally, Decreased Bases, Diminished Breath Sounds (Rachel Edmonds) Cardiology CV Exam: Regular, Tachycardia (Rachel Edmonds) Gastrointestinal/Abdomen GI Exam: Soft, Non-Tender (Rachel Edmonds) Integumentary Skin Exam: Clear, Warm (Rachel Edmonds) Extremeties Extremities Exam: Moderate Edema, Pitting Edema (1+ hips and BUE) (Rachel Edmonds) Neurologic Neuro Exam: Awake (Rachel Edmonds) Psychiatric Psych Exam: Appropriate Responses (Rachel Edmonds) Assessment/Plan Discussed Condition With: Patient Problem List: (1) ESRD (end stage renal disease) ICD Codes: N18.6 - End stage renal disease Status: Chronic Plan: Pt quite lethargic today. HD as ordered tomorrow with UF of 2.5-3L as tolerated. Will need rehabilitation post discharge. Patient's overall prognosis long-term appears to be guarded. Remains be determined whether not her overall condition and quality of life will improve with dialytic support. Medications should be adjusted for the patient's ESRD. Avoid gadolinium. (2) HTN (hypertension) ICD Codes: I10 - HTN (hypertension) Status: Chronic Plan: BP has been marginal, but improving. Will increase Metoprolol slightly given her tachycardia. (3) Anemia ICD Codes: D64.9 - Anemia, unspecified Status: Chronic Plan: Continue with Epogen. (4) Intraparenchymal hematoma of brain ICD Codes: S06.360A - Traumatic hemorrhage of cerebrum, unspecified, without loss of consciousness, initial encounter Status: Chronic Plan: Still present but does not appear to be worsening as per reports. Will hold heparin with HD. (5) Afib ICD Codes: I48.91 - Afib Status: Chronic (6) DM (diabetes mellitus screen) ICD Codes: Z13.1 - DM (diabetes mellitus screen) Status: Chronic Plan: Mgmt as per primary (7) Dyspnea ICD Codes: R06.00 - Dyspnea, unspecified Plan: Improve clinically. (8) C. difficile diarrhea ICD Codes: A04.72 - Enterocolitis due to Clostridium difficile, not specified as recurrent Status: Acute (Rachel Edmonds) Plan The exam, history, and the medical decision-making described in the above note were completed with the assistance of the NICK. I reviewed and agree with the findings presented. (Setphan Waite MD) Problem Qualifiers (1) HTN (hypertension): Qualified Codes: I10 - Essential (primary) hypertension (2) Intraparenchymal hematoma of brain: Qualified Codes: S06.349D - Traumatic hemorrhage of right cerebrum with loss of consciousness of unspecified duration, subsequent encounter (3) Afib: Qualified Codes: I48.2 - Chronic atrial fibrillation Rachel Edmonds Aug 02, 2017 12:03 Stephan Waite MD Aug 03, 2017 17:07
--- NOTE | 2017-08-02 12:35 | HHI.FPPN ---
Subjective Remarks Patient seen and examined bedside this morning. There were no acute events overnight. Patient continues complain of productive cough. She continues to have some shortness of breath but states that it has been improved since yesterday. She denies any specific chest pain. Denies any dizziness or confusion. (Nusrat Quevedo MD R2) Objective Vitals Vital Signs Date Time Temp Pulse Resp B/P (MAP) Pulse Ox O2 Delivery O2 Flow Rate FiO2 08/02/17 08:00 106 08/02/17 08:00 Nasal Cannula 3.00 08/02/17 08:00 97.1 128 22 118/98 (105) 94 08/02/17 05:35 97.6 115 18 106/59 (75) 91 08/02/17 04:34 138 08/02/17 04:00 Nasal Cannula 3.00 08/02/17 03:31 93 Nasal Cannula 2.00 08/02/17 00:20 97.6 129 18 128/65 (86) 91 08/02/17 00:05 120 08/02/17 00:00 Nasal Cannula 3.00 08/01/17 21:50 97.5 132 18 119/63 (81) 91 08/01/17 20:08 114 08/01/17 20:00 Nasal Cannula 3.00 08/01/17 12:28 Nasal Cannula 3.00 I/O 08/01/17 08/01/17 08/01/17 08/02/17 08/02/17 08/02/17 07:00 15:00 23:00 07:00 15:00 23:00 Intake Total 240 ml 0 ml Output Total 2000 ml 0 ml Balance -1760 ml 0 ml Intake Oral 240 ml 0 ml Output Urine Total 0 ml Hemodialysis 2000 ml # Voids 2 2 # Bowel Movements 2 5 0 (Nusrat Quevedo MD R2) Result Diagram: 08/02/1726 08/02/17 0826 Objective Remarks GENERAL: Well-nourished, well-developed elderly female in bed comfortably in no acute distress. SKIN: Warm and dry. No rashes or lesions present. EYES: No scleral icterus. No conjunctival injection or drainage. Extraocular movements intact. THROAT: Moist mucous membranes. NECK: Supple, trachea midline. CARDIOVASCULAR: Regular rate and rhythm without murmurs, gallops, or rubs. Strong radial and pedal pulses. CHEST: Symmetric chest expansion with respiration. RESPIRATORY: Breath sounds with diffuse wheezing and bibasilar crackles.. No accessory muscle use. No wheezes, rhonchi or rales. Unable to speak in complete sentences without becoming short of breath. Positive coughing GASTROINTESTINAL: Abdomen soft, non-tender, nondistended. Bowel sounds present and active. MUSCULOSKELETAL: No cyanosis. Trace lower extremity edema bilaterally. NEURO: No focal abnormalities appreciated. PSYCH: Normal mood and affect. (Nusrat Quevedo MD R2) A/P Assessment and Plan Patient is an 87-year-old female with a past medical history significant for ESRD, recent intracranial hemorrhage, atrial fibrillation, diabetes, CHF, and hypertension who presented after being sent to the hospital by her high school combination teacher for increasing creatinine, fatigue, and lower extremity edema, admitted for worsening renal function. Patient was started on dialysis by high school combination teacher Dr. Waite and patient is now expressing that she does not want to continue dialysis. Discharge Planning Palliative care to come assess long-term plans. Decision to go to sniff with dialysis or sniff with hospice (Nusrat Quevedo MD R2) Attending Attestation patient seen and examined, discussed with resident team. I agree with assessment and management as documented and discussed with me. Pt with wheezing this morning, which is new. She does feel her breathing is overall a little better than yesterday. She appears more comfortable in her breathing today. Appreciate palliative care, to help clarify patient's goals of care after expressing desire to stop dialysis. Pt would be appropriate for hospice care should her goals of care align. (Mallorie Carrasco MD) Problem List: (1) ESRD (end stage renal disease) ICD Codes: N18.6 - End stage renal disease Status: Chronic Plan: Proving renal function with dialysis, and expressed that she does not want to continue dialysis This evidently was not expressed nephrology plans to dialyze her again tomorrow Palliative care to come assess wishes Creatinine 4.37 on admission, 3.12 today Creatinine baseline per records is 2.6-3.8. Creatinine 2.6 as recently as Jul 09. Patient follows with high school combination teacher Dr. Waite- appreciate nephrology's recommendations - Continue to follow renal function - Overall prognosis appears to be guarded, unsure if quality of life will be improved with dialysis - We will need rehabilitation after discharge Dialysis schedule tentatively Tuesday, Tuesday, Tuesday on discharge. Continue EPO with HD Avoid nephrotoxic agents (2) CHF (congestive heart failure) ICD Codes: I50.9 - Heart failure, unspecified Status: Chronic Plan: Progressive SOB Last echo at [place] in 2010: Ejection fraction 55-60%, left atrium mildly dilated BNP 641 on admission, trended up to 791 on 07/28 No evidence of fluid overload on PE, no pitting edema Hold hypertensive medications Hold diuretics (3) HTN (hypertension) ICD Codes: I10 - HTN (hypertension) Status: Chronic Plan: Borderline hypotension previously, tachycardia over last 24 hours with heart rate 138 at max Add metoprolol 50mg twice a day per nephrology Midodrine for hypotension 3 times a day (4) Intraparenchymal hematoma of brain ICD Codes: S06.360A - Traumatic hemorrhage of cerebrum, unspecified, without loss of consciousness, initial encounter Status: Chronic Plan: Patient is s/p fall on July 14 with subsequent intracranial bleed and hospitalization at [facility] for one week. 07/27 CT head: Focal hemorrhage and right frontal region, parenchymal hemorrhage , small amount of subarachnoid hemorrhage, vasogenic edema in right frontal lobe - Radiologist confirms that this may be due to old hemorrhage 07/[address]: right frontal intraparenchymal hemorrhage and adjacent vasogenic edema does not appear to have significantly changed. Hemorrhagic mass also remains in the differential but felt to be less likely. Continue to monitor neurologic status (5) Glaucoma ICD Codes: H40.9 - Unspecified glaucoma Plan: Patient with a known history of glaucoma Holding home Timolol ophthalmic solution as this can contribute to hypotension Will need follow-up with hedge trimmer as outpatient (6) Afib ICD Codes: I48.91 - Afib Status: Chronic Plan: A. fib on EKG Previously held home medication metoprolol 100 mg twice a day Patient not on a daily anticoagulation due to recent fall and TBI and HD Added metoprolol 50 mg twice a day for tachycardia today (7) C. difficile diarrhea ICD Codes: A04.72 - Enterocolitis due to Clostridium difficile, not specified as recurrent Status: Acute Plan: Episodes of diarrhea have decreased over last 24 hours C.Diff positive on 07/31/17 Continue Flagyl 500mg PO q8hr (07/31 - 08/10) Probiotics (8) Hypothyroidism ICD Codes: E03.9 - Hypothyroidism, unspecified Status: Chronic Plan: TSH wnl at 3.480 Continue home levothyroxine 100 g daily (9) DM (diabetes mellitus screen) ICD Codes: Z13.1 - DM (diabetes mellitus screen) Status: Chronic Plan: Hold home Tradjenta Accu-Cheks with SSI (10) fen/ppx Status: Chronic Plan: Fluids: Encourage PO intake, careful with IV hydration due to CHF and ESRD Electrolytes: Continue to monitor and replete PRN Nutrition: Renal diet, encourage ensure supplement DVT prophylaxis: SCDs, daily chemical anticoagulation held for intracranial bleed (Nusrat Quevedo MD R2) Problem Qualifiers (1) CHF (congestive heart failure): Qualified Codes: I50.9 - Heart failure, unspecified (2) HTN (hypertension): Qualified Codes: I10 - Essential (primary) hypertension (3) Intraparenchymal hematoma of brain: Qualified Codes: S06.349D - Traumatic hemorrhage of right cerebrum with loss of consciousness of unspecified duration, subsequent encounter (4) Glaucoma: Qualified Codes: H40.9 - Unspecified glaucoma (5) Afib: Qualified Codes: I48.2 - Chronic atrial fibrillation (6) Hypothyroidism: Qualified Codes: E03.9 - Hypothyroidism, unspecified Nusrat Quevedo MD R2 Aug 02, 2017 12:35 Mallorie Carrasco MD Aug 02, 2017 20:55
[2017-08-02] MEDS: RESP: ALBUTEROL 2.5 MG/IPRATROPIUM 0.5 MG NEB (SCH) INH ×2 (15:27→19:36)
--- NOTE | 2017-08-02 15:57 | PD.CONS ---
Consult Service Palliative Care Consult Requested By Dr. Luna MD. Primary Care Physician Non-Staff Reason for Consultation a. To assist with evaluation and management of symptoms including: Shortness of breath, debility. b. To assist medical decision maker(s) with: better understanding of current medical conditions; weighing benefits/burdens of medical treatment options; making medical treatment decisions. . HPI History of Present Illness Mrs. Perez is an 87-year-old female with a medical history significant for end- stage renal disease, CHF, atrial fibrillation, anemia, CAD, hypertension, rheumatoid arthritis and right nephrectomy. 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 ED workup to include WBC 7.8, Hgb 8.8, platelet count 3:15. Potassium 3.3, BUN/creatinine 75 /4.37. BNP 641. Chest x-ray revealing small left pleural effusion with associated volume loss and airspace consolidation. Head CT revealed an area of focal hemorrhage involving the right frontal region. As per family medicine notes, radiologist confirmed this may be related to old hemorrhage. Patient was admitted for further management. Patient with history of recent brain bleed on secondary to mechanical fall. Patient seek treatment and [facility] where neurosurgery was consulted and recommended nonsurgical approach. Friend that most recent admission, patient was subsequently discharged from the [facility] residential facility for rehabilitation. Nephrology consulted on 07/28/17. Patient with chronic kidney failure stage 4/5 with developing left upper extremity AV fistula. PermCath was placed secondary to worsening kidney function requiring hemodialysis. BUN/creatinine 76/4.61. Patient underwent her first hemodialysis treatment on 07/29/17 removing 500 mL. Subsequent hemodialysis on 07/30/17 removing 1.5 L, 08/01/17 removing 2 L. Today patient was noted lethargic, very poor appetite with oral intake. Palliative care has been consulted for further clarifications of goals of care given overall guarded prognosis. Reviewed patient's past medical history. Most recent hospitalization 07/07/17 to 07/09/17 secondary to GI bleed. Patient underwent EGD with biopsy and colonoscopy with polyp biopsy. Pathology negative for malignancy. Palliative biopsy revealing colonic mucosa with mild hyperplastic changes. Patient seen in her room. She was finishing with physical therapy. Son Kash at bedside. In this first visit, introduced the role of palliative care in symptom management as well support surrounding goals of care and advance care planning. Patient and son receptive to palliative care consultation. Obtained patient's past medical history and psychosocial history. Reviewed events leading to these hospitalization, clinical course and current medical management. Patient clearly fatigued, limited participation in palliative care conversation secondary to sleepiness, lethargy. Shared concerns of patient's progressive debility, concerns of patient's ability to participate in outpatient rehabilitation/hemodialysis. Reviewed overall poor prognosis for improved quality of life or long-term survival given multiple chronic ongoing comorbidities, progressive decline since November 2016, end-stage renal disease requiring hemodialysis and profound physical deconditioning. Reviewed risks, benefits and limitations of CPR, intubation and mechanical ventilation given patient's condition. Patient son tells me that patient has verbalized in multiple locations not wanting to be on life support. Patient and son electing no code. DNR/DNI. Community DNR signed. Patient and son verbalized wishing to continue ongoing aggressive management short of no code. Hospice philosophy and benefits introduced, son receptive. Reviewed the future role of hospice should patient's clinical condition does not improve or worsen. Patient and son familiar with hospice services as patient's while under their services. Patient and son receptive to palliative care follow -ups. . Function/Cognitive Trajectory Patient with progressive decline since September 2016. Requiring some assistance with ADLs such as showering. Ambulating with walker. Recent fall in June, resulting in brain bleed. Son reports that patient has been forgetful lately. . Review of Systems ROS Limitations: Poor Historian Constitutional: COMPLAINS OF: Fatigue, Generalized weakness, DENIES: Fever, Chills Endocrine: DENIES: Heat/cold intolerance Eyes: DENIES: Eye inflammation, Eye pain Ears, nose, mouth, throat: DENIES: Hearing loss, Oral lesions, Ear Pain, Running Nose, Epistaxis Respiratory: COMPLAINS OF: Cough, Shortness of breath Cardiovascular: COMPLAINS OF: Dyspnea on Exertion, Lower Extremity Edema Gastrointestinal: COMPLAINS OF: Anorexia, DENIES: Diarrhea, Nausea, Vomiting Musculoskeletal: COMPLAINS OF: Joint pain Integumentary: DENIES: Rash Hematologic/Lymphatics: COMPLAINS OF: Bruising Immunologic/Allergic: DENIES: Eczema Neurologic: COMPLAINS OF: Poor Balance, DENIES: Headache, Localized weakness, Seizures, Tremor Psychiatric: COMPLAINS OF: Confusion, Depression, DENIES: Agitation Past Family Social History Coded Allergies: adhesive (Verified Allergy, Severe, skin breakdown, 07/07/17) PATIENT STATES NO ISSUES WITH TAPES/ADHESIVES diltiazem (Verified Allergy, Severe, 07/07/17) SOB, GI UPSET liothyronine (Verified Allergy, Severe, hypertension, 07/07/17) liotrix (Verified Allergy, Severe, hypertension, 07/07/17) nitrofurantoin (Verified Allergy, Severe, B/P ELEVATED, 07/07/17) Past Medical History end-stage renal disease CHF Hypertension Diabetes mellitus type 2 Atrial fibrillation GERD Anemia of chronic disease CAD Hypertension Rheumatoid arthritis Renal cancer status post nephrectomy . Past Surgical History R nephrectomy Colon resection Cholecystectomy Appendectomy Cardiac cath Hysterectomy AV Fistula right arm Parathyroidectomy x 2 - 2016 . Reported Medications Uloric (Febuxostat) 40 Mg Tab 40 Tab PO DAILY Paricalcitol 1 Mcg Cap 1 Mcg PO 3XWEEK Bumetanide 1 Mg Tab 1 Mg PO BID Metolazone 10 Mg Tab 10 Mg PO QOD Hydralazine HCl 10 Mg Tablet 20 Mg PO TID Procrit Inj (Epoetin Marcelo) 20,000 Unit/Ml Inj 20,000 Units SQ EVERY 2 WEEKS Biotin 1,000 Mcg Tab 1,000 Mg PO DAILY Timoptic Opth Drops (Timolol Opth Drops) 0.5 % Soln 1 Drop EACH EYE BID Preservision Areds (Multiple Vitamins W/ Minerals) 1 Tab 1 Tab PO DAILY Vitamin B Complex (B-Complex Vitamins) 1 Tab 1 Tab PO DAILY Lutein 20 Mg Cap 20 Mg PO DAILY Citracal Maximum (Calcium Citrate-Vitamin D) 315-250 Mg-Unit Tab 2 Tab PO BID Nexium (Esomeprazole DR) 40 Mg Capdr 40 Mg PO DAILY Leflunomide 20 Mg Tab 20 Mg PO MOWEFR Tradjenta (Linagliptin) 5 Mg Tab 5 Mg PO DAILY Levothyroxine (Levothyroxine Sodium) 100 Mcg Tab 100 Mcg PO DAILY Metoprolol Succinate ER 24 HR (Metoprolol Succinate) 100 Mg Tab 100 Mg PO BID Losartan (Losartan Potassium) 100 Mg Tab 100 Mg PO HS Norvasc (Amlodipine Besylate) 5 Mg Tab 5 Mg PO BID Crestor (Rosuvastatin Calcium) 10 Mg Tab 10 Mg PO HS . Current Medications Medications (Trade) Dose Ordered Sig/Shahana Route Start Time Stop Time Status Last Admin (Synthroid) 100 mcg DAILY@0600 PO 07/28/17 06:00 08/02/17 04:57 (Timoptic 0.5% Opth Soln) 1 drop BID EACH EYE 07/27/17 14:30 Future Hold (Protonix) 40 mg DAILY PO 07/28/17 09:00 08/02/17 09:11 Patient Own Medication PT OWN MED: (Febuxos... DAILY PO 07/28/17 09:00 Future Hold (Arava) 20 mg MoWeFr@0900 PO 07/27/17 18:00 08/01/17 08:59 (Lipitor) 20 mg HS PO 07/27/17 21:00 08/01/17 20:18 (NS Flush) 2 ml UNSCH PRN IV FLUSH 07/27/17 14:45 (NS Flush) 2 ml BID IV FLUSH 07/27/17 21:00 08/02/17 09:11 (Tylenol) 650 mg Q4H PRN PO 07/27/17 14:45 (Narcan Inj) 0.4 mg UNSCH PRN IV PUSH 07/27/17 14:45 (Maira-Colace) 1 tab BID PO 07/27/17 21:00 08/01/17 08:59 (Milk Of Magnesia Liq) 30 ml Q12H PRN PO 07/27/17 14:45 (Senokot) 17.2 mg Q12H PRN PO 07/27/17 14:45 (Dulcolax Supp) 10 mg DAILY PRN RECTAL 07/27/17 14:45 (Lactulose Liq) 30 ml DAILY PRN PO 07/27/17 14:45 (D50w (Vial) Inj) 50 ml UNSCH PRN IV PUSH 07/27/17 15:30 07/27/17 21:00 (Glucagon Inj) 1 mg UNSCH PRN OTHER 07/27/17 15:30 (NovoLOG SUPPLEMENTAL SCALE) 1 ACHS SLIDING SCALE SQ 07/27/17 17:00 07/31/17 21:15 (NS Flush) UNSCH PRN IV FLUSH 07/28/17 15:00 (Heparin Inj) UNSCH PRN IV FLUSH 07/28/17 15:00 Sodium Chloride 1,000 ml @ 0 mls/hr Q0M PRN OTHER 07/28/17 18:42 Sodium Chloride 1,000 ml @ 200 mls/hr Q5H PRN IV 07/28/17 18:42 Sodium Chloride 1,000 ml @ 0 mls/hr Q0M PRN OTHER 07/28/17 18:42 Albumin Human 100 ml @ 60 mls/hr UNSCH PRN IV 07/28/17 18:45 (NS Flush) 5 ml UNSCH PRN IV FLUSH 07/28/17 18:45 (Heparin Inj) UNSCH PRN .XX 07/28/17 18:45 08/01/17 16:35 (Gentamicin Inj) 20 mg UNSCH PRN OTHER 07/28/17 18:45 08/01/17 16:35 (Zofran Inj) 4 mg UNSCH PRN IV PUSH 07/28/17 18:45 (Tylenol) 650 mg UNSCH PRN PO 07/28/17 18:45 (Benadryl) 25 mg UNSCH PRN PO 07/28/17 18:45 (Nitrostat Sl) 0.4 mg UNSCH PRN SL 07/28/17 18:45 (Catapres) 0.1 mg UNSCH PRN PO 07/28/17 18:45 (Gelfoam 12 Mm/7 Mm Top) 1 foam UNSCH PRN TOP 07/28/17 18:45 (Epogen Inj) 10,000 units WITH DIALYSIS IV PUSH 07/28/17 19:30 08/01/17 16:35 (Proamatine) 5 mg TID@07,12,17 PO 07/29/17 17:00 08/02/17 13:20 (Flagyl) 500 mg TID PO 07/31/17 15:30 08/02/17 13:20 (Tessalon) 200 mg Q8H PRN PO 08/01/17 02:30 (Duoneb Neb) 1 ampule Q4HR NEB INH 08/02/17 12:00 (Albuterol Neb) 2.5 mg Q2HR NEB PRN INH 08/02/17 10:30 (Lopressor) 50 mg Q12HR PO 08/02/17 21:00 Family History Patient has 1 son who is alive and well. . Substance Use Tobacco: Denies. Alcohol: Denies. Prescription med abuse: Denies. Illicits: Denies. . Psychosocial History Patient originally from [place]. Moved to [place] 33 years ago. She is , 10 years ago. Patient has one son who has been residing with her since September 2016. . Spiritual/Cultural Factors Taoist mitzy. . Living Will: Copy in medical record Health Care Surrogate: Copy in medical record Date completed: 05/09/2017. . Health Care Surrogate(s): Patient has designated her son Kash Perez as healthcare surrogate decision maker. No alternate HCS designated. . Documented care wishes: Living will with standard verbiage as it pertains to terminal condition, end- stage condition or persistent vegetative state. . Today's verbally stated goals: No code. DNR/DNI. Patient wishing to continue aggressive management short of no code. . Family/friends goals: Patient's son Kash fully supported of patient's wishes. . Ethical and Legal Issues No ethical legal issues identified. . Physical Exam Vital Signs Date Time Temp Pulse Resp B/P (MAP) Pulse Ox O2 Delivery O2 Flow Rate FiO2 08/02/17 12:56 96 Nasal Cannula 2.00 08/02/17 12:00 97.3 107 22 129/65 (86) 97 08/02/17 12:00 110 08/02/17 08:00 106 08/02/17 08:00 Nasal Cannula 3.00 08/02/17 08:00 97.1 128 22 118/98 (105) 94 08/02/17 05:35 97.6 115 18 106/59 (75) 91 08/02/17 04:34 138 08/02/17 04:00 Nasal Cannula 3.00 08/02/17 03:31 93 Nasal Cannula 2.00 08/02/17 00:20 97.6 129 18 128/65 (86) 91 08/02/17 00:05 120 08/02/17 00:00 Nasal Cannula 3.00 08/01/17 21:50 97.5 132 18 119/63 (81) 91 08/01/17 20:08 114 08/01/17 20:00 Nasal Cannula 3.00 Exam CONSTITUTIONAL/GENERAL: This is an adequately nourished patient in moderate distress secondary to increased work of breathing after participating in PT. TUBES/LINES/DRAINS: Nasal cannula, PIV. SKIN: No jaundice, rashes, or lesions. Ecchymoses on upper extremities. No wounds seen anteriorly. Skin temperature appropriate. Not diaphoretic. HEAD: Atraumatic. Normocephalic. EYES: Pupils equal and round and reactive. Extraocular motions intact. No scleral icterus. No injection or drainage. ENT: Hearing grossly normal. Nose without bleeding or purulent drainage. Moist oral mucosa. NECK: Trachea midline. Supple, nontender. CARDIOVASCULAR: Regular rate and rhythm. Peripheral pulses symmetric. RESPIRATORY/CHEST: Symmetric, increased work of breathing. Clear, diminished to auscultation. Breath sounds equal bilaterally. GASTROINTESTINAL: Abdomen soft, non-tender, nondistended. No guarding. Bowel sounds present. GENITOURINARY: Without palpable bladder distension. MUSCULOSKELETAL: Extremities without clubbing, cyanosis. NEUROLOGICAL: Awake and alert to self, place and situation. Lethargic, fatigued. Follows commands. Moves all extremities. PSYCHIATRIC: Calm. . Diagnostic Tests Laboratory Laboratory Tests Test 07/31/17 05:49 07/31/17 10:05 08/01/17 08:05 08/02/17 08:26 White Blood Count 11.4 TH/MM3 (4.0-11.0) 10.0 TH/MM3 (4.0-11.0) 10.1 TH/MM3 (4.0-11.0) Red Blood Count 3.35 MIL/MM3 (4.00-5.30) 3.02 MIL/MM3 (4.00-5.30) 3.20 MIL/MM3 (4.00-5.30) Hemoglobin 9.7 GM/DL (11.6-15.3) 8.9 GM/DL (11.6-15.3) 9.5 GM/DL (11.6-15.3) Hematocrit 31.4 % (35.0-46.0) 27.9 % (35.0-46.0) 30.1 % (35.0-46.0) Mean Corpuscular Volume 93.9 FL (80.0-100.0) 92.4 FL (80.0-100.0) 94.1 FL (80.0-100.0) Mean Corpuscular Hemoglobin 29.0 PG (27.0-34.0) 29.5 PG (27.0-34.0) 29.7 PG (27.0-34.0) Mean Corpuscular Hemoglobin Concent 30.9 % (32.0-36.0) 31.9 % (32.0-36.0) 31.5 % (32.0-36.0) Red Cell Distribution Width 22.7 % (11.6-17.2) 21.8 % (11.6-17.2) 21.7 % (11.6-17.2) Platelet Count 241 TH/MM3 (150-450) 288 TH/MM3 (150-450) 226 TH/MM3 (150-450) Mean Platelet Volume 7.7 FL (7.0-11.0) 8.0 FL (7.0-11.0) 7.7 FL (7.0-11.0) Neutrophils (%) (Auto) 84.1 % (16.0-70.0) 80.2 % (16.0-70.0) 85.8 % (16.0-70.0) Lymphocytes (%) (Auto) 4.3 % (9.0-44.0) 6.4 % (9.0-44.0) 3.7 % (9.0-44.0) Monocytes (%) (Auto) 10.3 % (0.0-8.0) 11.6 % (0.0-8.0) 9.1 % (0.0-8.0) Eosinophils (%) (Auto) 0.4 % (0.0-4.0) 0.6 % (0.0-4.0) 0.1 % (0.0-4.0) Basophils (%) (Auto) 0.9 % (0.0-2.0) 1.2 % (0.0-2.0) 1.3 % (0.0-2.0) Neutrophils # (Auto) 9.6 TH/MM3 (1.8-7.7) 8.1 TH/MM3 (1.8-7.7) 8.7 TH/MM3 (1.8-7.7) Lymphocytes # (Auto) 0.5 TH/MM3 (1.0-4.8) 0.6 TH/MM3 (1.0-4.8) 0.4 TH/MM3 (1.0-4.8) Monocytes # (Auto) 1.2 TH/MM3 (0-0.9) 1.2 TH/MM3 (0-0.9) 0.9 TH/MM3 (0-0.9) Eosinophils # (Auto) 0.0 TH/MM3 (0-0.4) 0.1 TH/MM3 (0-0.4) 0.0 TH/MM3 (0-0.4) Basophils # (Auto) 0.1 TH/MM3 (0-0.2) 0.1 TH/MM3 (0-0.2) 0.1 TH/MM3 (0-0.2) CBC Comment AUTO DIFF AUTO DIFF AUTO DIFF Differential Total Cells Counted 100 100 100 Neutrophils % (Manual) 88 % (16-70) 82 % (16-70) 80 % (16-70) Lymphocytes % 4 % (9-44) 2 % (9-44) 4 % (9-44) Monocytes % 4 % (0-8) 5 % (0-8) 5 % (0-8) Eosinophils % 1 % (0-4) Basophils % 2 % (0-2) Neutrophils # (Manual) 10.1 TH/MM3 (1.8-7.7) 9.3 TH/MM3 (1.8-7.7) 9.2 TH/MM3 (1.8-7.7) Metamyelocytes 1 % (0-1) 1 % (0-1) Nucleated Red Blood Cells 3 /100 WBC (0-0) 2 /100 WBC (0-0) Differential Comment FINAL DIFF MANUAL FINAL DIFF MANUAL FINAL DIFF MANUAL Platelet Estimate NORMAL (NORMAL) NORMAL (NORMAL) NORMAL (NORMAL) Platelet Morphology Comment NORMAL (NORMAL) NORMAL (NORMAL) NORMAL (NORMAL) Basophilic Stippling MOD (NORMAL) Ovalocytes 2+ (NORMAL) 1+ (NORMAL) 1+ (NORMAL) Hematology Comments Blood Urea Nitrogen 44 MG/DL (7-18) 51 MG/DL (7-18) 31 MG/DL (7-18) Creatinine 3.37 MG/DL (0.50-1.00) 4.09 MG/DL (0.50-1.00) 3.12 MG/DL (0.50-1.00) Random Glucose 75 MG/DL (74-106) 99 MG/DL (74-106) 109 MG/DL (74-106) Calcium Level 8.5 MG/DL (8.5-10.1) 8.8 MG/DL (8.5-10.1) 8.9 MG/DL (8.5-10.1) Sodium Level 143 MEQ/L (136-145) 140 MEQ/L (136-145) 141 MEQ/L (136-145) Potassium Level 4.0 MEQ/L (3.5-5.1) 3.6 MEQ/L (3.5-5.1) 3.6 MEQ/L (3.5-5.1) Chloride Level 104 MEQ/L (98-107) 104 MEQ/L (98-107) 102 MEQ/L (98-107) Carbon Dioxide Level 29.1 MEQ/L (21.0-32.0) 27.7 MEQ/L (21.0-32.0) 29.5 MEQ/L (21.0-32.0) Anion Gap 10 MEQ/L (5-15) 8 MEQ/L (5-15) 10 MEQ/L (5-15) Estimat Glomerular Filtration Rate 13 ML/MIN (>89) 10 ML/MIN (>89) 14 ML/MIN (>89) Stool C. difficile Toxin (PCR) POSITIVE (NEGATIVE) Stl C. difficile Toxin Epiderm 027 PRESUMPTIVE POSITIVE Band Neutrophils % 10 % (0-6) 11 % (0-6) B-Type Natriuretic Peptide 1382 PG/ML (0-100) Result Diagram: 08/02/17 0826 08/02/17 0826 Imaging Last Impressions Chest X-Ray 07/28/17 0600 Signed Impressions: Service Date/Time: July 10:11 - CONCLUSION: Patchy opacities left lower lobe and probable small pleural effusion. Findings are more prominent on current study. Cardiomegaly. Trip Youssef MD Head CT 07/28/17 Signed Impressions: Service Date/Time: July 10:18 - CONCLUSION: 1. Right frontal intraparenchymal hemorrhage and adjacent vasogenic edema does not appear to have significantly changed. Hemorrhagic mass also remains in the differential but felt to be less likely. Trip Youssef MD Catheter Placement X-Ray 07/28/17 Signed Impressions: Service Date/Time: July 15:18 - CONCLUSION: Uncomplicated PermaCath placement as above. Thang Tucker Jr., MD Renal Ultrasound 07/27/17 0000 Signed Impressions: Service Date/Time: Thursday, July 27, 2017 15:35 - CONCLUSION: 1. Status post right nephrectomy without significant mass in the right nephrectomy bed. 2. No obstructive left sided uropathy. 3. here are least 2 dominant anechoic simple appearing cysts in the left kidney. Please note that additional left-sided lesions noted on recent CT examination are not demonstrated in the current exam , likely technical. Again, consider MRI examination on outpatient basis for further characterization of several left renal lesions with indeterminate density particularly in the superior pole. Andrés Jiang MD Procedures * 07/28/17 -Vas-Cath placement. . Patient/Family Conference Present at Family Conference: Patient and son Kash. Family Conference Time (mins): 42 Family Conference Location: Bedside Issues Discussed: * Palliative care role, purpose, approach * Additional medical, psychosocial, and spiritual history * Patients general health, functional status, and cognitive changes in the months leading up to the current hospitalization * Patient/family understanding of the current medical problems -end-stage renal disease, multiple chronic ongoing comorbidities, profound physical deconditioning. * Patient/family understanding of prognosis -poor overall prognosis for prolonged survival or improved quality of life. * Patients goals of care as best understood from advance directives and/or conversations and/or values * Current medical treatment options and benefits/burdens of those options * Likely scenarios comparing ongoing aggressive care with a transition to comfort measures only * Questions answered to the best of my ability * Palliative care contact information provided * Risks, benefits and limitations of CPR, intubation and mechanical ventilation * Hospice philosophy and benefits . Assessment and Plan Disease Oriented Problem List: (1) ESRD (end stage renal disease) (2) CHF (congestive heart failure) (3) Intraparenchymal hematoma of brain (4) C. difficile diarrhea (5) Rheumatoid arthritis (6) Physical deconditioning Symptom Scale: (1) Shortness of breath 0-10 Scale: Unable to quantify (2) Debility 0-10 Scale: Unable to quantify Pertinent Non-Medical Issues Psychosocial: Patient originally from [place]. Moved to [place] 33 years ago. She is , 10 years ago. Patient has one son who has been residing with her since September 2016. Spiritual: Taoist mitzy. Legal: Designation of healthcare surrogate completed. Ethical issues impacting care: No ethical issues identified. . Important Contacts Patient's son Kash/[facility] . . Prognosis Mrs. Perez is an 87-year-old female with a medical history significant for end- stage renal disease, CHF, atrial fibrillation, anemia, CAD, hypertension, rheumatoid arthritis and right nephrectomy. 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 Patient recently treated at acute care setting secondary to brain bleed from mechanical fall. Patient with documented progressive decline since September of last year. Currently end-stage renal disease requiring hemodialysis. Overall prognosis for improved quality of life or long-term survival is poor given multiple chronic ongoing comorbidities, progressive decline, end-stage renal disease requiring hemodialysis and profound physical deconditioning. Patient appears hospice appropriate should she/son elects comfort-directed care. . Code Status: No Code Plan * CODE STATUS: No code. DNR/DNI. Community DNR has been sign. * HEALTHCARE DECISION-MAKING: Patient participating in medical decision-making. She appears to have a fair understanding of her clinical condition and overall prognosis. However, intermittently confused, lethargic. Living will for designation of healthcare surrogate in file. Patient has designated her son Kash as healthcare surrogate decision maker. Palliative care recommends shared decision-making with son given the above. * GOALS OF CARE: Patient and son electing to continue current medical management short of no code, include hemodialysis and attempts at rehabilitation when medically clear. Concerns of overall poor prognosis for improved quality of life or prolonged survivor has been discussed. Hospice philosophy and benefits introduced at length. Reviewed the future role of hospice should patient's clinical condition does not improve, worsen or in the setting of increased symptom burden. Patient and son receptive to this. * Palliative care contact information has been provided to patient and family. * Palliative care will continue to follow-up for further clarifications of goals of care as patient's clinical course continues to evolve. . Time Spent Total Floor Time (mins): 68 (Total time to include review and summarization of available medical records to include prior hospitalization, physical exam, goals of care conversation with patient and son, assistance with completion of community DNR.) >50% Counseling/Coord of Care: Yes Thank you for the opportunity to participate in the care of Ms. Perez. Attestation To help prompt me to consider important information that might be impacting today's encounter and assessment, information from prior notes written by myself or my colleagues may have been "brought forward" into today's note. My signature on this note, however, is an attestation that I personally performed the exam, history, and/or decision-making noted today, and, unless otherwise indicated, the interactions with patient, family, and staff as well as the review of records all occurred today. I also attest that the listed assessment and stated plan reflect my best clinical judgment today based on the combination of historical information, prior notes, and today's exam/ interactions. When time spent is documented, it refers only to time spent today by the signer, or if indicated, combined time spent today by collaborating physician/nurse practitioner. Gali Shaw Aug 02, 2017 15:55
--- NOTE | 2017-08-02 17:48 | RADRPT ---
EXAM DATE/TIME: 08/02/2017 13:59 CORRECTION Corrected on: August 02, 2017; [place] COMPARISON: CHEST PA & LAT, July 28, 2017, 10:11. INDICATIONS : Short of breath. Evaluate for bronchiectasis. MEDICAL HISTORY : Congestive heart failure. Hypercholesterolemia. Pancreatitis. Thyroid disease. Glaucoma. Hyperlipidem ia. Dyspnea. GERD. Hiatal hernia. Renal cell carcinoma. Rheumatoid arthritis. Type II Diabetes. Osteo porosis. Right rotator cuff tear. Melanoma. Brain bleed from fall. SURGICAL HISTORY : None. Appendectomy. Cholecystectomy. Colon resection. Left eye retinal surgery. Cardiac cath. Bilat eral lumpectomy. Hysterectomy. Right nephrectomy. Parathyroid surgery x2. Blood transfusions. Left ar m fistula. ENCOUNTER: Subsequent ACUITY: 1 week PAIN SCORE: 0/10 LOCATION: Bilateral chest FINDINGS: There continues to be a patchy infiltrate in the left mid to low lung. There appears to be some mild improved aeration compared to the prior study. Right lung remains grossly clear. The heart size is st able. There is a right-sided central line in place. There is no pneumothorax. There continues to be b lunting of the left costophrenic angle suggestive of small to moderate effusion. There is a small rig ht-sided pleural effusion. Otherwise, no other significant changes are demonstrated. CONCLUSION: 1. Mild improved aeration of the left lung compared to the prior study. 2. Stable small to moderate left-sided pleural effusion. Stable small right pleural effusion. 3. Stable cardiomegaly. Soy Roe MD on August 02, 2017 at 17:44 Board Certified Radiologist. This report was verified electronically. Soy Reo MD on August 02, 2017 at 17:48 Board Certified Radiologist. This report was verified electronically.
[2017-08-02] MEDS: METOPROLOL TARTRATE 50 MG TAB PO SCH (21:26)
[2017-08-02] MEDS: ATORVASTATIN 20 MG TAB PO SCH (21:26)
[2017-08-03] VITALS (7 sets, daily range): BP systolic 109–119; BP diastolic 54–68; PULSE 90–122; RESP 20; TEMP 97.1–97.9; O2SAT 97–100
[2017-08-03] MEDS: RESP: ALBUTEROL 2.5 MG/IPRATROPIUM 0.5 MG NEB (SCH) INH ×3 (03:37→15:51)
[2017-08-03] MEDS: MIDODRINE 5 MG TAB PO SCH ×2 (05:37→13:58)
[2017-08-03] MEDS: LEVOTHYROXINE SODIUM 100 MCG TAB PO SCH (05:40)
[2017-08-03 06:57] LABS: HEMATOCRIT 30.3 % (35.0-46.0); HEMOGLOBIN 9.3 GM/DL (11.6-15.3); MEAN CELL VOLUME 94.4 FL (80.0-100.0); MEAN CORPUSCULAR HGB CONC 30.7 % (32.0-36.0); MEAN PLATELET VOLUME 7.9 FL (7.0-11.0); PLATELET COUNT 242 TH/MM3 (150-450); RED BLOOD COUNT 3.21 MIL/MM3 (4.00-5.30); RED CELL DISTRIBUTION WIDTH 21.8 % (11.6-17.2); WHITE BLOOD COUNT 10.8 TH/MM3 (4.0-11.0)
[2017-08-03 07:28] LABS: ALBUMIN 2.8 GM/DL (3.4-5.0); BICARBONATE 30.5 MEQ/L (21.0-32.0); CALCIUM 9.2 MG/DL (8.5-10.1); CREATININE 3.84 MG/DL (0.50-1.00)
[2017-08-03] MEDS: INSULIN ASPART SUPPLEMENTAL SCALE SQ SCH ×2 (08:00→12:00)
[2017-08-03] MEDS: METOPROLOL TARTRATE 50 MG TAB PO SCH (09:00)
[2017-08-03] MEDS: DOCUSATE SODIUM 50 MG/SENNA 8.6 MG TAB PO SCH (09:00)
[2017-08-03] MEDS: metroNIDAZOLE 500 MG TAB PO SCH ×2 (09:00→13:58)
--- NOTE | 2017-08-03 09:17 | HHI.FPPN ---
Subjective Remarks No acute events overnight. Vital signs remained stable overnight. She was seen while getting dialysis. She states that both her breathing and diarrhea are improved today. Only one bowel movement recorded over the last 24 hours. Denying chest pain, abdominal pain. (Facundo Stern MD R1) Objective Vitals Vital Signs Date Time Temp Pulse Resp B/P (MAP) Pulse Ox O2 Delivery O2 Flow Rate FiO2 08/03/17 04:00 97.9 100 20 109/66 (80) 100 08/03/17 04:00 95 08/03/17 04:00 Nasal Cannula 3.00 08/03/17 01:32 97 Nasal Cannula 2.00 08/03/17 00:00 97.6 98 20 112/68 (83) 99 08/03/17 00:00 Nasal Cannula 3.00 08/03/17 00:00 90 08/02/17 20:00 97.0 99 20 112/63 (79) 100 08/02/17 20:00 Nasal Cannula 3.00 08/02/17 19:46 98 08/02/17 16:00 97.1 96 22 117/70 (86) 100 08/02/17 15:27 96 Nasal Cannula 2.00 08/02/17 12:56 96 Nasal Cannula 2.00 08/02/17 12:00 97.3 107 22 129/65 (86) 97 08/02/17 12:00 110 I/O 08/02/17 08/02/17 08/02/17 08/03/17 08/03/17 08/03/17 07:00 15:00 23:00 07:00 15:00 23:00 Intake Total 0 ml 240 ml Output Total 0 ml Balance 0 ml 240 ml Intake Oral 0 ml 240 ml Output Urine Total 0 ml # Voids 1 # Bowel Movements 0 1 (Facundo Stern MD R1) Result Diagram: 08/03/17 0610 08/03/17 0610 Objective Remarks GENERAL: Well-nourished, well-developed elderly female in dialysis bed in no acute distress. SKIN: Warm and dry. No rashes or lesions present. EYES: No scleral icterus. No conjunctival injection or drainage. Extraocular movements intact. THROAT: Moist mucous membranes. NECK: Supple, trachea midline. CARDIOVASCULAR: Regular rate and rhythm without murmurs, gallops, or rubs. Strong radial and pedal pulses. CHEST: Symmetric chest expansion with respiration. RESPIRATORY: Breath sounds equal bilaterally with no crackles or wheezes appreciated. No accessory muscle use. Patient able to speak in full sentences without having shortness breath. GASTROINTESTINAL: Abdomen soft, non-tender, nondistended. Bowel sounds present and active. MUSCULOSKELETAL: No cyanosis. Trace lower extremity edema bilaterally. NEURO: No focal abnormalities appreciated. PSYCH: Normal mood and affect. (Facundo Stern MD R1) A/P Assessment and Plan Patient is an 87-year-old female with a past medical history significant for ESRD, recent intracranial hemorrhage, atrial fibrillation, diabetes, CHF, and hypertension who presented after being sent to the hospital by her director consumer affairs for increasing creatinine, fatigue, and lower extremity edema, admitted for worsening renal function. Patient was started on dialysis by director consumer affairs Dr. Waite. Palliative care was consulted and patient was made DNR, but she desires to continue treatment with outpatient dialysis and rehabilitation. Discharge Planning Patient to be discharged to SNF with dialysis (Facundo Stern MD R1) Attending Attestation Patient seen and examined, discussed with resident team. I agree with assessment and management as documented and discussed with me. Pt reports breathing is improved. Lungs clear on exam today. Discharge to SNF today. Will add ASA 81mg to regimen for antiplatelet effect. Pt with h/o A fib, but with intracranial hemorrhage approx 1 month ago while on Eliquis. She remains high risk of bleeding and falls, making restart of Eliquis concerning. (Mallorie Carrasco MD) Problem List: (1) ESRD (end stage renal disease) ICD Codes: N18.6 - End stage renal disease Status: Chronic Plan: Improving renal function with dialysis, and expressed with palliative care that she does desire to continue dialysis as an outpatient while in rehabilitation Dialysis today prior to discharge Creatinine 4.37 on admission, 3.84 today Creatinine baseline per records is 2.6-3.8. Creatinine 2.6 as recently as Jul 09. Patient follows with director consumer affairs Dr. Waite- appreciate nephrology's recommendations - Continue to follow renal function - Overall prognosis appears to be guarded - Will be discharged to SNF Dialysis schedule tentatively Tuesday, Tuesday, Tuesday on discharge. Continue EPO with HD Avoid nephrotoxic agents (2) CHF (congestive heart failure) ICD Codes: I50.9 - Heart failure, unspecified Status: Chronic Plan: Progressive SOB Last echo at [facility] in 2010: Ejection fraction 55-60%, left atrium mildly dilated BNP 641 on admission, trended up to 1382 on 08/02 Crackles heard on exam on 08/02 Chest x-ray on 08/02 showed mild improved aeration compared to prior studies, stable moderate left-sided pleural effusion, small right pleural effusion Lung exam improved on 08/03, no evidence of fluid overload on PE, no pitting edema Hold hypertensive medications Hold diuretics (3) HTN (hypertension) ICD Codes: I10 - HTN (hypertension) Status: Chronic Plan: Borderline hypotension previously, heart rate over the last 24 hours improving (heart rate in the 90s) Blood pressure last 24 hours in the 110's systolic Metoprolol 50mg twice a day per nephrology Midodrine for hypotension 3 times a day (4) Intraparenchymal hematoma of brain ICD Codes: S06.360A - Traumatic hemorrhage of cerebrum, unspecified, without loss of consciousness, initial encounter Status: Chronic Plan: Patient is s/p fall on July 14 with subsequent intracranial bleed and hospitalization at [facility] for one week. 07/27 CT head: Focal hemorrhage and right frontal region, parenchymal hemorrhage , small amount of subarachnoid hemorrhage, vasogenic edema in right frontal lobe - Radiologist confirms that this may be due to old hemorrhage 07/[address]: right frontal intraparenchymal hemorrhage and adjacent vasogenic edema does not appear to have significantly changed. Hemorrhagic mass also remains in the differential but felt to be less likely. Continue to monitor neurologic status (5) Glaucoma ICD Codes: H40.9 - Unspecified glaucoma Plan: Patient with a known history of glaucoma Holding home Timolol ophthalmic solution as this can contribute to hypotension Will need follow-up with information operator as outpatient (6) Afib ICD Codes: I48.91 - Afib Status: Chronic Plan: A. fib on EKG on admission Patient not on a daily anticoagulation due to recent fall and TBI and HD Continue metoprolol 50 mg twice a day (7) C. difficile diarrhea ICD Codes: A04.72 - Enterocolitis due to Clostridium difficile, not specified as recurrent Status: Acute Plan: Episodes of diarrhea have decreased over last 24 hours - only 1 bowel movement over the last 24 hours C.Diff positive on 07/31/17 Continue Flagyl 500mg PO q8hr (07/31 - 08/10) Probiotics (8) Hypothyroidism ICD Codes: E03.9 - Hypothyroidism, unspecified Status: Chronic Plan: TSH wnl at 3.480 Continue home levothyroxine 100 g daily (9) DM (diabetes mellitus screen) ICD Codes: Z13.1 - DM (diabetes mellitus screen) Status: Chronic Plan: Hold home Tradjenta Accu-Cheks with SSI (10) fen/ppx Status: Chronic Plan: Fluids: Encourage PO intake, careful with IV hydration due to CHF and ESRD Electrolytes: Continue to monitor and replete PRN Nutrition: Renal diet, encourage ensure supplement DVT prophylaxis: SCDs, daily chemical anticoagulation held for intracranial bleed (Facundo Stern MD R1) Problem Qualifiers (1) CHF (congestive heart failure): Qualified Codes: I50.9 - Heart failure, unspecified (2) HTN (hypertension): Qualified Codes: I10 - Essential (primary) hypertension (3) Intraparenchymal hematoma of brain: Qualified Codes: S06.349D - Traumatic hemorrhage of right cerebrum with loss of consciousness of unspecified duration, subsequent encounter (4) Glaucoma: Qualified Codes: H40.9 - Unspecified glaucoma (5) Afib: Qualified Codes: I48.2 - Chronic atrial fibrillation (6) Hypothyroidism: Qualified Codes: E03.9 - Hypothyroidism, unspecified Facundo Stern MD R1 Aug 03, 2017 09:17 Mallorie Carrasco MD Aug 03, 2017 17:00
[2017-08-03] MEDS ORDERED: METR-1 PO (09:33)
[2017-08-03] MEDS ORDERED: METO-309 PO (09:33)
[2017-08-03] MEDS ORDERED: MIDO5TAB PO (09:33)
--- NOTE | 2017-08-03 09:34 | HHI.DCPOC ---
Discharge Care Plan Diagnosis: (1) Hypothyroidism (2) ESRD (end stage renal disease) (3) C. difficile diarrhea (4) Glaucoma (5) DM (diabetes mellitus screen) (6) Shortness of breath Goals to Promote Your Health * To prevent worsening of your condition and complications * To maintain your health at the optimal level Directions to Meet Your Goals Take your medications as prescribed Follow your dietary instruction Follow activity as directed Keep your appointments as scheduled Take your immunizations and boosters as scheduled If your symptoms worsen call your PCP, if no PCP go to Urgent Care Center or Emergency Room Smoking is Dangerous to Your Health. Avoid second hand smoke Call the 24-hour hour crisis hotline for domestic abuse at Facundo Stern MD R1 Aug 03, 2017 09:34
[2017-08-03] MEDS ORDERED: OXYGENTANK NAS.CANULA (09:46)
[2017-08-03] MEDS ORDERED: IPRASOL INH (11:26)
[2017-08-03] MEDS ORDERED: LACTPOW68 PO (11:26)
[2017-08-03] MEDS: EPOETIN ALFA 10,000 UNITS/ML VIAL IV PUSH SCH (11:50)
[2017-08-03] MEDS ORDERED: ASPI-516 CHEW (11:59)
--- NOTE | 2017-08-03 12:11 | HHI.DS ---
Discharge Summary Admission Date Jul 27, 2017 at 13:41 Admitting Diagnosis Acute on chronic renal failure, CHF, hypoxia (1) ESRD (end stage renal disease) ICD Codes: N18.6 - End stage renal disease Status: Chronic (2) CHF (congestive heart failure) ICD Codes: I50.9 - Heart failure, unspecified Status: Chronic (3) HTN (hypertension) ICD Codes: I10 - HTN (hypertension) Status: Chronic (4) Intraparenchymal hematoma of brain ICD Codes: S06.360A - Traumatic hemorrhage of cerebrum, unspecified, without loss of consciousness, initial encounter Status: Chronic (5) C. difficile diarrhea ICD Codes: A04.72 - Enterocolitis due to Clostridium difficile, not specified as recurrent Status: Acute (6) Afib ICD Codes: I48.91 - Afib Status: Chronic (7) Glaucoma ICD Codes: H40.9 - Unspecified glaucoma Brief History 87 y/o F, hx of ESRD, send in by her collections curator's PA for her elevated creatinine, increased fatigue, and lower extremity swelling. The pt goes to the collections curator 1x/month, and she has an AV fistula partially placed. Her renal function has been pretty good recently (per pt family) but vascular surgeon was intending on placing the fistula just in case she needed it for dialysis in the future. The patient was scheduled for the second surgery installment of the fistula on July 18 but she didn't make the appt because of a fall on July 14. The patient had a bleed into her brain and was sent by [facility] to [facility], and released after a 1 week hospital stay. No neurosurgical operations were needed. They did not schedule her for any f/u, but said she would need a CT scan f/u at some point. She has also had a wet cough productive with clear mucous. Her cough has been going on for 6 months per the patient. The patient has not had any fevers at home. She has noticed that she has been getting more short of breath recently, and this is most noticeable when she lays down to go to sleep. The patient has also seemed more fatigued recently (per family member); she is more groggy in the mornings and less active than prior. The patient is fairly ambulatory and uses a cane to walk around the house with the assistance of someone on her side. Pt denies any N/V. Denies any constipation/diarrhea. Denies any changes. Denies any acute changes in mental status. CBC/BMP: 08/03/17 0610 08/03/17 0610 Significant Findings Laboratory Tests Test 08/01/17 08:05 08/02/17 08:26 08/03/17 06:10 Red Blood Count 3.02 MIL/MM3 (4.00-5.30) 3.20 MIL/MM3 (4.00-5.30) 3.21 MIL/MM3 (4.00-5.30) Hemoglobin 8.9 GM/DL (11.6-15.3) 9.5 GM/DL (11.6-15.3) 9.3 GM/DL (11.6-15.3) Hematocrit 27.9 % (35.0-46.0) 30.1 % (35.0-46.0) 30.3 % (35.0-46.0) Mean Corpuscular Hemoglobin Concent 31.9 % (32.0-36.0) 31.5 % (32.0-36.0) 30.7 % (32.0-36.0) Red Cell Distribution Width 21.8 % (11.6-17.2) 21.7 % (11.6-17.2) 21.8 % (11.6-17.2) Neutrophils (%) (Auto) 80.2 % (16.0-70.0) 85.8 % (16.0-70.0) Lymphocytes (%) (Auto) 6.4 % (9.0-44.0) 3.7 % (9.0-44.0) Monocytes (%) (Auto) 11.6 % (0.0-8.0) 9.1 % (0.0-8.0) Neutrophils # (Auto) 8.1 TH/MM3 (1.8-7.7) 8.7 TH/MM3 (1.8-7.7) Lymphocytes # (Auto) 0.6 TH/MM3 (1.0-4.8) 0.4 TH/MM3 (1.0-4.8) Monocytes # (Auto) 1.2 TH/MM3 (0-0.9) Neutrophils % (Manual) 82 % (16-70) 80 % (16-70) Band Neutrophils % 10 % (0-6) 11 % (0-6) Lymphocytes % 2 % (9-44) 4 % (9-44) Neutrophils # (Manual) 9.3 TH/MM3 (1.8-7.7) 9.2 TH/MM3 (1.8-7.7) Nucleated Red Blood Cells 2 /100 WBC (0-0) Ovalocytes 1+ (NORMAL) 1+ (NORMAL) Blood Urea Nitrogen 51 MG/DL (7-18) 31 MG/DL (7-18) 38 MG/DL (7-18) Creatinine 4.09 MG/DL (0.50-1.00) 3.12 MG/DL (0.50-1.00) 3.84 MG/DL (0.50-1.00) Estimat Glomerular Filtration Rate 10 ML/MIN (>89) 14 ML/MIN (>89) 11 ML/MIN (>89) Random Glucose 109 MG/DL (74-106) B-Type Natriuretic Peptide 1382 PG/ML (0-100) Albumin 2.8 GM/DL (3.4-5.0) Phosphorus Level 5.0 MG/DL (2.5-4.9) PE at Discharge GENERAL: Well-nourished, well-developed elderly female in dialysis bed in no acute distress. SKIN: Warm and dry. No rashes or lesions present. EYES: No scleral icterus. No conjunctival injection or drainage. Extraocular movements intact. THROAT: Moist mucous membranes. NECK: Supple, trachea midline. CARDIOVASCULAR: Regular rate and rhythm without murmurs, gallops, or rubs. Strong radial and pedal pulses. CHEST: Symmetric chest expansion with respiration. RESPIRATORY: Breath sounds equal bilaterally with no crackles or wheezes appreciated. No accessory muscle use. Patient able to speak in full sentences without having shortness breath. GASTROINTESTINAL: Abdomen soft, non-tender, nondistended. Bowel sounds present and active. MUSCULOSKELETAL: No cyanosis. Trace lower extremity edema bilaterally. NEURO: No focal abnormalities appreciated. PSYCH: Normal mood and affect. Hospital Course Patient was sent in by her collections curator due to an increasing creatinine, fatigue and lower extremity edema. On admission Creatinine was found to be 4.37 with baseline noted to be near 2.6. On 07/28 Right IJ permcath was placed for dialysis, and dialysis was initiated on 07/29. Patient had another session on 07/30 and was then scheduled for dialysis MWF. Creatinine improved to 3.37 but it remained elevated ranging from 3.12 to 4.09 during the remainder of the hospital stay. Of note patient had a fall on 07/14 prior to hospitalization in which she had an intracranial bleed. CT on admission showed findings consistent with a prior bleed, repeat CT on 07/28 showed no change. For this reason anticoagulation was held during hospital stay. She was borderline hypotensive on admission and home blood pressure medicines as well as Lasix were held. Of note patient has glaucoma and had been using timolol eyedrops which were also discontinued due to potential for hypotension. Patient was started on Midodrine 3 times a day for blood pressure. Blood pressure stabilized and patient resumed metoprolol treatment. Also of note, patient developed diarrhea during the hospital stay and was found to be C. difficile positive on 07/31. She was started on Flagyl 500 mg by mouth 3 times a day and diarrhea improved over the next 24 hours. She was discharged with a 10 day course of Flagyl. At that time it was determined by nephrology as well as the primary team that she was safe for discharge to a SNF for rehabilitation as well as outpatient dialysis. Pt Condition on Discharge: Good Discharge Disposition: Discharge to SNF Discharge Instructions DIET: Follow Instructions for: Renal Failure Diet Activities you can perform: Regular-No Restrictions Follow up Referrals: Nephrology Ophthalmology - 2 Weeks Discontinued home Timolol drops due to hypotension. PCP Follow-up - 1 Month SNF/NURSING HOME/ with [facility] New Medications: Aspirin (Aspirin) 81 Mg Chew 81 MG CHEW DAILY, #30 TAB 0 Refills Ipratropium-Albuterol Neb (Duoneb) 0.5-2.5 Mg/3 Ml Neb 1 NEBULE INH Q6HR NEB PRN for SOB/WHEEZING, #120 NEBULE 0 Refills Lactobacillus Acidophilus (Lactobacillus Acidophilus) 1 Pkt 1 PKT PO TID for Nutritional Supplement, #12 PKT 0 Refills Oxygen tank (Oxygen tank) 1 Ea Tank LITER KRUPA.CANULA CONTINUOUS for HYPOXEMIA PREVENTION, #2 Oxygen Concentrator Portable Gaseous 2 L/min via Nasal Cannula Continuous For 99 months Metoprolol Tartrate (Lopressor) 50 Mg Tab 50 MG PO Q12HR, #60 TAB Metronidazole (Flagyl) 500 Mg Tab 500 MG PO TID, #21 TAB Midodrine (Midodrine) 5 Mg Tab 5 MG PO TID@07,12,17, #90 TAB Continued Medications: B-Complex Vitamins (Vitamin B Complex) 1 Tab 1 TAB PO DAILY Biotin (Biotin) 1,000 Mcg Tab 1000 MG PO DAILY, #1 BOTTLE Calcium Citrate-Vitamin D (Citracal Maximum) 315-250 Mg-Unit Tab 2 TAB PO BID for Calcium Supplement, #100 TAB 0 Refills Epoetin Inj (Procrit Inj) 20,000 Unit/Ml [place] 21636 UNITS SQ EVERY 2 WEEKS for Anemia, #12 VIAL [address] (Nexium) 40 Mg Capdr 40 MG PO DAILY, CAP 0 Refills Febuxostat (Uloric) 40 Mg Tab 40 TAB PO DAILY Leflunomide (Leflunomide) 20 Mg Tab 20 MG PO MOWEFR, TAB Take 1 tablet (20mg) on Tuesday,Tuesday and Tuesday Levothyroxine (Levothyroxine) 100 Mcg Tab 100 MCG PO DAILY for Thyroid, #30 TAB 0 Refills Linagliptin (Tradjenta) 5 Mg Tab 5 MG PO DAILY for Blood Sugar Management, #30 TAB 0 Refills Lutein (Lutein) 20 Mg Cap 20 MG PO DAILY for Nutritional Supplement, CAP 0 Refills Multiple Vitamins W/ Minerals (Preservision Areds) 1 Tab 1 TAB PO DAILY for Nutritional Supplement, TAB 0 Refills Paricalcitol (Paricalcitol) 1 Mcg Cap 1 MCG PO 3XWEEK for Thyroid, #30 CAP 0 Refills Rosuvastatin (Crestor) 10 Mg Tab 10 MG PO HS for Cholesterol Management, #30 TAB 0 Refills Discontinued Medications: Amlodipine (Norvasc) 5 Mg Tab 5 MG PO BID for Blood Pressure Management, #30 TAB 0 Refills Bumetanide (Bumetanide) 1 Mg Tab 1 MG PO BID, #60 TAB 0 Refills Hydralazine HCl (Hydralazine HCl) 10 Mg Tablet 20 MG PO TID Losartan (Losartan) 100 Mg Tab 100 MG PO HS for Blood Pressure Management, #30 TAB 0 Refills Metolazone (Metolazone) 10 Mg Tab 10 MG PO QOD, #30 TAB 0 Refills Metoprolol Succinate ER 24 HR (Metoprolol Succinate ER 24 HR) 100 Mg Tab 100 MG PO BID, #30 TAB 0 Refills Timolol Opth Drops (Timoptic Opth Drops) 0.5 % Soln 1 DROP EACH EYE BID for Glaucoma, #1 BOTTLE 0 Refills Facundo Stern MD R1 Aug 03, 2017 12:10
[2017-08-03] MEDS: GENTAMICIN SULFATE 20 MG/2 ML VIAL OTHER PRN (12:20)
[2017-08-03] MEDS: SODIUM CHLORIDE 0.9% FLUSH 10 ML FLUSH IV FLUSH SCH (12:46)
[2017-08-03] MEDS: PANTOPRAZOLE SOD 40 MG DELAYED RELEASE TAB PO SCH (13:58)
[2017-08-03] MEDS: LEFLUNOMIDE 20 MG TAB PO SCH (14:13)
--- NOTE | 2017-08-03 14:51 | HHI.HCPN ---
Reason for visit a. To assist with evaluation and management of symptoms including: Shortness of breath, debility. b. To assist medical decision maker(s) with: better understanding of current medical conditions; weighing benefits/burdens of medical treatment options; making medical treatment decisions. . Subjective/Interval History Follow-up for clarifications of goals of care. Patient seen in her room, she was resting in bed in no acute distress. Son Kash at bedside. Patient awake , alert to self and situation. More interactive than yesterday. Reports feeling "better". Denies pain, shortness of breath or abdominal discomfort. Hemodialysis earlier today, 2L removed. No new imaging for review. Patient reports that her appetite is fair, ate most of her breakfast earlier this morning. Goals of care readdressed. Patient and son reports that patient is wishing for rehabilitation and continuation of hemodialysis as outpatient. Reviewed concerns of patient's progressive debility, concerns of patient's ability to participate in outpatient rehabilitation/hemodialysis. Reviewed overall poor prognosis for improved quality of life or long-term survival given multiple chronic ongoing comorbidities, progressive decline since November 2016, end-stage renal disease requiring hemodialysis and profound physical deconditioning. Patient with a good understanding of patient's condition and overall poor prognosis. He verbalized that he is receptive to hospice should patient's clinical condition worsen or she is unable to tolerate physical therapy. Community DNR has been sign, place in chart. Patient likely to discharge to snf facility within the next 24 hours. Palliative care to follow-up as needed. . Family/friend interactions See interval note. . Advance Directives Living Will: Copy in medical record Health Care Surrogate: Copy in medical record Advance Directive Specifics Date completed: 05/09/2017. . Health Care Surrogate(s): Patient has designated her son Kash Perez as healthcare surrogate decision maker. No alternate HCS designated. . Documented care wishes: Living will with standard verbiage as it pertains to terminal condition, end- stage condition or persistent vegetative state. . Significant change in goals: Continue aggressive management short of no code. . Objective Vital Signs Date Time Temp Pulse Resp B/P (MAP) Pulse Ox O2 Delivery O2 Flow Rate FiO2 08/03/17 08:00 96 08/03/17 07:50 97.1 105 20 119/59 (79) 99 08/03/17 04:00 97.9 100 20 109/66 (80) 100 2/7/18 04:00 95 08/03/17 04:00 Nasal Cannula 3.00 08/03/17 01:32 97 Nasal Cannula 2.00 08/03/17 00:00 97.6 98 20 112/68 (83) 99 08/03/17 00:00 Nasal Cannula 3.00 08/03/17 00:00 90 08/02/17 20:00 97.0 99 20 112/63 (79) 100 08/02/17 20:00 Nasal Cannula 3.00 08/02/17 19:46 98 08/02/17 16:00 97.1 96 22 117/70 (86) 100 08/02/17 15:27 96 Nasal Cannula 2.00 Intake & Output 08/03/17 08/03/17 07:00 19:00 Output Total 2000 ml Balance -2000 ml Hemodialysis 2000 ml Physical Exam CONSTITUTIONAL/GENERAL: This is an adequately nourished patient in no acute distress. TUBES/LINES/DRAINS: Nasal cannula, PIV. SKIN: No jaundice, rashes, or lesions. Ecchymoses on upper extremities. No wounds seen anteriorly. Skin temperature appropriate. Not diaphoretic. HEAD: Atraumatic. Normocephalic. EYES: Pupils equal and round and reactive. Extraocular motions intact. No scleral icterus. No injection or drainage. ENT: Hearing grossly normal. Nose without bleeding or purulent drainage. Moist oral mucosa. NECK: Trachea midline. Supple, nontender. CARDIOVASCULAR: Regular rate and rhythm. Peripheral pulses symmetric. RESPIRATORY/CHEST: Symmetric, unlabored respirations. Clear, diminished to auscultation. Breath sounds equal bilaterally. GASTROINTESTINAL: Abdomen soft, non-tender, nondistended. No guarding. Bowel sounds present. GENITOURINARY: Without palpable bladder distension. MUSCULOSKELETAL: Extremities without clubbing, cyanosis. NEUROLOGICAL: Awake and alert to self, place and situation. Sleepy. Follows commands. Moves all extremities. PSYCHIATRIC: Calm. . Diagnostic Tests Laboratory Laboratory Tests Test 08/01/17 08:05 08/02/17 08:26 08/03/17 06:10 White Blood Count 10.0 TH/MM3 (4.0-11.0) 10.1 TH/MM3 (4.0-11.0) 10.8 TH/MM3 (4.0-11.0) Red Blood Count 3.02 MIL/MM3 (4.00-5.30) 3.20 MIL/MM3 (4.00-5.30) 3.21 MIL/MM3 (4.00-5.30) Hemoglobin 8.9 GM/DL (11.6-15.3) 9.5 GM/DL (11.6-15.3) 9.3 GM/DL (11.6-15.3) Hematocrit 27.9 % (35.0-46.0) 30.1 % (35.0-46.0) 30.3 % (35.0-46.0) Mean Corpuscular Volume 92.4 FL (80.0-100.0) 94.1 FL (80.0-100.0) 94.4 FL (80.0-100.0) Mean Corpuscular Hemoglobin 29.5 PG (27.0-34.0) 29.7 PG (27.0-34.0) 29.0 PG (27.0-34.0) Mean Corpuscular Hemoglobin Concent 31.9 % (32.0-36.0) 31.5 % (32.0-36.0) 30.7 % (32.0-36.0) Red Cell Distribution Width 21.8 % (11.6-17.2) 21.7 % (11.6-17.2) 21.8 % (11.6-17.2) Platelet Count 288 TH/MM3 (150-450) 226 TH/MM3 (150-450) 242 TH/MM3 (150-450) Mean Platelet Volume 8.0 FL (7.0-11.0) 7.7 FL (7.0-11.0) 7.9 FL (7.0-11.0) Neutrophils (%) (Auto) 80.2 % (16.0-70.0) 85.8 % (16.0-70.0) Lymphocytes (%) (Auto) 6.4 % (9.0-44.0) 3.7 % (9.0-44.0) Monocytes (%) (Auto) 11.6 % (0.0-8.0) 9.1 % (0.0-8.0) Eosinophils (%) (Auto) 0.6 % (0.0-4.0) 0.1 % (0.0-4.0) Basophils (%) (Auto) 1.2 % (0.0-2.0) 1.3 % (0.0-2.0) Neutrophils # (Auto) 8.1 TH/MM3 (1.8-7.7) 8.7 TH/MM3 (1.8-7.7) Lymphocytes # (Auto) 0.6 TH/MM3 (1.0-4.8) 0.4 TH/MM3 (1.0-4.8) Monocytes # (Auto) 1.2 TH/MM3 (0-0.9) 0.9 TH/MM3 (0-0.9) Eosinophils # (Auto) 0.1 TH/MM3 (0-0.4) 0.0 TH/MM3 (0-0.4) Basophils # (Auto) 0.1 TH/MM3 (0-0.2) 0.1 TH/MM3 (0-0.2) CBC Comment AUTO DIFF AUTO DIFF Differential Total Cells Counted 100 100 Neutrophils % (Manual) 82 % (16-70) 80 % (16-70) Band Neutrophils % 10 % (0-6) 11 % (0-6) Lymphocytes % 2 % (9-44) 4 % (9-44) Monocytes % 5 % (0-8) 5 % (0-8) Neutrophils # (Manual) 9.3 TH/MM3 (1.8-7.7) 9.2 TH/MM3 (1.8-7.7) Metamyelocytes 1 % (0-1) Nucleated Red Blood Cells 2 /100 WBC (0-0) Differential Comment FINAL DIFF MANUAL FINAL DIFF MANUAL Platelet Estimate NORMAL (NORMAL) NORMAL (NORMAL) Platelet Morphology Comment NORMAL (NORMAL) NORMAL (NORMAL) Ovalocytes 1+ (NORMAL) 1+ (NORMAL) Blood Urea Nitrogen 51 MG/DL (7-18) 31 MG/DL (7-18) 38 MG/DL (7-18) Creatinine 4.09 MG/DL (0.50-1.00) 3.12 MG/DL (0.50-1.00) 3.84 MG/DL (0.50-1.00) Random Glucose 99 MG/DL (74-106) 109 MG/DL (74-106) 94 MG/DL (74-106) Calcium Level 8.8 MG/DL (8.5-10.1) 8.9 MG/DL (8.5-10.1) 9.2 MG/DL (8.5-10.1) Sodium Level 140 MEQ/L (136-145) 141 MEQ/L (136-145) 143 MEQ/L (136-145) Potassium Level 3.6 MEQ/L (3.5-5.1) 3.6 MEQ/L (3.5-5.1) 3.9 MEQ/L (3.5-5.1) Chloride Level 104 MEQ/L (98-107) 102 MEQ/L (98-107) 102 MEQ/L (98-107) Carbon Dioxide Level 27.7 MEQ/L (21.0-32.0) 29.5 MEQ/L (21.0-32.0) 30.5 MEQ/L (21.0-32.0) Anion Gap 8 MEQ/L (5-15) 10 MEQ/L (5-15) 11 MEQ/L (5-15) Estimat Glomerular Filtration Rate 10 ML/MIN (>89) 14 ML/MIN (>89) 11 ML/MIN (>89) B-Type Natriuretic Peptide 1382 PG/ML (0-100) Albumin 2.8 GM/DL (3.4-5.0) Phosphorus Level 5.0 MG/DL (2.5-4.9) Result Diagram: 08/03/1710 08/03/17 0610 Procedures * 07/28/17 -Vas-Cath placement. . Assessment and Plan Disease Oriented Problem List: (1) ESRD (end stage renal disease) (2) CHF (congestive heart failure) (3) Intraparenchymal hematoma of brain (4) C. difficile diarrhea (5) Rheumatoid arthritis (6) Physical deconditioning Symptom Scale: (1) Shortness of breath 0-10 Scale: Unable to quantify (2) Debility 0-10 Scale: Unable to quantify Pertinent Non-Medical Issues Psychosocial: Patient originally from [place]. Moved to [place] 33 years ago. She is , 10 years ago. Patient has one son who has been residing with her since September 2016. Spiritual: Anab[employer]ist mitzy. Legal: Designation of healthcare surrogate completed. Ethical issues impacting care: No ethical issues identified. . Important Contacts Patient's son Kash/[facility] . . Prognosis Mrs. Perez is an 87-year-old female with a medical history significant for end- stage renal disease, CHF, atrial fibrillation, anemia, CAD, hypertension, rheumatoid arthritis and right nephrectomy. 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 Patient recently treated at acute care setting secondary to brain bleed from mechanical fall. Patient with documented progressive decline since September of last year. Currently end-stage renal disease requiring hemodialysis. Overall prognosis for improved quality of life or long-term survival is poor given multiple chronic ongoing comorbidities, progressive decline, end-stage renal disease requiring hemodialysis and profound physical deconditioning. Patient appears hospice appropriate should she/son elects comfort-directed care. . Code Status: No Code Plan * CODE STATUS: No code. DNR/DNI. Community DNR has been signed and placed in chart. * HEALTHCARE DECISION-MAKING: Patient participating in medical decision-making. She appears to have a fair understanding of her clinical condition and overall prognosis. However, intermittently confused, lethargic. Living will for designation of healthcare surrogate in file. Patient has designated her son Kash as healthcare surrogate decision maker. Palliative care recommends shared decision-making with son given the above. * GOALS OF CARE: Patient and son electing to continue current medical management short of no code, include hemodialysis and attempts at rehabilitation when medically clear. Concerns of overall poor prognosis for improved quality of life or prolonged survivor has been discussed. Hospice philosophy and benefits has been discussed at length. Reviewed the future role of hospice should patient's clinical condition does not improve, worsen or in the setting of increased symptom burden. Patient and son receptive to this. * Palliative care contact information has been provided to patient and family. * Palliative care will continue to follow-up as needed for further clarifications of goals of care as patient's clinical course continues to evolve. . Time Spent Total Floor Time (mins): 33 (Total time to include review medical records, physical exam, goals of care conversation with patient's son.) >50% Counseling/Coord of Care: Yes Attestation To help prompt me to consider important information that might be impacting today's encounter and assessment, information from prior notes written by myself or my colleagues may have been "brought forward" into today's note. My signature on this note, however, is an attestation that I personally performed the exam, history, and/or decision-making noted today, and, unless otherwise indicated, the interactions with patient, family, and staff as well as the review of records all occurred today. I also attest that the listed assessment and stated plan reflect my best clinical judgment today based on the combination of historical information, prior notes, and today's exam/ interactions. When time spent is documented, it refers only to time spent today by the signer, or if indicated, combined time spent today by collaborating physician/nurse practitioner. Gali Shaw Aug 03, 2017 14:51
--- NOTE | 2017-08-03 17:07 | HHI.NPPN ---
Subjective History of Present Illness The patient is an 87 yo [place] female who was advised by our office to come to the hospital for further evaluation of renal decline and fluid retention. She has been stage 4/5 for some time with a developing LUE AVF. She fell 2 weeks ago and sustained a SDH treated at [facility]. When she presented to the office for f/u yesterday, it was noted that her SCr had risen to 3.7 (baseline 2.5-2.7 ) and that she had a significant amount of pitting edema in lower extremities. She is seen today s/p PermCath placement as SCr mike again this AM to 4.61 with a eGFR of 9 and it is recommended that we initiate dialysis during this admission given her progressive decline. Son, Kash, present in room. The patient herself if quite drowsy as she just had PermCath placed. Interval History The patient was seen postdialysis today. Complaining of generalized weakness. Also asking if "this is worth it". Review of Systems General Constitutional: Fatigue Respiratory Lungs: SOB Objective Data Data 08/03/17 08/04/17 19:00 07:00 Output Total 2000 ml Balance -2000 ml Hemodialysis 2000 ml Vital Signs Date Time Temp Pulse Resp B/P (MAP) Pulse Ox O2 Delivery O2 Flow Rate FiO2 08/03/17 15:51 99 Nasal Cannula 2.00 08/03/17 08:00 96 08/03/17 07:50 97.1 105 20 119/59 (79) 99 08/03/17 04:00 97.9 100 20 109/66 (80) 100 08/03/17 04:00 95 08/03/17 04:00 Nasal Cannula 3.00 08/03/17 01:32 97 Nasal Cannula 2.00 08/03/17 00:00 97.6 98 20 112/68 (83) 99 08/03/17 00:00 Nasal Cannula 3.00 08/03/17 00:00 90 08/02/17 20:00 97.0 99 20 112/63 (79) 100 08/02/17 20:00 Nasal Cannula 3.00 08/02/17 19:46 98 -: 08/03/17 0610 08/03/17 0610 Tubes & Lines: Perma-Cath Physical Exam General Appearance: Malnourished Pulmonary Resp Exam: Clear Bilaterally, Decreased Bases, Diminished Breath Sounds Cardiology CV Exam: Regular Gastrointestinal/Abdomen GI Exam: Soft, Non-Tender Integumentary Skin Exam: Clear, Warm Extremeties Extremities Exam: Trace Edema, Pitting Edema (1+ hips and BUE) Neurologic Neuro Exam: Awake Psychiatric Psych Exam: Appropriate Responses Assessment/Plan Discussed Condition With: Patient, Son Problem List: (1) ESRD (end stage renal disease) ICD Codes: N18.6 - End stage renal disease Status: Chronic Plan: Patient is being discharged to the rehabilitation center. I discussed with the patient and son [id number] issues. If the patient's overall condition fails to improve significantly with rehabilitation and dialysis I agree with the patient that continuance of aggressive medical care will have to be reevaluated. If the quality of life does not meet her expectations I believe it would be appropriate to consider hospice and discontinuance of dialysis. In the interim continue dialytic support as an outpatient. Patient's overall prognosis senior care appears to be guarded. Remains be determined whether not her overall condition and quality of life will improve with dialytic support. Medications should be adjusted for the patient's ESRD. Avoid gadolinium. (2) HTN (hypertension) ICD Codes: I10 - HTN (hypertension) Status: Chronic Plan: BP has been marginal, but improving. Will increase Metoprolol slightly given her tachycardia. (3) Anemia ICD Codes: D64.9 - Anemia, unspecified Status: Chronic Plan: Continue with Epogen. (4) Intraparenchymal hematoma of brain ICD Codes: S06.360A - Traumatic hemorrhage of cerebrum, unspecified, without loss of consciousness, initial encounter Status: Chronic Plan: Still present but does not appear to be worsening as per reports. Will hold heparin with HD. (5) Afib ICD Codes: I48.91 - Afib Status: Chronic (6) DM (diabetes mellitus screen) ICD Codes: Z13.1 - DM (diabetes mellitus screen) Status: Chronic Plan: Mgmt as per primary (7) Dyspnea ICD Codes: R06.00 - Dyspnea, unspecified Plan: Improve clinically. (8) C. difficile diarrhea ICD Codes: A04.72 - Enterocolitis due to Clostridium difficile, not specified as recurrent Status: Acute Problem Qualifiers (1) HTN (hypertension): Qualified Codes: I10 - Essential (primary) hypertension (2) Intraparenchymal hematoma of brain: Qualified Codes: S06.349D - Traumatic hemorrhage of right cerebrum with loss of consciousness of unspecified duration, subsequent encounter (3) Afib: Qualified Codes: I48.2 - Chronic atrial fibrillation Stephan Waite MD Aug 03, 2017 17:07
== END 2017-08-03 17:04 | DRG 682 ==
LOC: NEPE 10:28 → NEDA 13:41 → N04B 18:20
PROVIDERS: ADMIT Family Medicine; ATTEND Family Medicine
PROC: 05HM33Z Insertion of Infusion Device into Right Internal Jugular Vein, Percutaneous Approach (ICD-10-PCS; 2017-07-28)
PROC: 5A1D70Z Performance of Urinary Filtration, Intermittent, Less than 6 Hours Per Day (ICD-10-PCS; principal; 2017-07-30)
DX: N17.9 Acute kidney failure, unspecified (principal); G93.6 Cerebral edema; I13.2 Hypertensive heart and chronic kidney disease with heart failure and with stage 5 chronic kidney disease, or end stage renal disease; A04.72 Enterocolitis due to Clostridium difficile, not specified as recurrent; I95.9 Hypotension, unspecified; E11.22 Type 2 diabetes mellitus with diabetic chronic kidney disease; I48.2 Chronic atrial fibrillation; I50.9 Heart failure, unspecified; R00.1 Bradycardia, unspecified; D63.8 Anemia in other chronic diseases classified elsewhere; K21.9 Gastro-esophageal reflux disease without esophagitis; I25.10 Atherosclerotic heart disease of native coronary artery without angina pectoris; N18.6 End stage renal disease; E78.5 Hyperlipidemia, unspecified; M06.9 Rheumatoid arthritis, unspecified; M10.9 Gout, unspecified; H40.9 Unspecified glaucoma; E03.9 Hypothyroidism, unspecified; Z66 Do not resuscitate; R09.02 Hypoxemia; R00.0 Tachycardia, unspecified; R05 Cough; W18.30XD Fall on same level, unspecified, subsequent encounter; Z85.828 Personal history of other malignant neoplasm of skin; Z85.528 Personal history of other malignant neoplasm of kidney; Z90.5 Acquired absence of kidney; Z91.81 History of falling; Z99.2 Dependence on renal dialysis; S06.349D Traumatic hemorrhage of right cerebrum with loss of consciousness of unspecified duration, subsequent encounter
CPT/HCPCS: 36558; 70450; 71045; 71046; 76775; 76937; 77001; 80048; 80053; 80069; 80074; 81001; 82140; 82550; 82948; 83735; 83880; 84443; 84550; 85007; 85025; 85027; 85610; 85730; 86317; 86803; 87340; 87493; 90935; 93005; 94150; 94640; 94664; 96361; 96374; 96375; 99152; 99153; C1750; C1769; J0690; J1580; J1644; J1815; J1940; J2250; J3010; J7030; J7040; Q4081